=== PATIENT | male | born 1975 | race Caucasian/White ===

== ENCOUNTER 2017-02-09 11:39 | Inpatient (IN) | payer OTHER ==
[2017-02-09 12:51] VITALS: BMI 20.9
--- NOTE | 2017-02-09 14:57 | HP ---
COWS - Scale Resting Pulse: 0= MD 80 or Below Sweatin= Chills/Flushing Restless Observation: 3= Extraneous Movement Pupil Size: 2= Moderately Dilated Bone or Joint Aches: 4=Acute Joint/Muscle Pain Runny Nose/ Eye Tearin= Nasal Congestion GI Upset > 30mins: 1= Stomach Cramp Tremor Observation: 1= Tremor [place], Not Seen Yawning Observation: 1= 1-2x During Session Anxiety or Irritability: 1=Feels Anxious/Irritable Goose Flesh Skin: 0=Smooth Skin COWS Score: 15 CIWA Score - CIWA Score Nausea/Vomitin (N/V/D) Muscle Tremors: 3 Anxiety: 4-Mod. Anxious/Guarded Agitation: 3 Paroxysmal Sweats: 1-Minimal Palms Moist Orientation: 0-Oriented Tacttile Disturbances: 3-Moderate Itch/Numb/Burn Auditory Disturbances: 0-None Visual Disturbances: 0-None Headache: 1-Very Mild CIWA-Ar Total Score: 20 Admission ROS BHS - HPI Chief Complaint: DETOX TX FOR HEROIN AND ALCOHOL DEPENDENCE Allergies/Adverse Reactions: Allergies Allergy/AdvReac Type Severity Reaction Status Date / Time No Known Allergies Allergy Verified 02/09/17 13:47 History of Present Illness: 41 Y/O H/M WITH A HX OF HEROIN, ALCOHOL,COCAINE AND MARIJUANA DEPENDENCE SEEKING DETOX TX Exam Limitations: No Limitations - Ebola screening Have you traveled outside of the country in the last 21 days: No Have you had contact with anyone from an Ebola affected area: No Have you been sick,other than usual withdrawal symptoms: No Do you have a fever: No - Review of Systems Constitutional: Chills, Loss of Appetite, Night Sweats, Changes in sleep, Unintentional Wgt. Loss EENT: reports: Tearing, Nose Congestion, Dental Problems (MISSING UPPER FRONTAL TEETH) Respiratory: reports: Shortness of Breath (HX ASTHMA), Wheezing Cardiac: reports: Lightheadedness GI: reports: Constipated, Diarrhea, Nausea, Poor Appetite, Poor Fluid Intake, Vomiting, Abdominal cramping : reports: Frequency Musculoskeletal: reports: Back Pain, Joint Pain, Muscle Pain Integumentary: reports: Bruising (IVD INJ SITES ON BOTH FOREARMS) Neuro: reports: Headache, Tremors, Unsteady Gait, Dizziness Endocrine: reports: No Symptoms Reported Hematology: reports: No Symptoms Reported Psychiatric: reports: Orientated x3, Anxious, Depressed Other Systems: Reviewed and Negative Patient History - Patient Medical History Hx Anemia: No Hx Asthma: Yes (MDI) Hx Chronic Obstructive Pulmonary Disease (COPD): No Hx Cancer: No Hx Cardiac Disorders: No Hx Congestive Heart Failure: No Hx Hypertension: No Hx Hypercholesterolemia: No Hx Pacemaker: No HX Cerebrovascular Accident: No Hx Seizures: No Hx Dementia: No Hx Diabetes: No Hx Gastrointestinal Disorders: No Hx Liver Disease: No Hx Genitourinary Disorders: No Hx Sexually Transmitted Disorders: No Hx Renal Disease (ESRD): No Hx Thyroid Disease: No Hx Human Immunodeficiency Virus (HIV): No (denies) Hx Hepatitis C: Yes (undetecable) Hx Depression: Yes (NO CURRENT MED) Hx Suicide Attempt: No (DENIES) Hx Bipolar Disorder: Yes Hx Schizophrenia: No - Patient Surgical History Past Surgical History: Yes Hx Neurologic Surgery: No Hx Cataract Extraction: No Hx Cardiac Surgery: No Hx Lung Surgery: No Hx Breast Surgery: No Hx Breast Biopsy: No Hx Abdominal Surgery: Yes (appendectomy) Hx Appendectomy: No Hx Cholecystectomy: No Hx Genitourinary Surgery: No Hx Orthopedic Surgery: No Anesthesia Reaction: No - PPD History Previous Implant?: Yes Documented Results: Negative w/o proof Implanted On Prior R Admission?: Yes Date: 02/25/16 Results: no reading left PPD to be Administered?: Yes - Reproductive History Patient is a Female of Child Bearing Age (11 -55 yrs old): No (MALE) Patient : (N/A) - Smoking Cessation Smoking history: Current every day smoker Have you smoked in the past 12 months: Yes Aproximately how many cigarettes per day: 10 Hx Chewing Tobacco Use: No Initiated information on smoking cessation: Yes 'Breaking Loose' booklet given: 02/09/17 - Substance & Tx. History Hx Alcohol Use: Yes (BEER) Hx Substance Use: Yes (HEROIN/COCAINE/MARIJUANA) Substance Use Type: Alcohol, Cocaine, Heroin, Marijuana Hx Substance Use Treatment: Yes (LAST TX AT [facility] IN [place]) - Substances Abused Heroin Route: Injection Frequency: Daily Amount used: 20 bags Age of first use: 23 Date of Last Use: 02/09/17 Alcohol-beer Route: Oral Frequency: 1-2 times per week Amount used: 2-3 (12 oz.) Age of first use: 38 Date of Last Use: 02/04/17 Marijuana Route: Smoking Frequency: Daily Amount used: $35 Age of first use: 27 Date of Last Use: 02/09/17 Cocaine Amount used: 5 BAGS Age of first use: 36 Date of Last Use: 02/09/17 Family Disease History - Family Disease History Family Disease History: Other: Father (alcohol) Admission Physical Exam [facility] - Vital Signs Vital Signs: Vital Signs - 24 hr 02/09/17 12:48 Temperature 97 F L Pulse Rate 77 Respiratory 20 Rate Blood Pressure 125/78 - Physical General Appearance: Yes: Moderate Distress, Thin, Anxious HEENTM: Yes: EOMI, Normocephalic, [place], Pharynx Normal Respiratory: Yes: Chest Non-Tender, Lungs Clear, Normal Breath Sounds, No Respiratory Distress Neck: Yes: No masses,lesions,Nodules, Supple, Trachea in good position Breast: Yes: Breast Exam Deferred Cardiology: Yes: Regular Rhythm, Regular Rate, S1, S2 Abdominal: Yes: Normal Bowel Sounds, Non Tender, Soft Genitourinary: Yes: Other (N/C) Back: Yes: Within Normal Limits Musculoskeletal: Yes: full range of Motion, Gait Steady Extremities: Yes: Normal Range of Motion, Non-Tender Neurological: Yes: supervisor ore dressing II-XII NML intact, Fully Oriented, Alert Integumentary: Yes: Dry, Warm, Track [place] (NO REDNESS OR SWELLING) Lymphatic: Yes: Within Normal Limits - Diagnostic (1) Alcohol dependence with uncomplicated withdrawal Current Visit: Yes Status: Acute (2) Nicotine dependence Current Visit: Yes Status: Acute Qualifiers: Nicotine product type: cigarettes Substance use status: in withdrawal Qualified Code(s): F17.213 - Nicotine dependence, cigarettes, with withdrawal (3) Uncomplicated sedative, hypnotic or anxiolytic withdrawal Current Visit: No Status: Inactive (4) Weight loss Current Visit: Yes Status: Chronic (5) Asthma Current Visit: No Status: Chronic Qualifiers: Asthma severity: mild intermittent Asthma complication type: uncomplicated Qualified Code(s): J45.20 - Mild intermittent asthma, uncomplicated (6) Hepatitis C carrier Current Visit: Yes Status: Chronic (7) Cocaine dependence, uncomplicated Current Visit: Yes Status: Acute (8) Cannabis dependence, uncomplicated Current Visit: Yes Status: Acute Cleared for Admission S - Detox or Rehab [facility] Level of Care: Medically Managed Detox Regimen/Protocol: Methadone [facility] Breath Alcohol Content Breath Alcohol Content: 0 Urine Drug Screen - Results Drug Screen Negative: No Urine Drug Screen Results: THC-Marijuana, ANDRE-Cocaine, OPI-Opiates
[2017-02-09] MEDS ORDERED: MAG HYDROX/AL HYDROX/SIMETH 30 ML UNIT-DOSE CUP PO PRN (15:09)
[2017-02-09] MEDS ORDERED: MENTHOL/PHENOL 1 EACH UD MM PRN (15:09)
[2017-02-09] MEDS ORDERED: diphenhydrAMINE HCL 50 MG CAPSULE PO PRN (15:09)
[2017-02-09] MEDS ORDERED: IBUPROFEN 400 MG TABLET (FP) PO PRN (15:09)
[2017-02-09] MEDS ORDERED: ACETAMINOPHEN 325 MG TABLET (FP) PO PRN (15:09)
[2017-02-09] MEDS ORDERED: MAGNESIUM HYDROX 2400MG/30ML ORAL SUSPENSION 30 ML CUP PO PRN (15:09)
[2017-02-09] MEDS ORDERED: MAGNESIUM CITRATE 300 ML BOTTLE PO PRN (15:09)
[2017-02-09] MEDS ORDERED: P-EPHED 60MG/TRIPROLIDI 2.5MG TABLET PO PRN (15:09)
[2017-02-09] MEDS ORDERED: guaiFENesin/D-METHORPHAN HB 10 ML UNIT-DOSE CUPS PO PRN (15:09)
[2017-02-09] MEDS ORDERED: LOPERAMIDE HCL 2 MG CAPSULE PO PRN (15:09)
[2017-02-09] MEDS ORDERED: NICOTINE POLACRILEX 2 MG GUM BC PRN (15:09)
[2017-02-09] MEDS ORDERED: hydrOXYzine PAMOATE 25 MG CAPSULE (FP) PO PRN (15:09)
[2017-02-09] MEDS ORDERED: ALBUTEROL SO4 6.7 GM HFA INHALER IH PRN (15:13)
[2017-02-09 17:00] LABS: MCH 31.4 pg (25.7-33.7); MEAN CELL VOLUME 92.2 fl (80-96); PLATELET COUNT 211 K/MM3 (134-434); RDW 13.5 % (11.9-15.9)
[2017-02-09] MEDS ORDERED: METHADONE HCL 10 MG TABLET (FOR DETOX USE ONLY) PO ONE ×2 (17:15→23:00)
[2017-02-09] MEDS: diazePAM 5 MG TABLET PO PRN ×2 (17:31→22:29)
[2017-02-09] MEDS: NICOTINE 14 MG/24 HOURS TOPICAL PATCH TD SCH (18:16)
[2017-02-09 21:11] LABS: URINE APPEARANCE CLEAR; URINE BILIRUBIN NEGATIVE (NEGATIVE); URINE BLOOD NEGATIVE (NEGATIVE); URINE COLOR YELLOW; URINE GLUCOSE (UA) NEGATIVE (NEGATIVE); URINE KETONE NEGATIVE (NEGATIVE); URINE LEUK ESTERASE NEGATIVE (NEGATIVE); URINE NITRITE NEGATIVE (NEGATIVE); URINE PROTEIN NEGATIVE (NEGATIVE); URINE UROBILINOGEN NEGATIVE mg/dL (0.2-1.0)
[2017-02-09] MEDS: THIAMINE HCL 100 MG TABLET (FP) PO SCH (22:30)
[2017-02-10 02:09] LABS: ALBUMIN 4.1 g/dl (3.4-5.0); ANION GAP 6 (8-16); BILIRUBIN,TOTAL 0.5 mg/dL (0.2-1.0); CALCIUM 9.1 mg/dL (8.5-10.1); CO2 32 mmol/L (21-32); CREATININE 0.8 mg/dL (0.7-1.3); GLUCOSE,RANDOM 95 mg/dL (74-106); SGOT/AST 25 U/L (15-37); SGPT/ALT 54 U/L (12-78); TOT PROT 7.3 g/dl (6.4-8.2)
[2017-02-10 02:10] LABS: ALK PHOS 59 U/L (45-117)
[2017-02-10] MEDS: diazePAM 5 MG TABLET PO PRN (07:55)
[2017-02-10] MEDS ORDERED: METHADONE HCL 10 MG TABLET (FOR DETOX USE ONLY) PO ONE (10:00)
[2017-02-10] MEDS ORDERED: PRENATAL VITAMINS W/ FOLIC ACID TABLET (FP) PO SCH (10:00)
[2017-02-10] MEDS: HYDROCORTISONE 0.5% TOPICAL CREAM 30 GM TUBE TP SCH ×2 (10:12→22:29)
[2017-02-10] MEDS: NICOTINE 14 MG/24 HOURS TOPICAL PATCH TD SCH (10:13)
[2017-02-10] MEDS ORDERED: chlordiazePOXIDE HCL 25 MG CAPSULE PO PRN (10:19)
--- NOTE | 2017-02-10 11:02 | CONSULT ---
[facility] Psychiatric Consult - Data Date of interview: 02/10/17 Admission source: [facility] Identifying data: This is 41 years old male with no psychiatric hospitalization history intoxicated with Alcohol, Cocaine, Cannabis, Xanax and Nicotine Substance Abuse History: - Smoking Cessation. Smoking history: Current every day smoker. Have you smoked in the past 12 months: Yes. Aproximately how many cigarettes per day: 10. Hx Chewing Tobacco Use: No. Initiated information on smoking cessation: Yes. 'Breaking Loose' booklet given: 02/09/17. - Substance & Tx. History. Hx Alcohol Use: Yes (BEER). Hx Substance Use: Yes (HEROIN/ COCAINE/MARIJUANA). Substance Use Type: Alcohol, Cocaine, Heroin, Marijuana. Hx Substance Use Treatment: Yes (LAST TX AT [facility] [place] - Substances Abused. Heroin. Route: Injection. Frequency: Daily. Amount used: 20 bags. Age of first use: 23. Date of Last Use: 02/09/17. Alcohol-beer. Route: Oral. Frequency: 1-2 times per week. Amount used: 2-3 (12 oz.). Age of first use: 38. Date of Last Use: 02/04/17. Marijuana. Route: Smoking. Frequency: Daily. Amount used: $35. Age of first use: 27. Date of Last Use: 02/09/17. Cocaine. Amount used: 5 BAGS. Age of first use: 36. Date of Last Use: 02/09/17 Medical History: HepC+, Weight loss hidtory, Asthma, MMTP 20mg per day Psychiatric History: Patient reports no prior psychiatric managenet, preoccupied with insomnia , reports good response on Ambien 10mg po qhs. Donna johnson denies suicidal history Physical/Sexual Abuse/Trauma History: Denies Additional Comment: Ambien 10mg po qhs Mental Status Exam - Mental Status Exam Alert and Oriented to: Person Cognitive Function: Fair Patient Appearance: Unkempt Mood: Sad Affect: Flat Patient Behavior: Sedated Speech Pattern: Delayed Voice Loudness: Mildly Soft/Quiet Thought Process: Circumstantial Thought Disorder: Being Controlled Hallucinations: Denies Suicidal Ideation: Denies Homicidal Ideation: Denies Insight/Judgement: Fair Sleep: Difficulty falling asleep Appetite: Weight loss Muscle strength/Tone: Mild Hypotonicity Gait/Station: Shuffling Additional Comments: Ambien 10mg po qhs Psychiatric Findings - Problem List ([place] 1, 2,3) (1) Alcohol dependence with uncomplicated withdrawal Current Visit: Yes Status: Acute (2) Cannabis dependence, uncomplicated Current Visit: Yes Status: Acute (3) Cocaine dependence, uncomplicated Current Visit: Yes Status: Acute (4) Nicotine dependence Current Visit: Yes Status: Acute Qualifiers: Nicotine product type: cigarettes Substance use status: in withdrawal Qualified Code(s): F17.213 - Nicotine dependence, cigarettes, with withdrawal (5) Alcohol induced sleep disorders Current Visit: No Status: Acute (6) Alcohol-induced mood disorder Current Visit: No Status: Acute (7) Opioid dependence on agonist therapy Current Visit: No Status: Acute (8) Substance induced mood disorder Current Visit: No Status: Acute (9) Methadone maintenance therapy patient Current Visit: No Status: Chronic Comment: last dose taken today with 50mg pending verification (10) Drug-induced mood disorder Current Visit: Yes Status: Acute - Initial Treatment Plan Initial Treatment Plan: Ambien 10mg po qhs prn for insomnia
[2017-02-10] MEDS: chlordiazePOXIDE HCL 25 MG CAPSULE PO SCH ×3 (11:47→22:29)
--- NOTE | 2017-02-10 12:26 | PN ---
S CIWA - CIWA Score Nausea/Vomitin Muscle Tremors: 3 Anxiety: 3 Agitation: 2 Paroxysmal Sweats: 1-Minimal Palms Moist Orientation: 0-Oriented Tacttile Disturbances: 1-Very Mild Itch/Numbness Auditory Disturbances: 1-Very Mild Visual Disturbances: 1-Very Mild Sensitivity Headache: 2-Mild CIWA-Ar Total Score: 17 BHS COWS - Scale Resting Pulse: 0= MD 80 or Below Sweatin= Chills/Flushing Restless Observation: 3= Extraneous Movement Pupil Size: 1= Pupils >than Normal Bone or Joint Aches: 2= Severe Diffuse Aches Runny Nose/ Eye Tearin= Runny Nose/Eyes GI Upset > 30mins: 2= Nausea/Diarrhea Tremor Observation of Outstretched Hands: 2= Slight Tremor Visible Yawning Observation: 1= 1-2x During Session Anxiety or Irritability: 2=Irritable/Anxious Goose Flesh Skin: 0=Smooth Skin COWS Score: 16 S Progress Note (SOAP) Subjective: alert,irritable,anxious,interrupted sleep,pain in he body Objective: 02/10/17 12:23 Vital Signs Temperature 97.7 F 02/10/17 10:00 Pulse Rate 61 02/10/17 10:00 Respiratory Rate 18 02/10/17 10:00 Blood Pressure 105/70 02/10/17 10:00 O2 Sat by Pulse Oximetry (%) 02/10/17 12:24 ekg nsr Laboratory Last Values WBC 9.0 K/mm3 (4.0-10.0) 02/09/17 15:00 RBC 4.44 M/mm3 (4.00-5.60) 02/09/17 15:00 Hgb 13.9 GM/dL (11.7-16.9) 02/09/17 15:00 Hct 41.0 % (35.4-49) 02/09/17 15:00 MCV 92.2 fl (80-96) 02/09/17 15:00 MCH 31.4 pg (25.7-33.7) 02/09/17 15:00 MCHC 34.0 g/dl (32.0-35.9) 02/09/17 15:00 RDW 13.5 % (11.9-15.9) 02/09/17 15:00 Plt Count 211 K/MM3 (134-434) D 02/09/17 15:00 MPV 9.0 fl (7.5-11.1) 02/09/17 15:00 Sodium 140 mmol/L (136-145) 02/09/17 15:00 Potassium 4.4 mmol/L (3.5-5.1) 02/09/17 15:00 Chloride 102 mmol/L (98-107) 02/09/17 15:00 Carbon Dioxide 32 mmol/L (21-32) 02/09/17 15:00 Anion Gap 6 (8-16) L 02/09/17 15:00 BUN 15 mg/dL (7-18) 02/09/17 15:00 Creatinine 0.8 mg/dL (0.7-1.3) 02/09/17 15:00 Creat Clearance w eGFR > 60 (>60) 02/09/17 15:00 Random Glucose 95 mg/dL (74-106) 02/09/17 15:00 Calcium 9.1 mg/dL (8.5-10.1) 02/09/17 15:00 Total Bilirubin 0.5 mg/dL (0.2-1.0) 02/09/17 15:00 AST 25 U/L (15-37) D 02/09/17 15:00 ALT 54 U/L (12-78) 02/09/17 15:00 Alkaline Phosphatase 59 U/L (45-117) 02/09/17 15:00 Total Protein 7.3 g/dl (6.4-8.2) 02/09/17 15:00 Albumin 4.1 g/dl (3.4-5.0) 02/09/17 15:00 Urine Color Yellow 02/09/17 17:01 Urine Appearance Clear 02/09/17 17:01 Urine pH 5.0 (5.0-8.0) 02/09/17 17:01 Ur Specific [place] 1.025 (1.005-1.025) 02/09/17 17:01 Urine Protein Negative (NEGATIVE) 02/09/17 17:01 Urine Glucose (UA) Negative (NEGATIVE) 02/09/17 17:01 Urine Ketones Negative (NEGATIVE) 02/09/17 17:01 Urine Blood Negative (NEGATIVE) 02/09/17 17:01 Urine Nitrite Negative (NEGATIVE) 02/09/17 17:01 Urine Bilirubin Negative (NEGATIVE) 02/09/17 17:01 Urine Urobilinogen Negative mg/dL (0.2-1.0) 02/09/17 17:01 Ur Leukocyte Esterase Negative (NEGATIVE) 02/09/17 17:01 RPR Titer Nonreactive (NONREACTIVE) 02/09/17 15:00 Assessment: 02/10/17 12:25 withdrawal symptom Plan: patient regimen changed to methadone and librium
--- NOTE | 2017-02-10 15:38 | EKG ---
Test Reason : Blood Pressure : / mmHG Vent. Rate : 070 BPM Atrial Rate : 070 BPM P-R Int : 144 ms QRS Dur : 088 ms QT Int : 366 ms P-R-T Axes : 028 116 060 degrees QTc Int : 395 ms NORMAL SINUS RHYTHM LEFT POSTERIOR FASCICULAR BLOCK ABNORMAL ECG NO PREVIOUS ECGS AVAILABLE Confirmed by ZANDRA WELLINGTON MD ([id number]) on 02/10/2017 3:38:09 PM Referred By: Confirmed By:ZANDRA WELLINGTON MD
[2017-02-10] MEDS ORDERED: ZOLPIDEM TARTRATE 10 MG TABLET (PARK CARE ONLY) PO PRN (22:00)
[2017-02-10] MEDS: THIAMINE HCL 100 MG TABLET (FP) PO SCH (22:29)
[2017-02-11] MEDS: chlordiazePOXIDE HCL 25 MG CAPSULE PO SCH (06:03)
[2017-02-11 06:25] VITALS: BP 114/50; PULSE 64; TEMP 97.3
--- NOTE | 2017-02-11 08:10 | PN ---
S CIWA - CIWA Score Nausea/Vomitin Muscle Tremors: 3 Anxiety: 3 Agitation: 3 Paroxysmal Sweats: 1-Minimal Palms Moist Orientation: 0-Oriented Tacttile Disturbances: 1-Very Mild Itch/Numbness Auditory Disturbances: 1-Very Mild Visual Disturbances: 0-None Headache: 2-Mild CIWA-Ar Total Score: 17 BHS COWS - Scale Resting Pulse: 0= MD 80 or Below Sweatin= Chills/Flushing Restless Observation: 3= Extraneous Movement Pupil Size: 1= Pupils >than Normal Bone or Joint Aches: 2= Severe Diffuse Aches Runny Nose/ Eye Tearin= Runny Nose/Eyes GI Upset > 30mins: 2= Nausea/Diarrhea Tremor Observation of Outstretched Hands: 2= Slight Tremor Visible Yawning Observation: 1= 1-2x During Session Anxiety or Irritability: 2=Irritable/Anxious Goose Flesh Skin: 0=Smooth Skin COWS Score: 16 S Progress Note (SOAP) Subjective: alert,irritable,anxious,interrupted sleep,pain in the body and back Objective: 02/11/17 08:08 Vital Signs Temperature 97.3 F L 02/11/17 06:24 Pulse Rate 64 02/11/17 06:24 Respiratory Rate 16 02/11/17 06:24 Blood Pressure 114/50 02/11/17 06:24 O2 Sat by Pulse Oximetry (%) Laboratory Last Values WBC 9.0 K/mm3 (4.0-10.0) 02/09/17 15:00 RBC 4.44 M/mm3 (4.00-5.60) 02/09/17 15:00 Hgb 13.9 GM/dL (11.7-16.9) 02/09/17 15:00 Hct 41.0 % (35.4-49) 02/09/17 15:00 MCV 92.2 fl (80-96) 02/09/17 15:00 MCH 31.4 pg (25.7-33.7) 02/09/17 15:00 MCHC 34.0 g/dl (32.0-35.9) 02/09/17 15:00 RDW 13.5 % (11.9-15.9) 02/09/17 15:00 Plt Count 211 K/MM3 (134-434) D 02/09/17 15:00 MPV 9.0 fl (7.5-11.1) 02/09/17 15:00 Sodium 140 mmol/L (136-145) 02/09/17 15:00 Potassium 4.4 mmol/L (3.5-5.1) 02/09/17 15:00 Chloride 102 mmol/L (98-107) 02/09/17 15:00 Carbon Dioxide 32 mmol/L (21-32) 02/09/17 15:00 Anion Gap 6 (8-16) L 02/09/17 15:00 BUN 15 mg/dL (7-18) 02/09/17 15:00 Creatinine 0.8 mg/dL (0.7-1.3) 02/09/17 15:00 Creat Clearance w eGFR > 60 (>60) 02/09/17 15:00 Random Glucose 95 mg/dL (74-106) 02/09/17 15:00 Calcium 9.1 mg/dL (8.5-10.1) 02/09/17 15:00 Total Bilirubin 0.5 mg/dL (0.2-1.0) 02/09/17 15:00 AST 25 U/L (15-37) D 02/09/17 15:00 ALT 54 U/L (12-78) 02/09/17 15:00 Alkaline Phosphatase 59 U/L (45-117) 02/09/17 15:00 Total Protein 7.3 g/dl (6.4-8.2) 02/09/17 15:00 Albumin 4.1 g/dl (3.4-5.0) 02/09/17 15:00 Urine Color Yellow 02/09/17 17:01 Urine Appearance Clear 02/09/17 17:01 Urine pH 5.0 (5.0-8.0) 02/09/17 17:01 Ur Specific [place] 1.025 (1.005-1.025) 02/09/17 17:01 Urine Protein Negative (NEGATIVE) 02/09/17 17:01 Urine Glucose (UA) Negative (NEGATIVE) 02/09/17 17:01 Urine Ketones Negative (NEGATIVE) 02/09/17 17:01 Urine Blood Negative (NEGATIVE) 02/09/17 17:01 Urine Nitrite Negative (NEGATIVE) 02/09/17 17:01 Urine Bilirubin Negative (NEGATIVE) 02/09/17 17:01 Urine Urobilinogen Negative mg/dL (0.2-1.0) 02/09/17 17:01 Ur Leukocyte Esterase Negative (NEGATIVE) 02/09/17 17:01 RPR Titer Nonreactive (NONREACTIVE) 02/09/17 15:00 Assessment: 02/11/17 08:09 withdrawal symptom Plan: continue detox
--- NOTE | 2017-02-11 08:14 | DS ---
[facility] Detox Discharge Summary Admission Date: 02/09/17 Discharge Date: 02/11/17 - History Present History: Alcohol Dependence, Cannabis Dependence, Cocaine Dependence, Opioid Dependence, Sedative Dependence Additional Comments: patient did not want to complete treatment,singed release amralph,seen by counselor Pertinent Past History: asthma nicotine dependence weight loss - Physical Exam Results Vital Signs: Vital Signs Temperature 97.3 F L 02/11/17 06:24 Pulse Rate 64 02/11/17 06:24 Respiratory Rate 16 02/11/17 06:24 Blood Pressure 114/50 02/11/17 06:24 O2 Sat by Pulse Oximetry (%) Pertinent Admission Physical Exam Findings: withdrawal symptom - Medication Discharge Medications: Ambulatory Orders Albuterol Sulfate Inhaler - [Ventolin Hfa Inhaler -] 2 inh PO Q4H PRN 10/09/15 Zolpidem Tartrate [Ambien] 10 mg PO HS 02/09/17 - AMA Did Patient Leave Against Medical Advice: Yes
[2017-02-11] MEDS ORDERED: METHADONE HCL 5 MG TABLET (FOR DETOX USE ONLY) PO ONE (10:00)
[2017-02-11] MEDS ORDERED: chlordiazePOXIDE HCL 25 MG CAPSULE PO SCH (11:00)
[2017-02-12] MEDS ORDERED: METHADONE HCL 5 MG TABLET (FOR DETOX USE ONLY) PO ONE (10:00)
[2017-02-12] MEDS ORDERED: chlordiazePOXIDE 5 MG CAPSULE PO SCH (11:00)
[2017-02-13] MEDS ORDERED: METHADONE HCL 10 MG TABLET (FOR DETOX USE ONLY) PO ONE (10:00)
[2017-02-13] MEDS ORDERED: chlordiazePOXIDE HCL 10 MG CAPSULE PO SCH (11:00)
[2017-02-14] MEDS ORDERED: METHADONE HCL 5 MG TABLET (FOR DETOX USE ONLY) PO ONE (06:00)
== END 2017-02-11 08:40 | disposition left against medical advice (07) | DRG 770 ==
LOC: YASAS 11:39 → Y6N 16:11
PROVIDERS: ADMIT Internal Medicine; ATTEND Internal Medicine
PROC: HZ2ZZZZ Detoxification Services for Substance Abuse Treatment (ICD-10-PCS; principal; 2017-02-09)
DX: F10.230 Alcohol dependence with withdrawal, uncomplicated (principal); F11.20 Opioid dependence, uncomplicated; F10.24 Alcohol dependence with alcohol-induced mood disorder; F10.282 Alcohol dependence with alcohol-induced sleep disorder; F14.20 Cocaine dependence, uncomplicated; F12.20 Cannabis dependence, uncomplicated; F17.210 Nicotine dependence, cigarettes, uncomplicated; F19.24 Other psychoactive substance dependence with psychoactive substance-induced mood disorder; J45.20 Mild intermittent asthma, uncomplicated; B18.2 Chronic viral hepatitis C
CPT/HCPCS: 36415; 80053; 81003; 85027; 86593; 93005; 93010

== ENCOUNTER 2017-05-30 08:41 | Inpatient (IN) | payer OTHER ==
[2017-05-30 09:13] VITALS: BMI 22.7
--- NOTE | 2017-05-30 13:43 | HP ---
COWS - Scale Resting Pulse: 1= [place] 81-100 Sweatin=Flushed/Facial Moisture Restless Observation: 1= Difficult to Sit Still Pupil Size: 0= Normal to Room Light Bone or Joint Aches: 2= Severe Diffuse Aches Runny Nose/ Eye Tearin= Runny Nose/Eyes GI Upset > 30mins: 2= Nausea/Diarrhea Tremor Observation: 2= Slight Tremor Visible Yawning Observation: 2= >3x During Session Anxiety or Irritability: 2=Irritable/Anxious Goose Flesh Skin: 3=Piloerection COWS Score: 19 CIWA Score - CIWA Score Nausea/Vomitin-Mild Nausea/No Vomiting Muscle Tremors: 4-Moderate,w/Arms Extend Anxiety: 3 Agitation: 3 Paroxysmal Sweats: 3 Orientation: 0-Oriented Tacttile Disturbances: 0-None Auditory Disturbances: 0-None Visual Disturbances: 0-None Headache: 0-None Present CIWA-Ar Total Score: 14 Admission ROS [facility] - HPI Chief Complaint: I am here for detox. Allergies/Adverse Reactions: Allergies Allergy/AdvReac Type Severity Reaction Status Date / Time No Known Allergies Allergy Verified 05/30/17 10:00 History of Present Illness: pt is a 41yr old male with a history of opioid and alcohol dependence seeking detox for treatment. pt had belonged to a methadone maintenance program and last time he was there was 05/02/17. this was confirmed by JOSE Martel and FLOYD Gusman. [facility] network. pt does not want to continue in a [facility] Exam Limitations: Language Barrier (speak and understand only polish) - Ebola screening Have you traveled outside of the country in the last 21 days: No (N) Have you had contact with anyone from an Ebola affected area: No Have you been sick,other than usual withdrawal symptoms: No Do you have a fever: No - Review of Systems Constitutional: Diaphoresis, Loss of Appetite, Night Sweats, Unintentional Wgt. Loss EENT: reports: Tearing, Nose Congestion Respiratory: reports: No Symptoms reported Cardiac: reports: No Symptoms Reported GI: reports: Diarrhea, Nausea, Poor Appetite, Poor Fluid Intake, Vomiting : reports: No Symptoms Reported Musculoskeletal: reports: Back Pain, Joint Pain Integumentary: reports: Flushing, Sweating, Other (right had wound barly healing. pt states he keeps picking the scab.) Neuro: reports: Tingling, Tremors Endocrine: reports: Excessive Sweating, Flushing, Intolerance to Cold, Intolerance to Heat Psychiatric: reports: Judgement Intact, Mood/Affect Appropiate, Orientated x3, Agitated, Anxious Other Systems: Reviewed and Negative Patient History - Patient Medical History Hx Anemia: No Hx Asthma: Yes Hx Chronic Obstructive Pulmonary Disease (COPD): No Hx Cancer: No Hx Cardiac Disorders: No Hx Congestive Heart Failure: No Hx Hypertension: No Hx Hypercholesterolemia: No Hx Pacemaker: No HX Cerebrovascular Accident: No Hx Seizures: No Hx Dementia: No Hx Diabetes: No Hx Gastrointestinal Disorders: No Hx Liver Disease: No Hx Genitourinary Disorders: No Hx Sexually Transmitted Disorders: No Hx Renal Disease (ESRD): No Hx Thyroid Disease: No Hx Human Immunodeficiency Virus (HIV): No (denies) Hx Hepatitis C: Yes (undetecable) Hx Depression: Yes (NO CURRENT MED) Hx Suicide Attempt: No (denies) Hx Bipolar Disorder: Yes Hx Schizophrenia: No - Patient Surgical History Past Surgical History: Yes Hx Neurologic Surgery: No Hx Cataract Extraction: No Hx Cardiac Surgery: No Hx Lung Surgery: No Hx Breast Surgery: No Hx Breast Biopsy: No Hx Abdominal Surgery: Yes (appendectomy) Hx Appendectomy: No Hx Cholecystectomy: No Hx Genitourinary Surgery: No Hx Section: No Hx Orthopedic Surgery: No Anesthesia Reaction: No - PPD History Previous Implant?: Yes Documented Results: Negative w/o proof Implanted On Prior R Admission?: Yes PPD to be Administered?: Yes - Reproductive History Patient is a Female of Child Bearing Age (11 -55 yrs old): No - Smoking Cessation Smoking history: Current every day smoker Have you smoked in the past 12 months: Yes Aproximately how many cigarettes per day: 20 Hx Chewing Tobacco Use: No Initiated information on smoking cessation: Yes 'Breaking Loose' booklet given: 05/30/17 - Substance & Tx. History Hx Alcohol Use: Yes Hx Substance Use: Yes Substance Use Type: Alcohol, Cocaine, Heroin Hx Substance Use Treatment: Yes (last detox 02/2017 [facility]) - Substances Abused Heroin Route: Injection Amount used: 10 bags Age of first use: 20 Date of Last Use: 05/29/17 Cocaine Route: Injection Frequency: Daily Amount used: $200-300 Age of first use: 20 Date of Last Use: 05/29/17 Alcohol-beer Route: Oral Frequency: Daily Amount used: 8 (12 oz.) Age of first use: 17 Date of Last Use: 05/29/17 Marijuana Route: Smoking Frequency: 1-2 times per week Amount used: $10 Age of first use: 12 Date of Last Use: 05/29/17 Family Disease History - Family Disease History Family Disease History: Other: Father (alcohol) Admission Physical Exam [facility] - Vital Signs Vital Signs: Vital Signs - 24 hr 05/30/17 09:10 Temperature 98.8 F Pulse Rate 86 Respiratory 18 Rate Blood Pressure 138/76 - Physical General Appearance: Yes: Appropriately Dressed, Moderate Distress, Tremorous, Irritable, Sweating, Anxious HEENTM: Yes: Hearing grossly Normal, Normal Voice, Rhinorrhea Respiratory: Yes: Lungs Clear, Normal Breath Sounds, No Respiratory Distress Neck: Yes: No masses,lesions,Nodules Breast: Yes: Within Normal Limits Cardiology: Yes: Regular Rhythm, Regular Rate, S1, S2 Abdominal: Yes: Within Normal Limits Genitourinary: Yes: Within Normal Limits Back: Yes: Normal Inspection Musculoskeletal: Yes: Back pain Extremities: Yes: Normal Inspection, Tremors Neurological: Yes: Fully Oriented, Alert, Normal Response Integumentary: Yes: Diaphoresis, Track [place], Other (right hand wound with some scabbing.) Lymphatic: Yes: Within Normal Limits - Diagnostic (1) Alcohol dependence with uncomplicated withdrawal Current Visit: Yes Status: Chronic (2) Cannabis dependence, uncomplicated Current Visit: Yes Status: Chronic (3) Cocaine dependence, uncomplicated Current Visit: Yes Status: Chronic (4) Hepatitis-C Current Visit: No Status: Chronic Qualifiers: Viral hepatitis chronicity: chronic Hepatic coma status: without hepatic coma Qualified Code(s): B18.2 - Chronic viral hepatitis C (5) Nicotine dependence Current Visit: Yes Status: Chronic Qualifiers: Nicotine product type: cigarettes Substance use status: uncomplicated Qualified Code(s): F17.210 - Nicotine dependence, cigarettes, uncomplicated (6) Opioid dependence with withdrawal Current Visit: Yes Status: Chronic (7) Asthma Current Visit: No Status: Chronic Qualifiers: Asthma severity: mild Asthma complication type: uncomplicated (8) Wound healing, delayed Current Visit: Yes Status: Acute Cleared for Admission [facility] - Detox or Rehab [facility] Level of Care: Medically Managed Detox Regimen/Protocol: Methadone/Librium [facility] Breath Alcohol Content Breath Alcohol Content: 0 Urine Drug Screen - Results Drug Screen Negative: No Urine Drug Screen Results: THC-Marijuana, ANDRE-Cocaine, OPI-Opiates
[2017-05-30] MEDS ORDERED: chlordiazePOXIDE HCL 25 MG CAPSULE PO PRN (13:47)
[2017-05-30] MEDS ORDERED: guaiFENesin/D-METHORPHAN HB 10 ML UNIT-DOSE CUPS PO PRN (13:47)
[2017-05-30] MEDS ORDERED: NICOTINE POLACRILEX 4 MG GUM BUC PRN (13:47)
[2017-05-30] MEDS ORDERED: P-EPHED 60MG/TRIPROLIDI 2.5MG TABLET PO PRN (13:47)
[2017-05-30] MEDS ORDERED: ACETAMINOPHEN 325 MG TABLET (FP) PO PRN (13:47)
[2017-05-30] MEDS ORDERED: IBUPROFEN 400 MG TABLET (FP) PO PRN (13:47)
[2017-05-30] MEDS ORDERED: LOPERAMIDE HCL 2 MG CAPSULE PO PRN (13:47)
[2017-05-30] MEDS ORDERED: MENTHOL/PHENOL 1 EACH UD MM PRN (13:47)
[2017-05-30] MEDS ORDERED: MAGNESIUM CITRATE 300 ML BOTTLE PO PRN (13:47)
[2017-05-30] MEDS ORDERED: MAG HYDROX/AL HYDROX/SIMETH 30 ML UNIT-DOSE CUP PO PRN (13:47)
[2017-05-30] MEDS ORDERED: hydrOXYzine PAMOATE 50 MG CAPSULE (FP) PO PRN (13:47)
[2017-05-30] MEDS ORDERED: MAGNESIUM HYDROX 2400MG/30ML ORAL SUSPENSION 30 ML CUP PO PRN (13:47)
[2017-05-30] MEDS ORDERED: ALBUTEROL SO4 18 GM HFA INHALER IH PRN (13:48)
[2017-05-30] MEDS ORDERED: chlordiazePOXIDE HCL 25 MG CAPSULE PO ONE (14:02)
[2017-05-30] MEDS ORDERED: METHADONE HCL 10 MG TABLET (FOR DETOX USE ONLY) PO ONE ×2 (14:02→23:00)
[2017-05-30] MEDS: chlordiazePOXIDE HCL 25 MG CAPSULE PO SCH ×2 (17:23→22:37)
[2017-05-30 22:08] LABS: URINE APPEARANCE CLOUDY; URINE BILIRUBIN NEGATIVE (NEGATIVE); URINE BLOOD NEGATIVE (NEGATIVE); URINE COLOR YELLOW; URINE GLUCOSE (UA) NEGATIVE (NEGATIVE); URINE KETONE NEGATIVE (NEGATIVE); URINE NITRITE NEGATIVE (NEGATIVE); URINE PROTEIN NEGATIVE (NEGATIVE); URINE UROBILINOGEN NEGATIVE mg/dL (0.2-1.0)
[2017-05-30] MEDS: THIAMINE HCL 100 MG TABLET (FP) PO SCH (22:36)
[2017-05-30] MEDS: SULFAMETHOXAZOLE/TRIMETHOPRIM 800MG/160MG D.S. TABLET PO SCH (22:37)
[2017-05-30] MEDS: BACITRACIN 0.9 GM PACKET TP SCH (22:39)
[2017-05-31] MEDS: chlordiazePOXIDE HCL 25 MG CAPSULE PO SCH ×4 (06:42→23:28)
[2017-05-31 09:33] LABS: URINE LEUK ESTERASE Negative (NEGATIVE)
[2017-05-31] MEDS ORDERED: METHADONE HCL 10 MG TABLET (FOR DETOX USE ONLY) PO SCH (10:00)
[2017-05-31 10:14] LABS: MCH 29.8 pg (25.7-33.7); MCHC 33.4 g/dl (32.0-35.9); MEAN CELL VOLUME 89.4 fl (80-96); MEAN PLT VOLUME 8.9 fl (7.5-11.1); PLATELET COUNT 270 K/MM3 (134-434); RDW 13.4 % (11.9-15.9); WHITE BLOOD COUNT 9.5 K/mm3 (4.0-10.0)
--- NOTE | 2017-05-31 10:18 | EKG ---
Test Reason : Blood Pressure : / mmHG Vent. Rate : 079 BPM Atrial Rate : 079 BPM P-R Int : 138 ms QRS Dur : 088 ms QT Int : 374 ms P-R-T Axes : 030 099 042 degrees QTc Int : 428 ms NORMAL SINUS RHYTHM RIGHTWARD AXIS BORDERLINE ECG WHEN COMPARED WITH ECG OF 09-FEB-2017 16:09, NO SIGNIFICANT CHANGE WAS FOUND Confirmed by BEBETO LI MD ([id number]) on 05/31/2017 10:17:47 AM Referred By: Confirmed By:BEBETO LI MD
[2017-05-31] MEDS: SULFAMETHOXAZOLE/TRIMETHOPRIM 800MG/160MG D.S. TABLET PO SCH ×2 (10:34→23:27)
[2017-05-31] MEDS: BACITRACIN 0.9 GM PACKET TP SCH ×2 (10:34→23:27)
[2017-05-31] MEDS: PRENATAL VITAMINS W/ FOLIC ACID TABLET (FP) PO SCH (10:34)
[2017-05-31] MEDS: NICOTINE 21 MG/24 HOURS TOPICAL PATCH TD SCH (10:35)
[2017-05-31 10:52] LABS: ALBUMIN 3.3 g/dl (3.4-5.0); ALK PHOS 90 U/L (45-117); ANION GAP 7 (8-16); BILIRUBIN,TOTAL 0.3 mg/dL (0.2-1.0); CALCIUM 8.6 mg/dL (8.5-10.1); CO2 28 mmol/L (21-32); CREATININE 0.8 mg/dL (0.7-1.3); GLUCOSE,RANDOM 143 mg/dL (74-106); SGOT/AST 23 U/L (15-37); SGPT/ALT 39 U/L (12-78); TOT PROT 7.2 g/dl (6.4-8.2)
--- NOTE | 2017-05-31 10:57 | PN ---
[facility] CIWA - CIWA Score Nausea/Vomitin-No Nausea/No Vomiting Muscle Tremors: 4-Moderate,w/Arms Extend Anxiety: 4-Mod. Anxious/Guarded Agitation: 4-Moderately Restless Paroxysmal Sweats: 1-Minimal Palms Moist Orientation: 0-Oriented Tacttile Disturbances: 3-Moderate Itch/Numb/Burn Auditory Disturbances: 0-None Visual Disturbances: 0-None Headache: 0-None Present CIWA-Ar Total Score: 16 S COWS - Scale Resting Pulse: 1= [place] 81-100 Sweatin= Chills/Flushing Restless Observation: 3= Extraneous Movement Pupil Size: 2= Moderately Dilated Bone or Joint Aches: 4=Acute Joint/Muscle Pain Runny Nose/ Eye Tearin= Nasal Congestion GI Upset > 30mins: 0= None Tremor Observation of Outstretched Hands: 1= Tremor [place], Not Seen Yawning Observation: 2= >3x During Session Anxiety or Irritability: 2=Irritable/Anxious Goose Flesh Skin: 0=Smooth Skin COWS Score: 17 [facility] Progress Note (SOAP) Subjective: ANXIETY,SWEATS,SLIGHT TREMORS,FATIGUE. Objective: 05/31/17 10:56 Vital Signs Temperature 96.3 F L 05/31/17 09:10 Pulse Rate 87 05/31/17 09:10 Respiratory Rate 16 05/31/17 09:10 Blood Pressure 131/78 05/31/17 09:10 O2 Sat by Pulse Oximetry (%) Laboratory Last Values WBC 9.5 K/mm3 (4.0-10.0) 05/31/17 05:45 RBC 4.17 M/mm3 (4.00-5.60) 05/31/17 05:45 Hgb 12.4 GM/dL (11.7-16.9) D 05/31/17 05:45 Hct 37.2 % (35.4-49) 05/31/17 05:45 MCV 89.4 fl (80-96) 05/31/17 05:45 MCH 29.8 pg (25.7-33.7) 05/31/17 05:45 MCHC 33.4 g/dl (32.0-35.9) 05/31/17 05:45 RDW 13.4 % (11.9-15.9) 05/31/17 05:45 Plt Count 270 K/MM3 (134-434) D 05/31/17 05:45 MPV 8.9 fl (7.5-11.1) 05/31/17 05:45 Urine Color Yellow 05/30/17 15:00 Urine Appearance Cloudy 05/30/17 15:00 Urine pH 6.0 (5.0-8.0) 05/30/17 15:00 Ur Specific [place] 1.025 (1.001-1.035) 05/30/17 15:00 Urine Protein Negative (NEGATIVE) 05/30/17 15:00 Urine Glucose (UA) Negative (NEGATIVE) 05/30/17 15:00 Urine Ketones Negative (NEGATIVE) 05/30/17 15:00 Urine Blood Negative (NEGATIVE) 05/30/17 15:00 Urine Nitrite Negative (NEGATIVE) 05/30/17 15:00 Urine Bilirubin Negative (NEGATIVE) 05/30/17 15:00 Urine Urobilinogen Negative mg/dL (0.2-1.0) 05/30/17 15:00 Ur Leukocyte Esterase Negative (NEGATIVE) 05/30/17 15:00 Assessment: 05/31/17 10:57 WITHDRAWAL SX Plan: CONTINUE DETOX
--- NOTE | 2017-05-31 14:03 | CONSULT ---
[facility] Psychiatric Consult - Data Date of interview: 05/31/17 Admission source: [facility] Identifying data: Another admission to [facility] for this 41 y/o male seeking detox treatment,on ,for heroin,cocaine,alcohol and marijuana dependence.Patient is single,a father of five,homeless,unemployed and deprived of financial assistance. Substance Abuse History: Confirmed by patient.Smoking history: Current every day smoker. Have you smoked in the past 12 months: Yes. Aproximately how many cigarettes per day: 20. Hx Chewing Tobacco Use: No. Initiated information on smoking cessation: Yes. 'Breaking Loose' booklet given: 05/30/17. - Substance & Tx. History. Hx Alcohol Use: Yes. Hx Substance Use: Yes. Substance Use Type : Alcohol, Cocaine, Heroin. Hx Substance Use Treatment: Yes (last detox 02/2017 [facility]). - Substances Abused. Heroin. Route: Injection. Amount used: 10 bags. Age of first use: 20. Date of Last Use: 05/29/17. Cocaine. Route : Injection. Frequency: Daily. Amount used: $200-300. Age of first use: 20. Date of Last Use: 05/29/17. Alcohol-beer. Route: Oral. Frequency: Daily. Amount used: 8 (12 oz.). Age of first use: 17. Date of Last Use: 05/29/17. * * Marijuana. Route: Smoking. Frequency: 1-2 times per week. Amount used: $ 10. Age of first use: 12. Date of Last Use: 05/29/17 Medical History: Bronchial asthma,hepatitis C and a history of appendectomy. Psychiatric History: Patient denies. Physical/Sexual Abuse/Trauma History: No reported history of abuse. Additional Comment: Urine Drug Screen Results: THC-Marijuana, ANDRE-Cocaine, OPI- Opiates.Noted. Mental Status Exam - Mental Status Exam Alert and Oriented to: Time, Place, Person Cognitive Function: Grossly Intact Patient Appearance: Well Groomed Mood: Withdrawn, Hopeful, Euthymic Affect: Normal Range Patient Behavior: Fatigued, Appropriate, Cooperative Speech Pattern: Clear Voice Loudness: Normal Thought Process: Goal Oriented Thought Disorder: Not Present Hallucinations: Denies Suicidal Ideation: Denies Homicidal Ideation: Denies Insight/Judgement: Poor Sleep: Well Appetite: Good Muscle strength/Tone: Normal Gait/Station: Normal Psychiatric Findings - Problem List ([place] 1, 2,3) (1) Opioid dependence with withdrawal Current Visit: Yes Status: Acute (2) Alcohol dependence with uncomplicated withdrawal Current Visit: Yes Status: Acute (3) Cannabis dependence, uncomplicated Current Visit: Yes Status: Acute (4) Cocaine dependence, uncomplicated Current Visit: Yes Status: Acute (5) Nicotine dependence Current Visit: Yes Status: Acute Qualifiers: Nicotine product type: cigarettes Substance use status: in withdrawal Qualified Code(s): F17.213 - Nicotine dependence, cigarettes, with withdrawal (6) Substance induced mood disorder Current Visit: Yes Status: Acute - Initial Treatment Plan Initial Treatment Plan: Psychoeducation.Detoxification.Observation.
[2017-05-31] MEDS: THIAMINE HCL 100 MG TABLET (FP) PO SCH (23:27)
[2017-06-01] MEDS: chlordiazePOXIDE HCL 25 MG CAPSULE PO SCH ×3 (06:27→10:09)
[2017-06-01] MEDS: BACITRACIN 0.9 GM PACKET TP SCH ×2 (10:07→22:09)
[2017-06-01] MEDS: PRENATAL VITAMINS W/ FOLIC ACID TABLET (FP) PO SCH (10:07)
[2017-06-01] MEDS: SULFAMETHOXAZOLE/TRIMETHOPRIM 800MG/160MG D.S. TABLET PO SCH ×2 (10:07→22:09)
[2017-06-01] MEDS: METHADONE HCL 5 MG TABLET (FOR DETOX USE ONLY) PO SCH (10:07)
[2017-06-01] MEDS: NICOTINE 21 MG/24 HOURS TOPICAL PATCH TD SCH (10:08)
--- NOTE | 2017-06-01 11:34 | PN ---
[facility] CIWA - CIWA Score Nausea/Vomitin-No Nausea/No Vomiting Muscle Tremors: 4-Moderate,w/Arms Extend Anxiety: 4-Mod. Anxious/Guarded Agitation: 4-Moderately Restless Paroxysmal Sweats: 1-Minimal Palms Moist Orientation: 0-Oriented Tacttile Disturbances: 3-Moderate Itch/Numb/Burn Auditory Disturbances: 0-None Visual Disturbances: 0-None Headache: 0-None Present CIWA-Ar Total Score: 16 S COWS - Scale Resting Pulse: 0= IN 80 or Below Sweatin= Chills/Flushing Restless Observation: 3= Extraneous Movement Pupil Size: 2= Moderately Dilated Bone or Joint Aches: 4=Acute Joint/Muscle Pain Runny Nose/ Eye Tearin= Nasal Congestion GI Upset > 30mins: 0= None Tremor Observation of Outstretched Hands: 1= Tremor [place], Not Seen Yawning Observation: 1= 1-2x During Session Anxiety or Irritability: 2=Irritable/Anxious Goose Flesh Skin: 0=Smooth Skin COWS Score: 15 S Progress Note (SOAP) Subjective: ANXIETY, SWEATS/CHILLS, FATIGUE. Objective: 06/01/17 11:33 Vital Signs Temperature 95.7 F L 06/01/17 09:09 Pulse Rate 77 06/01/17 09:09 Respiratory Rate 18 06/01/17 09:09 Blood Pressure 116/71 06/01/17 09:09 O2 Sat by Pulse Oximetry (%) Laboratory Last Values WBC 9.5 K/mm3 (4.0-10.0) 05/31/17 05:45 RBC 4.17 M/mm3 (4.00-5.60) 05/31/17 05:45 Hgb 12.4 GM/dL (11.7-16.9) D 05/31/17 05:45 Hct 37.2 % (35.4-49) 05/31/17 05:45 MCV 89.4 fl (80-96) 05/31/17 05:45 MCH 29.8 pg (25.7-33.7) 05/31/17 05:45 MCHC 33.4 g/dl (32.0-35.9) 05/31/17 05:45 RDW 13.4 % (11.9-15.9) 05/31/17 05:45 Plt Count 270 K/MM3 (134-434) D 05/31/17 05:45 MPV 8.9 fl (7.5-11.1) 05/31/17 05:45 Sodium 139 mmol/L (136-145) 05/31/17 05:45 Potassium 3.8 mmol/L (3.5-5.1) 05/31/17 05:45 Chloride 104 mmol/L (98-107) 05/31/17 05:45 Carbon Dioxide 28 mmol/L (21-32) 05/31/17 05:45 Anion Gap 7 (8-16) L 05/31/17 05:45 BUN 19 mg/dL (7-18) H D 05/31/17 05:45 Creatinine 0.8 mg/dL (0.7-1.3) 05/31/17 05:45 Creat Clearance w eGFR > 60 (>60) 05/31/17 05:45 Random Glucose 143 mg/dL (74-106) H D 05/31/17 05:45 Calcium 8.6 mg/dL (8.5-10.1) 05/31/17 05:45 Total Bilirubin 0.3 mg/dL (0.2-1.0) D 05/31/17 05:45 AST 23 U/L (15-37) 05/31/17 05:45 ALT 39 U/L (12-78) D 05/31/17 05:45 Alkaline Phosphatase 90 U/L (45-117) D 05/31/17 05:45 Total Protein 7.2 g/dl (6.4-8.2) 05/31/17 05:45 Albumin 3.3 g/dl (3.4-5.0) L 05/31/17 05:45 Urine Color Yellow 05/30/17 15:00 Urine Appearance Cloudy 05/30/17 15:00 Urine pH 6.0 (5.0-8.0) 05/30/17 15:00 Ur Specific [place] 1.025 (1.001-1.035) 05/30/17 15:00 Urine Protein Negative (NEGATIVE) 05/30/17 15:00 Urine Glucose (UA) Negative (NEGATIVE) 05/30/17 15:00 Urine Ketones Negative (NEGATIVE) 05/30/17 15:00 Urine Blood Negative (NEGATIVE) 05/30/17 15:00 Urine Nitrite Negative (NEGATIVE) 05/30/17 15:00 Urine Bilirubin Negative (NEGATIVE) 05/30/17 15:00 Urine Urobilinogen Negative mg/dL (0.2-1.0) 05/30/17 15:00 Ur Leukocyte Esterase Negative (NEGATIVE) 05/30/17 15:00 RPR Titer Nonreactive (NONREACTIVE) 05/31/17 05:45 Assessment: 06/01/17 11:33 WITHDRAWAL SX Plan: CONTINUE DETOX
[2017-06-01] MEDS: chlordiazePOXIDE 5 MG CAPSULE PO SCH ×2 (17:46→22:09)
[2017-06-01] MEDS: THIAMINE HCL 100 MG TABLET (FP) PO SCH (22:09)
[2017-06-02] MEDS: chlordiazePOXIDE 5 MG CAPSULE PO SCH ×2 (05:03→10:42)
[2017-06-02] MEDS: METHADONE HCL 5 MG TABLET (FOR DETOX USE ONLY) PO SCH (10:39)
[2017-06-02] MEDS: BACITRACIN 0.9 GM PACKET TP SCH (10:39)
[2017-06-02] MEDS: PRENATAL VITAMINS W/ FOLIC ACID TABLET (FP) PO SCH (10:39)
[2017-06-02] MEDS: SULFAMETHOXAZOLE/TRIMETHOPRIM 800MG/160MG D.S. TABLET PO SCH (10:39)
[2017-06-02] MEDS: NICOTINE 21 MG/24 HOURS TOPICAL PATCH TD SCH (10:40)
--- NOTE | 2017-06-02 11:29 | PN ---
[facility] Progress Note (SOAP) Subjective: DECREASED ANXIETY,IRRITABILITY. C/O SWEATS, FATIGUE. Objective: 06/02/17 11:28 Vital Signs Temperature 98.1 F 06/02/17 09:11 Pulse Rate 81 06/02/17 09:11 Respiratory Rate 18 06/02/17 09:11 Blood Pressure 116/70 06/02/17 09:11 O2 Sat by Pulse Oximetry (%) Laboratory Last Values WBC 9.5 K/mm3 (4.0-10.0) 05/31/17 05:45 RBC 4.17 M/mm3 (4.00-5.60) 05/31/17 05:45 Hgb 12.4 GM/dL (11.7-16.9) D 05/31/17 05:45 Hct 37.2 % (35.4-49) 05/31/17 05:45 MCV 89.4 fl (80-96) 05/31/17 05:45 MCH 29.8 pg (25.7-33.7) 05/31/17 05:45 MCHC 33.4 g/dl (32.0-35.9) 05/31/17 05:45 RDW 13.4 % (11.9-15.9) 05/31/17 05:45 Plt Count 270 K/MM3 (134-434) D 05/31/17 05:45 MPV 8.9 fl (7.5-11.1) 05/31/17 05:45 Sodium 139 mmol/L (136-145) 05/31/17 05:45 Potassium 3.8 mmol/L (3.5-5.1) 05/31/17 05:45 Chloride 104 mmol/L (98-107) 05/31/17 05:45 Carbon Dioxide 28 mmol/L (21-32) 05/31/17 05:45 Anion Gap 7 (8-16) L 05/31/17 05:45 BUN 19 mg/dL (7-18) H D 05/31/17 05:45 Creatinine 0.8 mg/dL (0.7-1.3) 05/31/17 05:45 Creat Clearance w eGFR > 60 (>60) 05/31/17 05:45 POC Glucometer 128 UNITS (80-120) 06/02/17 05:43 Random Glucose 143 mg/dL (74-106) H D 05/31/17 05:45 Calcium 8.6 mg/dL (8.5-10.1) 05/31/17 05:45 Total Bilirubin 0.3 mg/dL (0.2-1.0) D 05/31/17 05:45 AST 23 U/L (15-37) 05/31/17 05:45 ALT 39 U/L (12-78) D 05/31/17 05:45 Alkaline Phosphatase 90 U/L (45-117) D 05/31/17 05:45 Total Protein 7.2 g/dl (6.4-8.2) 05/31/17 05:45 Albumin 3.3 g/dl (3.4-5.0) L 05/31/17 05:45 Urine Color Yellow 05/30/17 15:00 Urine Appearance Cloudy 05/30/17 15:00 Urine pH 6.0 (5.0-8.0) 05/30/17 15:00 Ur Specific [place] 1.025 (1.001-1.035) 05/30/17 15:00 Urine Protein Negative (NEGATIVE) 05/30/17 15:00 Urine Glucose (UA) Negative (NEGATIVE) 05/30/17 15:00 Urine Ketones Negative (NEGATIVE) 05/30/17 15:00 Urine Blood Negative (NEGATIVE) 05/30/17 15:00 Urine Nitrite Negative (NEGATIVE) 05/30/17 15:00 Urine Bilirubin Negative (NEGATIVE) 05/30/17 15:00 Urine Urobilinogen Negative mg/dL (0.2-1.0) 05/30/17 15:00 Ur Leukocyte Esterase Negative (NEGATIVE) 05/30/17 15:00 RPR Titer Nonreactive (NONREACTIVE) 05/31/17 05:45 Assessment: 06/02/17 11:28 WITHDRAWAL SX Plan: CONTINUE DETOX
[2017-06-02 13:12] VITALS: BP 106/67; PULSE 82; TEMP 97
--- NOTE | 2017-06-02 15:36 | DS ---
[facility] Detox Discharge Summary Admission Date: 05/30/17 Discharge Date: 06/02/17 - History Present History: Alcohol Dependence, Cannabis Dependence, Cocaine Dependence, Opioid Dependence Additional Comments: PT DECLINED TO FINISH DETOX DESPITE ALL EFFORTS TO ENCOURAGE PT TO STAY AND COMPLETE. PT WAS SPOKEN TO BY COUNSELOR JONATHAN. BENEDICTO Boss X 3. NAD. PT DID NOT WANT TO BE SEEN BY THE PROVIDER AND JUST WANTED TO LEAVE "NOW" PER STAFF. PT TO FOLLOW UP WITH HIS PCP/PMD FOR MEDICAL MANAGEMENT NEEDED. Pertinent Past History: ASTHMA HEP C - Physical Exam Results Vital Signs: Vital Signs Temperature 97.0 F L 06/02/17 13:11 Pulse Rate 82 06/02/17 13:11 Respiratory Rate 18 06/02/17 13:11 Blood Pressure 106/67 06/02/17 13:11 O2 Sat by Pulse Oximetry (%) Pertinent Admission Physical Exam Findings: WITHDRAWAL SX - Treatment Hospital Course: Discharged Condition Good - Medication Discharge Medications: Ambulatory Orders Albuterol Sulfate Inhaler - [Ventolin Hfa Inhaler -] 2 inh PO Q4H PRN 10/09/15 Zolpidem Tartrate [Ambien] 10 mg PO HS 02/09/17 - Diagnosis (1) Wound healing, delayed Status: Acute (2) Alcohol dependence with uncomplicated withdrawal Status: Acute (3) Cannabis dependence, uncomplicated Status: Acute (4) Cocaine dependence, uncomplicated Status: Acute (5) Nicotine dependence Status: Acute Qualifiers: Nicotine product type: cigarettes Substance use status: in withdrawal Qualified Code(s): F17.213 - Nicotine dependence, cigarettes, with withdrawal (6) Opioid dependence with withdrawal Status: Acute (7) Asthma Status: Chronic Qualifiers: Asthma severity: mild Asthma persistence: unspecified Asthma complication type: uncomplicated Qualified Code(s): J45.909 - Unspecified asthma, uncomplicated (8) Hepatitis-C Status: Chronic Qualifiers: Viral hepatitis chronicity: chronic Hepatic coma status: without hepatic coma Qualified Code(s): B18.2 - Chronic viral hepatitis C - AMA Did Patient Leave Against Medical Advice: Yes
[2017-06-02] MEDS ORDERED: chlordiazePOXIDE HCL 10 MG CAPSULE PO SCH (17:00)
[2017-06-03] MEDS ORDERED: METHADONE HCL 10 MG TABLET (FOR DETOX USE ONLY) PO SCH (10:00)
[2017-06-04] MEDS ORDERED: METHADONE HCL 5 MG TABLET (FOR DETOX USE ONLY) PO SCH (06:00)
== END 2017-06-02 13:20 | disposition left against medical advice (07) | DRG 770 ==
LOC: YASAS 08:41 → Y3N 12:06
PROVIDERS: ADMIT Internal Medicine; ATTEND Internal Medicine
PROC: HZ2ZZZZ Detoxification Services for Substance Abuse Treatment (ICD-10-PCS; principal; 2017-05-30)
DX: F11.23 Opioid dependence with withdrawal (principal); F10.230 Alcohol dependence with withdrawal, uncomplicated; F14.20 Cocaine dependence, uncomplicated; F12.20 Cannabis dependence, uncomplicated; F17.213 Nicotine dependence, cigarettes, with withdrawal; J45.909 Unspecified asthma, uncomplicated; B18.2 Chronic viral hepatitis C
CPT/HCPCS: 36415; 80053; 81003; 85027; 86593; 93005; 93010

== ENCOUNTER 2017-09-05 09:39 | Inpatient (IN) | payer OTHER ==
[2017-09-05 10:39] VITALS: BMI 21.9
[2017-09-05] MEDS ORDERED: MAGNESIUM CITRATE 300 ML BOTTLE PO PRN (12:49)
[2017-09-05] MEDS ORDERED: P-EPHED 60MG/TRIPROLIDI 2.5MG TABLET PO PRN (12:49)
[2017-09-05] MEDS ORDERED: chlordiazePOXIDE HCL 25 MG CAPSULE PO PRN (12:49)
[2017-09-05] MEDS ORDERED: IBUPROFEN 400 MG TABLET (FP) PO PRN (12:49)
[2017-09-05] MEDS ORDERED: guaiFENesin/D-METHORPHAN HB 10 ML UNIT-DOSE CUPS PO PRN (12:49)
[2017-09-05] MEDS ORDERED: NICOTINE POLACRILEX 2 MG GUM BC PRN (12:49)
[2017-09-05] MEDS ORDERED: hydrOXYzine PAMOATE 50 MG CAPSULE (FP) PO PRN (12:49)
[2017-09-05] MEDS ORDERED: LOPERAMIDE HCL 2 MG CAPSULE PO PRN (12:49)
[2017-09-05] MEDS ORDERED: MAGNESIUM HYDROX 2400MG/30ML ORAL SUSPENSION 30 ML CUP PO PRN (12:49)
[2017-09-05] MEDS ORDERED: ACETAMINOPHEN 325 MG TABLET (FP) PO PRN (12:49)
[2017-09-05] MEDS ORDERED: MENTHOL/PHENOL 1 EACH UD MM PRN (12:49)
[2017-09-05] MEDS ORDERED: MAG HYDROX/AL HYDROX/SIMETH 30 ML UNIT-DOSE CUP PO PRN (12:49)
[2017-09-05] MEDS ORDERED: ALBUTEROL SO4 18 GM HFA INHALER IH PRN (12:53)
--- NOTE | 2017-09-05 12:59 | HP ---
COWS - Scale Resting Pulse: 0= [place] 80 or Below Sweatin= Chills/Flushing Restless Observation: 1= Difficult to Sit Still Pupil Size: 1= Pupils >than Normal Bone or Joint Aches: 1= Mild Discomfort Runny Nose/ Eye Tearin= Nasal Congestion GI Upset > 30mins: 2= Nausea/Diarrhea Tremor Observation: 2= Slight Tremor Visible Yawning Observation: 2= >3x During Session Anxiety or Irritability: 2=Irritable/Anxious Goose Flesh Skin: 3=Piloerection COWS Score: 16 CIWA Score - CIWA Score Nausea/Vomitin Muscle Tremors: 3 Anxiety: 3 Agitation: 3 Paroxysmal Sweats: 3 Orientation: 0-Oriented Tacttile Disturbances: 1-Very Mild Itch/Numbness Auditory Disturbances: 0-None Visual Disturbances: 0-None Headache: 1-Very Mild CIWA-Ar Total Score: 17 Admission ROS S - [facility] Chief Complaint: alcohol and heroin withdrawal sx Allergies/Adverse Reactions: Allergies Allergy/AdvReac Type Severity Reaction Status Date / Time No Known Allergies Allergy Verified 09/05/17 11:08 History of Present Illness: 42 yo m with h/o OUD on MMTP 60mg daily LDM 08/25/2016, has been idu heroin and cocaine, reports chronic alcohoism with alcohol withdrwal syndrome when he does nto drink, denies benzo use. smokes ths. PMHX hep c+, asthma, anxiety, depressiona nd insomnia in opioid withdrawal at this time, Exam Limitations: No Limitations - Ebola screening Have you traveled outside of the country in the last 21 days: No Have you had contact with anyone from an Ebola affected area: No Have you been sick,other than usual withdrawal symptoms: No Do you have a fever: No - Review of Systems Constitutional: Chills, Diaphoresis, Night Sweats, Changes in sleep, Weakness, Unintentional Wgt. Loss EENT: reports: Tearing, Nose Congestion Respiratory: reports: No Symptoms reported, Wheezing (astham) Cardiac: reports: No Symptoms Reported, Palpitations (when he uses) GI: reports: Diarrhea, Nausea, Poor Appetite, Poor Fluid Intake, Vomiting, Indigestion, Abdominal cramping : reports: No Symptoms Reported Musculoskeletal: reports: Back Pain, Joint Pain, Muscle Pain, Joint Stiffness Integumentary: reports: Flushing, Lesions (scarred tracks left antecubital fossa no infection noted, hardened and clloused), Sweating Neuro: reports: Tremors Endocrine: reports: Increased Thirst Hematology: reports: No Symptoms Reported Psychiatric: reports: Judgement Intact, Mood/Affect Appropiate, Orientated x3, Anxious, Depressed Patient History - Patient Medical History Hx Anemia: No Hx Asthma: Yes Hx Chronic Obstructive Pulmonary Disease (COPD): No Hx Cancer: No Hx Cardiac Disorders: No Hx Congestive Heart Failure: No Hx Hypertension: No Hx Hypercholesterolemia: No Hx Pacemaker: No HX Cerebrovascular Accident: No Hx Seizures: No Hx Dementia: No Hx Diabetes: No Hx Gastrointestinal Disorders: No Hx Liver Disease: No Hx Genitourinary Disorders: No Hx Sexually Transmitted Disorders: No Hx Renal Disease (ESRD): No Hx Thyroid Disease: No Hx Human Immunodeficiency Virus (HIV): No (denies) Hx Hepatitis C: Yes (undetecable) Hx Depression: Yes Hx Suicide Attempt: No (no suicidal ideation at thsi time) Hx Bipolar Disorder: Yes Hx Schizophrenia: No - Patient Surgical History Past Surgical History: Yes Hx Neurologic Surgery: No Hx Cataract Extraction: No Hx Cardiac Surgery: No Hx Lung Surgery: No Hx Breast Surgery: No Hx Breast Biopsy: No Hx Abdominal Surgery: Yes (appendectomy) Hx Appendectomy: No Hx Cholecystectomy: No Hx Genitourinary Surgery: No Hx Section: No Hx Orthopedic Surgery: No Hx Hysterectomy: No Anesthesia Reaction: No - PPD History Previous Implant?: Yes Documented Results: Negative w/o proof Implanted On Prior [facility] Admission?: Yes Date: 02/25/16 Results: no reading left - Reproductive History Patient is a Female of Child Bearing Age (11 -55 yrs old): No Patient : No - Smoking Cessation Smoking history: Current every day smoker Have you smoked in the past 12 months: Yes Aproximately how many cigarettes per day: 20 Hx Chewing Tobacco Use: No Initiated information on smoking cessation: Yes 'Breaking Loose' booklet given: 09/05/17 - Substance & Tx. History Hx Alcohol Use: Yes Hx Substance Use: Yes Substance Use Type: Alcohol, Cocaine, Heroin, Marijuana, Opiates, Prescribed Hx Substance Use Treatment: Yes (MMTP 60mg dailyu , ld 08/25/2017) - Substances Abused Alcohol Route: Oral Frequency: Daily Amount used: 6pk beer/ 1pint liquor Age of first use: 40 Date of Last Use: 09/04/17 Cocaine Route: Injection Frequency: Daily Amount used: $70 Age of first use: 42 Date of Last Use: 09/04/17 Heroin Route: Injection Frequency: Daily Amount used: 5 bags Age of first use: 17 Date of Last Use: 09/04/17 Family Disease History - Family Disease History Family Disease History: Other: Father (alcohol) Admission Physical Exam S - Vital Signs Vital Signs: Vital Signs - 24 hr 09/05/17 10:33 Temperature 97.9 F Pulse Rate 71 Respiratory 20 Rate Blood Pressure 124/83 - Physical General Appearance: Yes: Nourished, Appropriately Dressed, Disheveled, Mild Distress, Thin, Tremorous, Irritable, Sweating, Anxious HEENTM: Yes: EOMI, Hearing grossly Normal, Normocephalic, Normal Voice, [place], Pharynx Normal, Nasal Congestion, Rhinorrhea Respiratory: Yes: Within Normal Limits, Chest Non-Tender, Lungs Clear, Normal Breath Sounds, No Respiratory Distress, No Accessory Muscle Use Neck: Yes: Within Normal Limits, No masses,lesions,Nodules, Trachea in good position Breast: Yes: Breast Exam Deferred Cardiology: Yes: Within Normal Limits, Regular Rhythm, Regular Rate, S1, S2 Abdominal: Yes: Normal Bowel Sounds, Non Tender, Flat, Soft, Increased Bowel Sounds Genitourinary: Yes: Within Normal Limits Back: Yes: Muscle Spasm Musculoskeletal: Yes: full range of Motion, Gait Steady, Pelvis Stable, Back pain, Muscle Pain Extremities: Yes: Normal Capillary Refill, Normal Range of Motion, Non-Tender, Tremors Neurological: Yes: gate person II-XII NML intact, Fully Oriented, Alert, Motor Strength 5/5, Normal Response, Depressed Affect Integumentary: Yes: Normal Color, Warm, Diaphoresis, Moist, Track Martinez Lymphatic: Yes: Within Normal Limits - Addiitonal Findings: withdrawal sx - Diagnostic (1) Alcohol dependence with uncomplicated withdrawal Current Visit: Yes Status: Acute (2) Alcohol induced sleep disorders Current Visit: Yes Status: Acute (3) Alcohol-induced mood disorder Current Visit: Yes Status: Acute (4) Cannabis dependence, uncomplicated Current Visit: Yes Status: Acute (5) Cocaine dependence, uncomplicated Current Visit: Yes Status: Chronic (6) Drug-induced mood disorder Current Visit: Yes Status: Acute (7) Nicotine dependence Current Visit: Yes Status: Chronic Qualifiers: (8) Opioid dependence on agonist therapy Current Visit: Yes Status: Chronic (9) Opioid dependence with withdrawal Current Visit: Yes Status: Acute (10) Substance induced mood disorder Current Visit: Yes Status: Acute (11) Wound healing, delayed Current Visit: Yes Status: Chronic (12) Asthma Current Visit: Yes Status: Chronic Qualifiers: (13) Hepatitis-C Current Visit: Yes Status: Chronic Qualifiers: Viral hepatitis chronicity: chronic (14) Methadone maintenance therapy patient Current Visit: Yes Status: Acute Comment: last dose taken today with 50mg pending verification (15) Weight loss Current Visit: Yes Status: Acute Cleared for Admission [facility] - Detox or Rehab S Level of Care: Medically Managed Detox Regimen/Protocol: Librium [facility] Breath Alcohol Content Breath Alcohol Content: 0 Urine Drug Screen - Results Drug Screen Negative: No Urine Drug Screen Results: THC-Marijuana, ANDRE-Cocaine, OPI-Opiates
[2017-09-05] MEDS ORDERED: METHADONE HCL 10 MG TABLET PO ONE ×2 (13:03→14:15)
[2017-09-05] MEDS ORDERED: chlordiazePOXIDE HCL 25 MG CAPSULE PO ONE (14:15)
[2017-09-05] MEDS: NICOTINE 21 MG/24 HOURS TOPICAL PATCH TD SCH (15:00)
[2017-09-05] MEDS: chlordiazePOXIDE HCL 25 MG CAPSULE PO SCH ×2 (18:11→22:35)
[2017-09-05 22:32] LABS: URINE APPEARANCE TURBID; URINE BILIRUBIN NEGATIVE (NEGATIVE); URINE BLOOD NEGATIVE (NEGATIVE); URINE COLOR YELLOW; URINE GLUCOSE (UA) NEGATIVE (NEGATIVE); URINE KETONE NEGATIVE (NEGATIVE); URINE LEUK ESTERASE NEGATIVE (NEGATIVE); URINE NITRITE NEGATIVE (NEGATIVE); URINE PROTEIN NEGATIVE (NEGATIVE); URINE UROBILINOGEN NEGATIVE mg/dL (0.2-1.0)
[2017-09-05] MEDS: THIAMINE HCL 100 MG TABLET (FP) PO SCH (22:34)
[2017-09-06] MEDS ORDERED: METHADONE HCL 40 MG DISPERSABLE TABLET PO ONE (06:00)
[2017-09-06] MEDS: chlordiazePOXIDE HCL 25 MG CAPSULE PO SCH ×4 (06:40→22:39)
[2017-09-06] MEDS ORDERED: PRENATAL VITAMINS W/ FOLIC ACID TABLET (FP) PO SCH (10:00)
--- NOTE | 2017-09-06 10:15 | CONSULT ---
[facility] Psychiatric Consult - Data Date of interview: 09/06/17 Admission source: [facility] Identifying data: Pt. is a 42 year old male, single, father of five, unemployed , and living in a care home. This is one of multiple admissions for patient. Pt. admitted to for alcohol, cocaine, and opiate dependence. Substance Abuse History: Following information confirmed with Mr. Vieyra: - Smoking Cessation. Smoking history: Current every day smoker. Have you smoked in the past 12 months: Yes. Aproximately how many cigarettes per day: 20. Hx Chewing Tobacco Use: No. Initiated information on smoking cessation: Yes. ' Breaking Loose' booklet given: 09/05/17. - Substance & Tx. History. Hx Alcohol Use: Yes. Hx Substance Use: Yes. Substance Use Type: Alcohol, Cocaine , Heroin, Marijuana, Opiates, Prescribed. Hx Substance Use Treatment: Yes ( MMTP 60mg dailyu , ldm 08/25/2017). - Substances Abused. Alcohol. Route: Oral. Frequency: Daily. Amount used: 6pk beer/ 1pint liquor. Age of first use : 40. Date of Last Use: 09/04/17. Cocaine. Route: Injection. Frequency: Daily. Amount used: $70. Age of first use: 42. Date of Last Use: 09/04/17. * * Heroin. Route: Injection. Frequency: Daily. Amount used: 5 bags. Age of first use: 17. Date of Last Use: 09/04/17 Medical History: Hep C , Asthma, appendectomy Psychiatric History: Pt. reports his first psychiatric hospitalization last month (aug 2017) after experiencing a panic attack. Pt. states he was admitted to [facility] psychiatric unit for three days. Pt. unaware which medication he was prescribed. Pt. denies h/o suicide attempt. Pt. denies suicidal and homicidal ideation. Physical/Sexual Abuse/Trauma History: Denies. Mental Status Exam - Mental Status Exam Alert and Oriented to: Time, Place, Person Cognitive Function: Good Patient Appearance: Unkempt Mood: Withdrawn Affect: Mood Congruent Patient Behavior: Cooperative Speech Pattern: Appropriate Voice Loudness: Normal Thought Process: Goal Oriented Thought Disorder: Not Present Hallucinations: Denies Suicidal Ideation: Denies Homicidal Ideation: Denies Insight/Judgement: Poor Sleep: Poorly Appetite: Fair Muscle strength/Tone: Normal Gait/Station: Other (Did not observe patien't gait.) Psychiatric Findings - Problem List ([place] 1, 2,3) (1) Substance-induced sleep disorder Current Visit: Yes Status: Acute (2) Alcohol dependence with uncomplicated withdrawal Current Visit: Yes Status: Acute (3) Opioid dependence with withdrawal Current Visit: Yes Status: Acute (4) Substance induced mood disorder Current Visit: Yes Status: Acute (5) Cocaine dependence, uncomplicated Current Visit: Yes Status: Chronic (6) Nicotine dependence Current Visit: Yes Status: Chronic Qualifiers: (7) Alcohol induced sleep disorders Current Visit: Yes Status: Acute (8) Cannabis dependence, uncomplicated Current Visit: Yes Status: Acute - Initial Treatment Plan Initial Treatment Plan: Psychoeducation provided. Detoxification in progress. Ambien 10mg qhs ordered. Benefits and side effects discussed (sleep walking) . Verbal consent given. Will continue to monitor.
[2017-09-06 10:16] LABS: HEMATOCRIT 44.7 % (35.4-49); HEMOGLOBIN 14.8 GM/dL (11.7-16.9); MCH 29.1 pg (25.7-33.7); MCHC 33.1 g/dl (32.0-35.9); MEAN PLT VOLUME 9.6 fl (7.5-11.1); PLATELET COUNT 305 K/MM3 (134-434); RBC 5.08 M/mm3 (4.00-5.60); RDW 14.1 % (11.9-15.9); WHITE BLOOD COUNT 12.2 K/mm3 (4.0-10.0)
[2017-09-06 10:31] LABS: CHLORIDE 96 mmol/L (98-107); POTASSIUM 4.3 mmol/L (3.5-5.1); SODIUM 133 mmol/L (136-145)
--- NOTE | 2017-09-06 10:51 | PN ---
S CIWA - CIWA Score Nausea/Vomitin Muscle Tremors: 3 Anxiety: 3 Agitation: 3 Paroxysmal Sweats: 1-Minimal Palms Moist Orientation: 0-Oriented Tacttile Disturbances: 1-Very Mild Itch/Numbness Auditory Disturbances: 1-Very Mild Visual Disturbances: 0-None Headache: 2-Mild CIWA-Ar Total Score: 17 [facility] Progress Note (SOAP) Subjective: ALERT,IRRITABLE,ANXIOUS,INTERRUPTED SLEEP,TREMOR,INTERRUPTED SLEEP,PAIN IN THE BODY Objective: 09/06/17 10:49 Vital Signs Temperature 98.2 F 09/06/17 06:00 Pulse Rate 72 09/06/17 06:00 Respiratory Rate 18 09/06/17 06:00 Blood Pressure 142/84 09/06/17 06:00 O2 Sat by Pulse Oximetry (%) Laboratory Last Values WBC 12.2 K/mm3 (4.0-10.0) H 09/06/17 05:45 RBC 5.08 M/mm3 (4.00-5.60) D 09/06/17 05:45 Hgb 14.8 GM/dL (11.7-16.9) D 09/06/17 05:45 Hct 44.7 % (35.4-49) D 09/06/17 05:45 MCV 88.0 fl (80-96) 09/06/17 05:45 MCH 29.1 pg (25.7-33.7) 09/06/17 05:45 MCHC 33.1 g/dl (32.0-35.9) 09/06/17 05:45 RDW 14.1 % (11.9-15.9) 09/06/17 05:45 Plt Count 305 K/MM3 (134-434) 09/06/17 05:45 MPV 9.6 fl (7.5-11.1) 09/06/17 05:45 Sodium 133 mmol/L (136-145) L 09/06/17 05:45 Potassium 4.3 mmol/L (3.5-5.1) 09/06/17 05:45 Chloride 96 mmol/L (98-107) L 09/06/17 05:45 Urine Color Yellow 09/05/17 16:00 Urine Appearance Turbid 09/05/17 16:00 Urine pH 7.0 (5.0-8.0) 09/05/17 16:00 Ur Specific [place] 1.025 (1.001-1.035) 09/05/17 16:00 Urine Protein Negative (NEGATIVE) 09/05/17 16:00 Urine Glucose (UA) Negative (NEGATIVE) 09/05/17 16:00 Urine Ketones Negative (NEGATIVE) 09/05/17 16:00 Urine Blood Negative (NEGATIVE) 09/05/17 16:00 Urine Nitrite Negative (NEGATIVE) 09/05/17 16:00 Urine Bilirubin Negative (NEGATIVE) 09/05/17 16:00 Urine Urobilinogen Negative mg/dL (0.2-1.0) 09/05/17 16:00 Ur Leukocyte Esterase Negative (NEGATIVE) 09/05/17 16:00 LABS PENDING Assessment: 09/06/17 10:50 WITHDRAWAL SYMPTOM Plan: CONTINUE DETOX,ENCOURAGE ORAL FLUID,REPEAT CBC IN AM
[2017-09-06] MEDS: NICOTINE 21 MG/24 HOURS TOPICAL PATCH TD SCH (11:00)
[2017-09-06 11:05] LABS: ALBUMIN 4.1 g/dl (3.4-5.0); ALK PHOS 96 U/L (45-117); ANION GAP 12 (8-16); BILIRUBIN,TOTAL 0.5 mg/dL (0.2-1.0); BLOOD UREA NITROGEN 15 mg/dL (7-18); CALCIUM 9.4 mg/dL (8.5-10.1); CO2 25 mmol/L (21-32); CREATININE 0.9 mg/dL (0.7-1.3); GLUCOSE,RANDOM 124 mg/dL (74-106); SGOT/AST 31 U/L (15-37); SGPT/ALT 55 U/L (12-78); TOT PROT 9.1 g/dl (6.4-8.2)
--- NOTE | 2017-09-06 12:06 | EKG ---
Test Reason : Blood Pressure : / mmHG Vent. Rate : 063 BPM Atrial Rate : 063 BPM P-R Int : 138 ms QRS Dur : 088 ms QT Int : 396 ms P-R-T Axes : 075 109 064 degrees QTc Int : 405 ms NORMAL SINUS RHYTHM RIGHTWARD AXIS BORDERLINE ECG WHEN COMPARED WITH ECG OF 30-MAY-2017 16:56, NO SIGNIFICANT CHANGE WAS FOUND Confirmed by MD Aura, Aris ([id number]) on 09/06/2017 12:05:48 PM Referred By: Confirmed By:Aris Chavarria MD
[2017-09-06] MEDS ORDERED: ZOLPIDEM TARTRATE 5 MG TABLET PO PRN (22:00)
[2017-09-06] MEDS: THIAMINE HCL 100 MG TABLET (FP) PO SCH (22:39)
[2017-09-07] MEDS ORDERED: METHADONE HCL 10 MG TABLET ONE (05:12)
[2017-09-07] MEDS ORDERED: METHADONE HCL 40 MG DISPERSABLE TABLET ONE (05:12)
[2017-09-07] MEDS: chlordiazePOXIDE HCL 25 MG CAPSULE PO SCH (05:56)
[2017-09-07] MEDS ORDERED: METHADONE 40 MG, METHADONE 10 MG PO ONE (06:00)
--- NOTE | 2017-09-07 08:07 | PN ---
[facility] CIWA - CIWA Score Nausea/Vomitin Muscle Tremors: 3 Anxiety: 3 Agitation: 2 Paroxysmal Sweats: 1-Minimal Palms Moist Orientation: 0-Oriented Tacttile Disturbances: 1-Very Mild Itch/Numbness Auditory Disturbances: 1-Very Mild Visual Disturbances: 0-None Headache: 2-Mild CIWA-Ar Total Score: 16 [facility] Progress Note (SOAP) Subjective: ALERT,IRRITABLE,ANXIOUS,INTERRUPTED SLEEP,TREMOR Objective: 09/07/17 08:04 Vital Signs Temperature 98.2 F 09/07/17 06:22 Pulse Rate 71 09/07/17 06:22 Respiratory Rate 16 09/07/17 06:22 Blood Pressure 121/76 09/07/17 06:22 O2 Sat by Pulse Oximetry (%) WITHDRAWAL SYMPTOM REPEAT CBC PENDING Assessment: 09/07/17 08:06 WITHDRAWAL SYMPTOM Plan: CONTINUE DETOX
--- NOTE | 2017-09-07 08:20 | PN ---
S Progress Note Note: PATIENT DID NOT WANT TO COMPLETE TREATMENT,SIGNED RELEASE AMA,DID NOT GIVE ANY REASON STATED HE HAS TO GO HOME, AL ATTEMPTS TO ENCOURAGE PATIENT TO STAY WITH NO AVAIL
--- NOTE | 2017-09-07 08:28 | DS ---
[facility] Detox Discharge Summary Admission Date: 09/05/17 Discharge Date: 09/07/17 - History Present History: Alcohol Dependence, Cocaine Dependence Additional Comments: PATIENT DID NOT WANT TO COMPLETE TREATMENT,STATED HE HAS TO GO HOME,ALL ATTEMPTS TO ENCOURAGE PATIENT TO STAY WITH NO AVAIL, SIGNED RELEASE AMA Pertinent Past History: ASTHMA HEPATITIS C WEIGHT DECREASED NICOTINE DEPENDENCE ALCOHOL INDUCED SLEEP DISORDER ALCOHOL INDUCED MOOD DISORDER METHADONE MAINTENANCE THERAPY PATIENT - Physical Exam Results Vital Signs: Vital Signs Temperature 98.2 F 09/07/17 06:22 Pulse Rate 71 09/07/17 06:22 Respiratory Rate 16 09/07/17 06:22 Blood Pressure 121/76 09/07/17 06:22 O2 Sat by Pulse Oximetry (%) Pertinent Admission Physical Exam Findings: WITHDRAWAL SIGNS AND SYMPTOM - Medication Discharge Medications: Ambulatory Orders Albuterol Sulfate Inhaler - [Ventolin HFA Inhaler -] 2 inh PO Q4H PRN 10/09/15 - Diagnosis (1) Alcohol dependence with uncomplicated withdrawal Current Visit: Yes Status: Acute (2) Alcohol induced sleep disorders Current Visit: Yes Status: Acute (3) Alcohol-induced mood disorder Current Visit: Yes Status: Acute (4) Cannabis dependence, uncomplicated Current Visit: Yes Status: Acute (5) Weight loss Current Visit: Yes Status: Acute (6) Cocaine dependence, uncomplicated Current Visit: Yes Status: Chronic (7) Hepatitis-C Current Visit: Yes Status: Chronic Qualifiers: Viral hepatitis chronicity: chronic (8) Nicotine dependence Current Visit: Yes Status: Chronic Qualifiers: (9) Asthma Current Visit: Yes Status: Chronic Qualifiers: (10) Opioid dependence on agonist therapy Current Visit: Yes Status: Chronic - AMA Did Patient Leave Against Medical Advice: Yes
[2017-09-07 10:02] LABS: MCH 29.3 pg (25.7-33.7); MCHC 33.2 g/dl (32.0-35.9); MEAN CELL VOLUME 88.2 fl (80-96); MEAN PLT VOLUME 8.3 fl (7.5-11.1); PLATELET COUNT 278 K/MM3 (134-434); RBC 4.42 M/mm3 (4.00-5.60); RDW 14.2 % (11.9-15.9); WHITE BLOOD COUNT 10.6 K/mm3 (4.0-10.0)
[2017-09-07 10:44] VITALS: BP 125/61; PULSE 77; TEMP 98.4
[2017-09-07] MEDS ORDERED: METHADONE HCL 10 MG TABLET PO ONE (13:04)
[2017-09-07] MEDS ORDERED: chlordiazePOXIDE 5 MG CAPSULE PO SCH (17:00)
[2017-09-08] MEDS ORDERED: METHADONE 40 MG, METHADONE 20 MG PO ONE (06:00)
[2017-09-08] MEDS ORDERED: METHADONE HCL 10 MG TABLET PO ONE (13:05)
[2017-09-08] MEDS ORDERED: chlordiazePOXIDE HCL 10 MG CAPSULE PO SCH (17:00)
== END 2017-09-07 09:15 | disposition left against medical advice (07) | DRG 770 ==
LOC: YASAS 09:39 → Y6N 13:37
PROVIDERS: ADMIT Internal Medicine; ATTEND Internal Medicine
PROC: HZ2ZZZZ Detoxification Services for Substance Abuse Treatment (ICD-10-PCS; principal; 2017-09-05)
DX: F10.230 Alcohol dependence with withdrawal, uncomplicated (principal); F10.24 Alcohol dependence with alcohol-induced mood disorder; F10.282 Alcohol dependence with alcohol-induced sleep disorder; F11.20 Opioid dependence, uncomplicated; F14.20 Cocaine dependence, uncomplicated; F12.20 Cannabis dependence, uncomplicated; F17.210 Nicotine dependence, cigarettes, uncomplicated; F19.24 Other psychoactive substance dependence with psychoactive substance-induced mood disorder; B18.2 Chronic viral hepatitis C; J45.909 Unspecified asthma, uncomplicated; Z87.898 Personal history of other specified conditions
CPT/HCPCS: 36415; 80053; 81003; 85027; 86593; 93005; 93010

== ENCOUNTER 2017-09-21 09:09 | Inpatient (IN) | payer OTHER ==
[2017-09-21 11:15] VITALS: BMI 23.1
--- NOTE | 2017-09-21 13:11 | HP ---
Admission ROS [facility] Chief Complaint: i want to go to rehab Allergies/Adverse Reactions: Allergies Allergy/AdvReac Type Severity Reaction Status Date / Time No Known Allergies Allergy Verified 09/21/17 13:20 History of Present Illness: 42 years old male with long history of alcohol nicotine dependence in methadone program Exam Limitations: No Limitations - Ebola screening Have you traveled outside of the country in the last 21 days: No Have you had contact with anyone from an Ebola affected area: No Have you been sick,other than usual withdrawal symptoms: No Do you have a fever: No - Review of Systems Constitutional: Loss of Appetite, Unintentional Wgt. Loss, Unexplained wgt Loss EENT: reports: No Symptoms Reported Respiratory: reports: No Symptoms reported Cardiac: reports: No Symptoms Reported GI: reports: Poor Appetite : reports: No Symptoms Reported Musculoskeletal: reports: Back Pain, Joint Pain, Muscle Pain, Neck Pain Integumentary: reports: No Symptoms Reported Neuro: reports: No Symptoms reported Endocrine: reports: No Symptoms Reported Hematology: reports: No Symptoms Reported Psychiatric: reports: Judgement Intact, Orientated x3, Anxious, Depressed Other Systems: Reviewed and Negative Patient History - Patient Medical History Hx Anemia: No Hx Asthma: Yes Hx Chronic Obstructive Pulmonary Disease (COPD): No Hx Cancer: No Hx Cardiac Disorders: No Hx Congestive Heart Failure: No Hx Hypertension: No Hx Hypercholesterolemia: No Hx Pacemaker: No HX Cerebrovascular Accident: No Hx Seizures: No Hx Dementia: No Hx Diabetes: No Hx Gastrointestinal Disorders: No Hx Liver Disease: No Hx Genitourinary Disorders: No Hx Sexually Transmitted Disorders: No Hx Renal Disease (ESRD): No Hx Thyroid Disease: No Hx Human Immunodeficiency Virus (HIV): No (denies) Hx Hepatitis C: Yes (undetecable) Hx Depression: No Hx Suicide Attempt: No (no suicidal ideation at thsi time) Hx Bipolar Disorder: Yes Hx Schizophrenia: No - Patient Surgical History Past Surgical History: Yes Hx Neurologic Surgery: No Hx Cataract Extraction: No Hx Cardiac Surgery: No Hx Lung Surgery: No Hx Breast Surgery: No Hx Breast Biopsy: No Hx Abdominal Surgery: Yes (appendectomy) Hx Appendectomy: No Hx Cholecystectomy: No Hx Genitourinary Surgery: No Hx Orthopedic Surgery: No Anesthesia Reaction: No - PPD History Previous Implant?: Yes Documented Results: Negative w/proof Implanted On Prior [facility] Admission?: Yes Date: 02/25/16 Results: no reading left PPD to be Administered?: Yes - Smoking Cessation Smoking history: Current every day smoker Have you smoked in the past 12 months: Yes Aproximately how many cigarettes per day: 20 Cigars Per Day: 0 Hx Chewing Tobacco Use: No Initiated information on smoking cessation: Yes 'Breaking Loose' booklet given: 09/21/17 - Substance & Tx. History Hx Alcohol Use: Yes Hx Substance Use: Yes Substance Use Type: Alcohol, Marijuana, Opiates, Tranquilizers Hx Substance Use Treatment: Yes (09/2017) Family Disease History - Family Disease History Family Disease History: [place]: Father (alcoholdeceased), Other: Father Admission Physical Exam [facility] - Vital Signs Vital Signs: Vital Signs - 24 hr 09/21/17 11:09 Temperature 97.2 F L Pulse Rate 83 Respiratory 20 Rate Blood Pressure 110/76 - Physical General Appearance: Yes: No Apparent Distress, Appropriately Dressed, Thin HEENTM: Yes: Hearing grossly Normal, Normal ENT Inspection, Normocephalic, Normal Voice Respiratory: Yes: Chest Non-Tender, No Respiratory Distress, No Accessory Muscle Use, Wheezing Neck: Yes: Supple, Trachea in good position Breast: Yes: Breasts Symetrical Cardiology: Yes: Regular Rhythm, Regular Rate, S1, S2 Abdominal: Yes: Normal Bowel Sounds, Non Tender, Soft Genitourinary: Yes: Within Normal Limits Back: Yes: Normal Inspection Musculoskeletal: Yes: full range of Motion, Gait Steady Extremities: Yes: Normal Inspection, Normal Range of Motion, Non-Tender Neurological: Yes: Fully Oriented, Alert, Motor Strength 5/5, Normal Mood/Affect , Normal Response Integumentary: Yes: Warm, Track Martinez (right fore arm iv) Lymphatic: Yes: Within Normal Limits - Diagnostic (1) Alcohol dependence with uncomplicated withdrawal Current Visit: Yes Status: Acute (2) Methadone maintenance therapy patient Current Visit: Yes Status: Chronic Comment: last dose taken today with 50mg pending verification (3) Weight loss Current Visit: Yes Status: Acute (4) Asthma Current Visit: Yes Status: Chronic Qualifiers: Asthma severity: mild Asthma persistence: intermittent Asthma complication type: with status asthmaticus Qualified Code(s): J45.22 - Mild intermittent asthma with status asthmaticus (5) Hepatitis-C Current Visit: No Status: Resolved Qualifiers: Viral hepatitis chronicity: chronic Hepatic coma status: without hepatic coma Qualified Code(s): B18.2 - Chronic viral hepatitis C Comment: treated x 3 months completed (6) Nicotine dependence Current Visit: Yes Status: Acute Qualifiers: Nicotine product type: cigarettes Substance use status: in withdrawal Qualified Code(s): F17.213 - Nicotine dependence, cigarettes, with withdrawal Cleared for Admission [facility] - Detox or Rehab [facility] Level of Care: Observation Bed Detox Regimen/Protocol: Not Applicable Claeared for Rehab Admission: Yes [facility] Breath Alcohol Content Breath Alcohol Content: 0 Urine Drug Screen - Control Is Test Valid: Yes - Results Drug Screen Negative: No Urine Drug Screen Results: THC-Marijuana, ANDRE-Cocaine, OPI-Opiates, BZO- Benzodiazepines, MTD-Methadone Inpatient Rehab Admission - Initial Determination Are CD services needed?: Yes Free of communicable disease: Yes Not in need of hospitalization: Yes - Rehab Admission Criteria Previous failed treatment: Yes Poor recovery environment: Yes Comorbidities: Yes Lacks judgement: No Patient is meeting Inpatient Rehab admission criteria:: Yes
[2017-09-21] MEDS ORDERED: P-EPHED 60MG/TRIPROLIDI 2.5MG TABLET PO PRN (13:19)
[2017-09-21] MEDS ORDERED: MENTHOL/PHENOL 1 EACH UD MM PRN (13:19)
[2017-09-21] MEDS ORDERED: MAGNESIUM HYDROX 2400MG/30ML ORAL SUSPENSION 30 ML CUP PO PRN (13:19)
[2017-09-21] MEDS ORDERED: MAG HYDROX/AL HYDROX/SIMETH 30 ML UNIT-DOSE CUP PO PRN (13:19)
[2017-09-21] MEDS ORDERED: guaiFENesin/D-METHORPHAN HB 10 ML UNIT-DOSE CUPS PO PRN (13:19)
[2017-09-21] MEDS ORDERED: LOPERAMIDE HCL 2 MG CAPSULE PO PRN (13:19)
[2017-09-21] MEDS ORDERED: ACETAMINOPHEN 325 MG TABLET (FP) PO PRN (13:19)
[2017-09-21] MEDS ORDERED: NICOTINE POLACRILEX 4 MG GUM BUC PRN (13:19)
[2017-09-21] MEDS ORDERED: MAGNESIUM CITRATE 300 ML BOTTLE PO PRN (13:19)
[2017-09-21] MEDS ORDERED: IBUPROFEN 400 MG TABLET (FP) PO PRN (13:19)
[2017-09-21] MEDS ORDERED: TUBERCULIN PPD 5 TU/0.1ML VIAL ID ONE (20:15)
[2017-09-21 21:07] LABS: URINE APPEARANCE CLEAR; URINE BILIRUBIN NEGATIVE (NEGATIVE); URINE BLOOD NEGATIVE (NEGATIVE); URINE COLOR LTYELLOW; URINE GLUCOSE (UA) NEGATIVE (NEGATIVE); URINE KETONE NEGATIVE (NEGATIVE); URINE LEUK ESTERASE NEGATIVE (NEGATIVE); URINE NITRITE NEGATIVE (NEGATIVE); URINE PROTEIN NEGATIVE (NEGATIVE); URINE UROBILINOGEN NEGATIVE mg/dL (0.2-1.0)
[2017-09-21] MEDS: THIAMINE HCL 100 MG TABLET (FP) PO SCH (22:02)
[2017-09-21] MEDS: MELATONIN 5 MG TABLETS PO SCH (22:02)
[2017-09-22] MEDS ORDERED: METHADONE HCL 10 MG TABLET PO SCH (07:45)
--- NOTE | 2017-09-22 08:23 | EKG ---
Test Reason : Blood Pressure : / mmHG Vent. Rate : 079 BPM Atrial Rate : 079 BPM P-R Int : 140 ms QRS Dur : 090 ms QT Int : 368 ms P-R-T Axes : 031 101 054 degrees QTc Int : 421 ms NORMAL SINUS RHYTHM RIGHTWARD AXIS BORDERLINE ECG WHEN COMPARED WITH ECG OF 05-SEP-2017 15:06, NO SIGNIFICANT CHANGE WAS FOUND Confirmed by BEBETO LI MD ([id number]) on 09/22/2017 8:22:58 AM Referred By: Confirmed By:BEBETO LI MD
[2017-09-22] MEDS: METHADONE 40 MG, METHADONE 10 MG PO SCH (08:42)
[2017-09-22] MEDS ORDERED: METHADONE HCL 10 MG TABLET ONE (09:01)
[2017-09-22] MEDS ORDERED: METHADONE HCL 40 MG DISPERSABLE TABLET ONE (09:02)
--- NOTE | 2017-09-22 09:55 | HP ---
Psychiatrist Admission - Data Date of interview: 09/22/17 Admission source: [facility] Identifying data: [facility] 42 [facility] male who is a single father of 5, he is unemployed without any sourse of income and currently homeless. Medical History: Asthma and HepC, smokes cigarettes 1PPD, on MMTP 50 mg Psychiatric History: Patient reports one psychiatric hospitalization for 3 days at [facility] due to panic attacks and anxiety, reports was on Klonopin and Ambien. He was on different medications( Seroquel, Buspar, Zoloft, Trazodone ) which "I did not like it, only Klonopin helped me". Patient was recommended Gabapentin or restart Buspar but he declined. Physical/Sexual Abuse/Trauma History: Denies history of abuse. Vital Signs: Vital Signs - 24 hr 09/21/17 09/22/17 09/22/17 11:09 00:34 03:30 Temperature 97.2 F L Pulse Rate 83 Respiratory 20 18 18 Rate Blood Pressure 110/76 09/22/17 06:45 Temperature 97.8 F Pulse Rate 75 Respiratory 16 Rate Blood Pressure 153/68 Allergies/Adverse Reactions: Allergies Allergy/AdvReac Type Severity Reaction Status Date / Time No Known Allergies Allergy Verified 09/21/17 13:20 Concur with the findings of this exam: Yes - Substance Abuse/Tx History Hx Alcohol Use: Yes (1 pint of liquor) Hx Substance Use: Yes Substance Use Type: Alcohol, Cocaine ($70 daily injectine), Heroin (5 days daily injecting) Hx Substance Use Treatment: Yes Mental Status Exam - Mental Status Exam Alert and Oriented to: Time, Place, Person Cognitive Function: Grossly Intact Patient Appearance: Well Groomed Mood: Sad, Anxious Affect: Appropriate, Mood Congruent Patient Behavior: Appropriate, Cooperative Speech Pattern: Appropriate Voice Loudness: Normal Thought Process: Intact, Goal Oriented Thought Disorder: Not Present Hallucinations: Denies Suicidal Ideation: Denies Homicidal Ideation: Denies Insight/Judgement: Fair Sleep: Poorly, Difficulty falling asleep Appetite: Fair Muscle strength/Tone: Normal Gait/Station: Normal Psychiatric Findings - Problem List ([place] 1, 2,3) (1) Cocaine dependence Current Visit: Yes Status: Acute (2) Opioid dependence Current Visit: Yes Status: Acute (3) Nicotine dependence Current Visit: Yes Status: Acute Qualifiers: Nicotine product type: cigarettes Substance use status: in withdrawal Qualified Code(s): F17.213 - Nicotine dependence, cigarettes, with withdrawal (4) Alcohol induced sleep disorders Current Visit: No Status: Acute (5) Alcohol-induced mood disorder Current Visit: No Status: Acute - Initial Treatment Plan Initial Treatment Plan: Indications/properties of Belsomra discussed with the patient, patient agreed to start med, monitor progress as needed.
[2017-09-22 10:11] LABS: HEMATOCRIT 41.1 % (35.4-49); HEMOGLOBIN 13.4 GM/dL (11.7-16.9); MCH 28.6 pg (25.7-33.7); MCHC 32.6 g/dl (32.0-35.9); MEAN CELL VOLUME 87.8 fl (80-96); MEAN PLT VOLUME 8.1 fl (7.5-11.1); PLATELET COUNT 356 K/MM3 (134-434); RBC 4.68 M/mm3 (4.00-5.60); RDW 14.2 % (11.9-15.9); WHITE BLOOD COUNT 9.6 K/mm3 (4.0-10.0)
[2017-09-22 10:16] LABS: CHLORIDE 99 mmol/L (98-107); POTASSIUM 5.2 mmol/L (3.5-5.1); SODIUM 138 mmol/L (136-145)
[2017-09-22 10:28] LABS: ALBUMIN 3.2 g/dl (3.4-5.0); ALK PHOS 88 U/L (45-117); ANION GAP 9 (8-16); BILIRUBIN,TOTAL 0.5 mg/dL (0.2-1.0); BLOOD UREA NITROGEN 20 mg/dL (7-18); CALCIUM 8.9 mg/dL (8.5-10.1); CO2 30 mmol/L (21-32); CREATININE 0.9 mg/dL (0.7-1.3); GLUCOSE,RANDOM 126 mg/dL (74-106); SGOT/AST 39 U/L (15-37); SGPT/ALT 56 U/L (12-78); TOT PROT 7.8 g/dl (6.4-8.2)
[2017-09-22] MEDS: NICOTINE 21 MG/24 HOURS TOPICAL PATCH TD SCH (10:42)
[2017-09-22] MEDS: PRENATAL VITAMINS W/ FOLIC ACID TABLET (FP) PO SCH (10:42)
[2017-09-22] MEDS: MELATONIN 5 MG TABLETS PO SCH (21:02)
[2017-09-22] MEDS: THIAMINE HCL 100 MG TABLET (FP) PO SCH (21:02)
[2017-09-22] MEDS: SUVOREXANT 10 MG TABLET PO SCH (21:02)
[2017-09-23] MEDS ORDERED: METHADONE HCL 40 MG DISPERSABLE TABLET ONE (03:23)
[2017-09-23] MEDS ORDERED: METHADONE HCL 10 MG TABLET ONE (03:23)
[2017-09-23] MEDS: METHADONE 40 MG, METHADONE 10 MG PO SCH (06:39)
[2017-09-23] MEDS: NICOTINE 21 MG/24 HOURS TOPICAL PATCH TD SCH (10:07)
[2017-09-23] MEDS: PRENATAL VITAMINS W/ FOLIC ACID TABLET (FP) PO SCH (10:07)
[2017-09-23] MEDS: SUVOREXANT 10 MG TABLET PO SCH (21:04)
[2017-09-23] MEDS: MELATONIN 5 MG TABLETS PO SCH (21:04)
[2017-09-23] MEDS: THIAMINE HCL 100 MG TABLET (FP) PO SCH (21:04)
[2017-09-24] MEDS ORDERED: METHADONE HCL 40 MG DISPERSABLE TABLET ONE (04:57)
[2017-09-24] MEDS ORDERED: METHADONE HCL 10 MG TABLET ONE (04:57)
[2017-09-24] MEDS: METHADONE 40 MG, METHADONE 10 MG PO SCH (06:29)
[2017-09-24] MEDS: NICOTINE 21 MG/24 HOURS TOPICAL PATCH TD SCH (09:44)
[2017-09-24] MEDS: PRENATAL VITAMINS W/ FOLIC ACID TABLET (FP) PO SCH (09:45)
[2017-09-24] MEDS: SUVOREXANT 10 MG TABLET PO SCH (21:06)
[2017-09-24] MEDS: THIAMINE HCL 100 MG TABLET (FP) PO SCH (21:06)
[2017-09-24] MEDS: MELATONIN 5 MG TABLETS PO SCH (21:06)
[2017-09-25] MEDS ORDERED: METHADONE HCL 10 MG TABLET ONE (05:02)
[2017-09-25] MEDS ORDERED: METHADONE HCL 40 MG DISPERSABLE TABLET ONE (05:02)
[2017-09-25] MEDS: METHADONE 40 MG, METHADONE 10 MG PO SCH (06:26)
[2017-09-25 07:01] VITALS: BP 108/60; PULSE 57; TEMP 98.2
[2017-09-25] MEDS: NICOTINE 21 MG/24 HOURS TOPICAL PATCH TD SCH (10:40)
[2017-09-25] MEDS: PRENATAL VITAMINS W/ FOLIC ACID TABLET (FP) PO SCH (10:40)
--- NOTE | 2017-09-25 17:22 | PN ---
[facility] Progress Note Note: Psychiatric nurse practitioner transitions manager rn note: Called received by FLOYD Islas stating patient is leaving AMA due to needing to take care of "family issues." As per FLOYD Islas patient denies suicidal and homicidal ideation.
== END 2017-09-25 05:38 | disposition left against medical advice (07) | DRG 770 ==
LOC: YASAS 09:09 → Y5N 13:58
PROVIDERS: ADMIT Psychiatry & Neurology Psychiatry; ATTEND Psychiatry & Neurology Psychiatry
PROC: HZ2ZZZZ Detoxification Services for Substance Abuse Treatment (ICD-10-PCS; principal; 2017-09-21)
DX: F11.20 Opioid dependence, uncomplicated (principal); F14.20 Cocaine dependence, uncomplicated; F17.213 Nicotine dependence, cigarettes, with withdrawal; F10.282 Alcohol dependence with alcohol-induced sleep disorder; F10.24 Alcohol dependence with alcohol-induced mood disorder; B18.2 Chronic viral hepatitis C; J45.22 Mild intermittent asthma with status asthmaticus; R63.4 Abnormal weight loss; Z68.23 Body mass index [BMI] 23.0-23.9, adult
CPT/HCPCS: 36415; 80053; 81003; 85027; 86593; 87389; 93005; 93010

== ENCOUNTER 2017-10-23 10:41 | Inpatient (IN) | payer OTHER ==
[2017-10-23 11:01] VITALS: BMI 23.3
--- NOTE | 2017-10-23 14:03 | HP ---
CIWA Score - CIWA Score Nausea/Vomitin Muscle Tremors: 3 Anxiety: 3 Agitation: 2 Paroxysmal Sweats: 3 Orientation: 0-Oriented Tacttile Disturbances: 0-None Auditory Disturbances: 0-None Visual Disturbances: 0-None Headache: 0-None Present CIWA-Ar Total Score: 17 Admission ROS BHS - HPI Chief Complaint: " I want detox" Allergies/Adverse Reactions: Allergies Allergy/AdvReac Type Severity Reaction Status Date / Time No Known Allergies Allergy Verified 10/23/17 13:17 History of Present Illness: 42 year old male with a [age] year old history of alcohol intoxication presents here today for detox. Last here last month for detox and rehab. Last drink was yesterday, with no significant sober period. Pt is on a methadone program (50mg) but stil uses heroin daily. Educated on the need to stop as this can get him kicked out of his methadone program. Explained to pt that he will only be detoxed from alcohol at this center because he is on the methadone program; he verbalized understanding Hx of asthma,(albuterol) and panic attack (Klonopin). Denies current SI Exam Limitations: Other (very sleepy) - Ebola screening Have you traveled outside of the country in the last 21 days: No Have you had contact with anyone from an Ebola affected area: No Have you been sick,other than usual withdrawal symptoms: No Do you have a fever: No - Review of Systems Constitutional: Unintentional Wgt. Loss EENT: reports: Nose Congestion Respiratory: reports: No Symptoms reported Cardiac: reports: No Symptoms Reported GI: reports: No Symptoms Reported : reports: No Symptoms Reported Musculoskeletal: reports: Back Pain Integumentary: reports: No Symptoms Reported Neuro: reports: No Symptoms reported Endocrine: reports: No Symptoms Reported Hematology: reports: Anemia Psychiatric: reports: Orientated x3, Anxious Other Systems: Reviewed and Negative Patient History - Patient Medical History Hx Anemia: No Hx Asthma: Yes (On albuterol) Hx Chronic Obstructive Pulmonary Disease (COPD): No Hx Cancer: No Hx Cardiac Disorders: No Hx Congestive Heart Failure: No Hx Hypertension: No Hx Hypercholesterolemia: No Hx Pacemaker: No HX Cerebrovascular Accident: No Hx Seizures: No Hx Dementia: No Hx Diabetes: No Hx Gastrointestinal Disorders: No Hx Liver Disease: No Hx Genitourinary Disorders: No Hx Sexually Transmitted Disorders: No Hx Renal Disease (ESRD): No Hx Thyroid Disease: No Hx Human Immunodeficiency Virus (HIV): No (denies) Hx Hepatitis C: Yes (undetecable) Hx Depression: No Hx Suicide Attempt: No (Denies current SI) Hx Bipolar Disorder: Yes Hx Schizophrenia: No - Patient Surgical History Past Surgical History: Yes Hx Neurologic Surgery: No Hx Cataract Extraction: No Hx Cardiac Surgery: No Hx Lung Surgery: No Hx Breast Surgery: No Hx Breast Biopsy: No Hx Abdominal Surgery: Yes (appendectomy) Hx Appendectomy: No Hx Cholecystectomy: No Hx Genitourinary Surgery: No Hx Section: No Hx Orthopedic Surgery: No Hx Hysterectomy: No Anesthesia Reaction: No - PPD History Previous Implant?: Yes Documented Results: Negative w/proof Date: 09/23/17 Results: 0 PPD to be Administered?: No - Reproductive History Patient is a Female of Child Bearing Age (11 -55 yrs old): No - Smoking Cessation Smoking history: Current every day smoker Have you smoked in the past 12 months: Yes Aproximately how many cigarettes per day: 20 Cigars Per Day: 0 Hx Chewing Tobacco Use: No Initiated information on smoking cessation: Yes 'Breaking Loose' booklet given: 10/23/17 - Substance & Tx. History Hx Alcohol Use: Yes Hx Substance Use: Yes Substance Use Type: Cocaine, Heroin, Marijuana Hx Substance Use Treatment: Yes - Substances Abused Alcohol Route: Oral Frequency: Daily Amount used: LIQUOR - 2 PINTS, BEER- 3 SIX PACK Age of first use: 20 Date of Last Use: 10/22/17 Heroin Route: Injection Frequency: Daily Amount used: 10 BAGS Age of first use: 17 Date of Last Use: 10/22/17 Marijuana/Hashish Route: Smoking Frequency: 3-6 times per week Amount used: 5 bags Age of first use: 39 Date of Last Use: 10/21/17 Family Disease History - Family Disease History Family Disease History: [place]: Father (alcohol, ), Other: Father Admission Physical Exam BHS - Vital Signs Vital Signs: Vital Signs - 24 hr 10/23/17 10:58 Temperature 97.1 F L Pulse Rate 73 Respiratory 18 Rate Blood Pressure 121/70 - Physical General Appearance: Yes: Mild Distress HEENTM: Yes: Nasal Congestion Respiratory: Yes: Lungs Clear, No Respiratory Distress Neck: Yes: Within Normal Limits, Trachea in good position Breast: Yes: Breast Exam Deferred Cardiology: Yes: Regular Rhythm Abdominal: Yes: Normal Bowel Sounds, Non Tender, Soft Genitourinary: Yes: Within Normal Limits Back: Yes: Normal Inspection Musculoskeletal: Yes: full range of Motion, Gait Steady Extremities: Yes: Normal Capillary Refill, Normal Range of Motion Neurological: Yes: Within Normal Limits, Motor Strength 5/5 Integumentary: Yes: Track Lewis (Both arms) Lymphatic: Yes: Within Normal Limits - Diagnostic (1) Alcohol dependence with uncomplicated withdrawal Current Visit: No Status: Acute (2) Nicotine dependence Current Visit: No Status: Acute Qualifiers: Nicotine product type: cigarettes Substance use status: in withdrawal Qualified Code(s): F17.213 - Nicotine dependence, cigarettes, with withdrawal (3) Cannabis dependence, uncomplicated Current Visit: No Status: Acute (4) Cocaine dependence, uncomplicated Current Visit: No Status: Chronic (5) Opioid dependence on agonist therapy Current Visit: No Status: Chronic (6) History of hepatitis C Current Visit: Yes Status: Resolved (7) Track lewis due to intravenous drug abuse Current Visit: Yes Status: Acute (8) Drug-induced mood disorder Current Visit: No Status: Suspected (9) Weight loss Current Visit: No Status: Chronic (10) Asthma Current Visit: No Status: Chronic Qualifiers: Asthma severity: mild Asthma persistence: intermittent Asthma complication type: with status asthmaticus Qualified Code(s): J45.22 - Mild intermittent asthma with status asthmaticus (11) Uncomplicated opioid abuse Current Visit: Yes Status: Chronic Cleared for Admission S - Detox or Rehab [facility] Level of Care: Medically Managed Detox Regimen/Protocol: Librium [facility] Breath Alcohol Content Breath Alcohol Content: 0 Urine Drug Screen - Results Drug Screen Negative: No Urine Drug Screen Results: THC-Marijuana, ANDRE-Cocaine, OPI-Opiates, MTD- Methadone
[2017-10-23] MEDS ORDERED: MENTHOL/PHENOL 1 EACH UD MM PRN (14:39)
[2017-10-23] MEDS ORDERED: MAGNESIUM CITRATE 300 ML BOTTLE PO PRN (14:39)
[2017-10-23] MEDS ORDERED: LOPERAMIDE HCL 2 MG CAPSULE PO PRN (14:39)
[2017-10-23] MEDS ORDERED: NICOTINE POLACRILEX 2 MG GUM BC PRN (14:39)
[2017-10-23] MEDS ORDERED: guaiFENesin/D-METHORPHAN HB 10 ML UNIT-DOSE CUPS PO PRN (14:39)
[2017-10-23] MEDS ORDERED: chlordiazePOXIDE HCL 25 MG CAPSULE PO ONE (14:39)
[2017-10-23] MEDS ORDERED: chlordiazePOXIDE HCL 25 MG CAPSULE PO PRN (14:39)
[2017-10-23] MEDS ORDERED: hydrOXYzine PAMOATE 50 MG CAPSULE (FP) PO PRN (14:39)
[2017-10-23] MEDS ORDERED: ACETAMINOPHEN 325 MG TABLET (FP) PO PRN (14:39)
[2017-10-23] MEDS ORDERED: MAGNESIUM HYDROX 2400MG/30ML ORAL SUSPENSION 30 ML CUP PO PRN (14:39)
[2017-10-23] MEDS ORDERED: MAG HYDROX/AL HYDROX/SIMETH 30 ML UNIT-DOSE CUP PO PRN (14:39)
[2017-10-23] MEDS ORDERED: P-EPHED 60MG/TRIPROLIDI 2.5MG TABLET PO PRN (14:39)
[2017-10-23] MEDS ORDERED: IBUPROFEN 400 MG TABLET (FP) PO PRN (14:39)
[2017-10-23] MEDS ORDERED: ALBUTEROL SO4 18 GM HFA INHALER IH PRN (14:48)
[2017-10-23] MEDS: NICOTINE 21 MG/24 HOURS TOPICAL PATCH TD SCH (15:10)
[2017-10-23] MEDS: chlordiazePOXIDE HCL 25 MG CAPSULE PO SCH ×2 (18:02→22:31)
[2017-10-23 19:25] LABS: URINE APPEARANCE TURBID; URINE BILIRUBIN NEGATIVE (<2.0 mg/dL); URINE BLOOD NEGATIVE (NEGATIVE); URINE COLOR YELLOW; URINE GLUCOSE (UA) NEGATIVE (NEGATIVE); URINE KETONE NEGATIVE (NEGATIVE); URINE LEUK ESTERASE NEGATIVE (NEGATIVE); URINE NITRITE NEGATIVE (NEGATIVE)
[2017-10-23 19:40] LABS: URINE PROTEIN 1+ (NEGATIVE)
[2017-10-23 19:47] LABS: CALCIUM OXALATE CRYSTALS RARE /hpf (NONE SEEN); URINE BACTERIA RARE /hpf (NONE SEEN); URINE MUCUS MANY; YEAST MANY
[2017-10-23] MEDS ORDERED: MELATONIN 5 MG TABLETS PO PRN (22:00)
[2017-10-23] MEDS: BACITRACIN 15 GM TUBE TOPICAL OINTMENT TP SCH (22:31)
[2017-10-23] MEDS: THIAMINE HCL 100 MG TABLET (FP) PO SCH (22:31)
[2017-10-24] MEDS: chlordiazePOXIDE HCL 25 MG CAPSULE PO SCH ×4 (05:40→22:36)
[2017-10-24] MEDS ORDERED: BACITRACIN 0.9 GM PACKET ONE (08:59)
--- NOTE | 2017-10-24 09:22 | PN ---
S CIWA - CIWA Score Nausea/Vomitin Muscle Tremors: 3 Anxiety: 3 Agitation: 3 Paroxysmal Sweats: 1-Minimal Palms Moist Orientation: 0-Oriented Tacttile Disturbances: 1-Very Mild Itch/Numbness Auditory Disturbances: 1-Very Mild Visual Disturbances: 0-None Headache: 1-Very Mild CIWA-Ar Total Score: 16 BHS Progress Note (SOAP) Subjective: ALERT,IRRITABLE,ANXIOUS,INTERRUPTED SLEEP,TREMOR,PAIN IN THE BODY AND BACK Objective: 10/24/17 09:19 Vital Signs Temperature 98.1 F 10/24/17 05:00 Pulse Rate 59 L 10/24/17 05:00 Respiratory Rate 18 10/24/17 05:00 Blood Pressure 118/59 10/24/17 05:00 O2 Sat by Pulse Oximetry (%) 10/24/17 09:20 EKG USUAL P WAVE NO CHEST PAIN,NO SOB,NO DIZZINESS Laboratory Last Values Urine Color Yellow 10/23/17 15:54 Urine Appearance Turbid 10/23/17 15:54 Urine pH 5.0 (5.0-8.0) D 10/23/17 15:54 Ur Specific [place] 1.031 (1.001-1.035) 10/23/17 15:54 Urine Protein 1+ (NEGATIVE) H 10/23/17 15:54 Urine Glucose (UA) Negative (NEGATIVE) 10/23/17 15:54 Urine Ketones Negative (NEGATIVE) 10/23/17 15:54 Urine Blood Negative (NEGATIVE) 10/23/17 15:54 Urine Nitrite Negative (NEGATIVE) 10/23/17 15:54 Urine Bilirubin Negative (<2.0 mg/dL) 10/23/17 15:54 Urine Urobilinogen 2.0 mg/dL (0.2-1.0) 10/23/17 15:54 Ur Leukocyte Esterase Negative (NEGATIVE) 10/23/17 15:54 Urine WBC (Auto) 29 /hpf (3-5) 10/23/17 15:54 Urine RBC (Auto) 9 /hpf (0-3) 10/23/17 15:54 Calcium Oxalate Crystal Rare /hpf (NONE SEEN) 10/23/17 15:54 Urine Bacteria Rare /hpf (NONE SEEN) 10/23/17 15:54 Urine Mucus Many 10/23/17 15:54 Urine Yeast Many 10/23/17 15:54 LAB PENDING Assessment: 10/24/17 09:21 WITHDRAWAL SYMPTOM Plan: CONTINUE DETOX,REPEAT UA,ENCOURAGE ORAL FLUID
[2017-10-24] MEDS ORDERED: METHADONE HCL 10 MG TABLET PO ONE (09:45)
[2017-10-24] MEDS: PRENATAL VITAMINS W/ FOLIC ACID TABLET (FP) PO SCH (10:37)
[2017-10-24] MEDS: BACITRACIN 15 GM TUBE TOPICAL OINTMENT TP SCH ×2 (10:38→22:36)
[2017-10-24] MEDS: NICOTINE 21 MG/24 HOURS TOPICAL PATCH TD SCH (10:39)
--- NOTE | 2017-10-24 10:45 | CONSULT ---
[facility] Psychiatric Consult - Data Date of interview: 10/24/17 Admission source: [facility] Identifying data: Gricel is 42 year old male , , father of Five, unemp[ loyed, homeless, on PA, chronic Alcoholic, seeking for detoxifications after abusing: Alcohol, Heroin, Cannabuis and Nicotine. Currently on MMTP 50MG PER DAY. Substance Abuse History: - Smoking Cessation. Smoking history: Current every day smoker. Have you smoked in the past 12 months: Yes. Aproximately how many cigarettes per day: 20. Cigars Per Day: 0. Hx Chewing Tobacco Use: No. Initiated information on smoking cessation: Yes. 'Breaking Loose' booklet given : 10/23/17. - Substance & Tx. History. Hx Alcohol Use: Yes. Hx Substance Use : Yes. Substance Use Type: Cocaine, Heroin, Marijuana. Hx Substance Use Treatment: Yes. - Substances Abused. Alcohol. Route: Oral. Frequency: Daily. Amount used: LIQUOR - 2 PINTS, BEER- 3 SIX PACK. Age of first use: 20. Date of Last Use: 10/22/17. Heroin. Route: Injection. Frequency: Daily. Amount used: 10 BAGS. Age of first use: 17. Date of Last Use: 10/22/17. Marijuana/Hashish. Route: Smoking. Frequency: 3-6 times per week. Amount used : 5 bags. Age of first use: 39. Date of Last Use: 10/21/17 Medical History: HepC+, Weight loss, Asthma Psychiatric History: Patient reports no past psychiatric history Physical/Sexual Abuse/Trauma History: Denies Additional Comment: Observation. Detox Unit Care Protocol Mental Status Exam - Mental Status Exam Alert and Oriented to: Person Cognitive Function: Fair Patient Appearance: Unkempt Mood: Sad Affect: Flat Patient Behavior: Sedated Speech Pattern: Delayed Voice Loudness: Mildly Soft/Quiet Thought Process: Circumstantial Thought Disorder: Being Controlled Hallucinations: Denies Suicidal Ideation: Denies Homicidal Ideation: Denies Insight/Judgement: Fair Sleep: Difficulty falling asleep Appetite: Weight loss Muscle strength/Tone: Mild Hypotonicity Gait/Station: Shuffling Additional Comments: Observation. Detox Unit Care Protocol Psychiatric Findings - Problem List ([place] 1, 2,3) (1) Alcohol dependence with uncomplicated withdrawal Current Visit: No Status: Acute (2) Alcohol induced sleep disorders Current Visit: No Status: Acute (3) Alcohol-induced mood disorder Current Visit: No Status: Acute (4) Cannabis dependence, uncomplicated Current Visit: No Status: Acute (5) Cocaine dependence Current Visit: No Status: Acute (6) Nicotine dependence Current Visit: No Status: Acute Qualifiers: Nicotine product type: cigarettes Substance use status: in withdrawal Qualified Code(s): F17.213 - Nicotine dependence, cigarettes, with withdrawal (7) Opioid dependence Current Visit: No Status: Acute (8) Opioid dependence with withdrawal Current Visit: No Status: Acute (9) Substance induced mood disorder Current Visit: No Status: Acute (10) Substance-induced sleep disorder Current Visit: No Status: Acute (11) Cocaine dependence, uncomplicated Current Visit: No Status: Chronic (12) Drug-induced mood disorder Current Visit: No Status: Suspected - Initial Treatment Plan Initial Treatment Plan: Observation. Detox Unit Care Protocol
[2017-10-24 10:46] LABS: HEMATOCRIT 38.7 % (35.4-49); HEMOGLOBIN 12.6 GM/dL (11.7-16.9); MCH 28.5 pg (25.7-33.7); MCHC 32.6 g/dl (32.0-35.9); MEAN CELL VOLUME 87.3 fl (80-96); MEAN PLT VOLUME 8.4 fl (7.5-11.1); PLATELET COUNT 255 K/MM3 (134-434); RBC 4.44 M/mm3 (4.00-5.60); RDW 14.5 % (11.9-15.9); WHITE BLOOD COUNT 8.8 K/mm3 (4.0-10.0)
[2017-10-24 10:51] LABS: CHLORIDE 108 mmol/L (98-107); SODIUM 140 mmol/L (136-145)
[2017-10-24 11:04] LABS: ALBUMIN 3.1 g/dl (3.4-5.0); ALK PHOS 78 U/L (45-117); ANION GAP 6 (8-16); BILIRUBIN,TOTAL 0.3 mg/dL (0.2-1.0); BLOOD UREA NITROGEN 20 mg/dL (7-18); CALCIUM 8.2 mg/dL (8.5-10.1); CO2 26 mmol/L (21-32); CREATININE 0.8 mg/dL (0.7-1.3); GLUCOSE,RANDOM 88 mg/dL (74-106); SGOT/AST 27 U/L (15-37); SGPT/ALT 31 U/L (12-78); TOT PROT 6.8 g/dl (6.4-8.2)
--- NOTE | 2017-10-24 15:09 | EKG ---
Test Reason : Blood Pressure : / mmHG Vent. Rate : 072 BPM Atrial Rate : 072 BPM P-R Int : 124 ms QRS Dur : 086 ms QT Int : 386 ms P-R-T Axes : -46 105 062 degrees QTc Int : 422 ms UNUSUAL P AXIS, POSSIBLE ECTOPIC ATRIAL RHYTHM RIGHTWARD AXIS ABNORMAL ECG WHEN COMPARED WITH ECG OF 21-SEP-2017 21:57, ECTOPIC ATRIAL RHYTHM HAS REPLACED SINUS RHYTHM Confirmed by QUAN LANG, ELAN ([id number]) on 10/24/2017 3:08:56 PM Referred By: Dale Gomez Confirmed By:ELAN GLASS MD
[2017-10-24] MEDS: THIAMINE HCL 100 MG TABLET (FP) PO SCH (22:36)
[2017-10-25] MEDS: chlordiazePOXIDE HCL 25 MG CAPSULE PO SCH ×2 (05:20→10:06)
[2017-10-25] MEDS ORDERED: METHADONE HCL 40 MG DISPERSABLE TABLET PO ONE (06:00)
[2017-10-25] MEDS ORDERED: METHADONE HCL 10 MG TABLET PO SCH (06:00)
--- NOTE | 2017-10-25 08:58 | PN ---
S CIWA - CIWA Score Nausea/Vomitin Muscle Tremors: 3 Anxiety: 3 Agitation: 2 Paroxysmal Sweats: 1-Minimal Palms Moist Orientation: 0-Oriented Tacttile Disturbances: 1-Very Mild Itch/Numbness Auditory Disturbances: 1-Very Mild Visual Disturbances: 0-None Headache: 2-Mild CIWA-Ar Total Score: 16 BHS Progress Note (SOAP) Subjective: ALERT,IRRITABLE,ANXIOUS,INTERRUPTED SLEEP,ACHING PAIN Objective: 10/25/17 08:56 Vital Signs Temperature 98.1 F 10/25/17 06:24 Pulse Rate 56 L 10/25/17 06:24 Respiratory Rate 16 10/25/17 06:24 Blood Pressure 142/94 10/24/17 22:13 O2 Sat by Pulse Oximetry (%) Assessment: 10/25/17 08:56 Laboratory Last Values WBC 8.8 K/mm3 (4.0-10.0) 10/24/17 07:00 RBC 4.44 M/mm3 (4.00-5.60) 10/24/17 07:00 Hgb 12.6 GM/dL (11.7-16.9) 10/24/17 07:00 Hct 38.7 % (35.4-49) 10/24/17 07:00 MCV 87.3 fl (80-96) 10/24/17 07:00 MCH 28.5 pg (25.7-33.7) 10/24/17 07:00 MCHC 32.6 g/dl (32.0-35.9) 10/24/17 07:00 RDW 14.5 % (11.9-15.9) 10/24/17 07:00 Plt Count 255 K/MM3 (134-434) D 10/24/17 07:00 MPV 8.4 fl (7.5-11.1) 10/24/17 07:00 Sodium 140 mmol/L (136-145) 10/24/17 07:00 Potassium 4.0 mmol/L (3.5-5.1) D 10/24/17 07:00 Chloride 108 mmol/L (98-107) H 10/24/17 07:00 Carbon Dioxide 26 mmol/L (21-32) 10/24/17 07:00 Anion Gap 6 (8-16) L 10/24/17 07:00 BUN 20 mg/dL (7-18) H 10/24/17 07:00 Creatinine 0.8 mg/dL (0.7-1.3) 10/24/17 07:00 Creat Clearance w eGFR > 60 (>60) 10/24/17 07:00 Random Glucose 88 mg/dL (74-106) D 10/24/17 07:00 Calcium 8.2 mg/dL (8.5-10.1) L 10/24/17 07:00 Total Bilirubin 0.3 mg/dL (0.2-1.0) D 10/24/17 07:00 AST 27 U/L (15-37) D 10/24/17 07:00 ALT 31 U/L (12-78) D 10/24/17 07:00 Alkaline Phosphatase 78 U/L (45-117) 10/24/17 07:00 Total Protein 6.8 g/dl (6.4-8.2) 10/24/17 07:00 Albumin 3.1 g/dl (3.4-5.0) L 10/24/17 07:00 Urine Color Yellow 10/23/17 15:54 Urine Appearance Turbid 10/23/17 15:54 Urine pH 5.0 (5.0-8.0) D 10/23/17 15:54 Ur Specific [place] 1.031 (1.001-1.035) 10/23/17 15:54 Urine Protein 1+ (NEGATIVE) H 10/23/17 15:54 Urine Glucose (UA) Negative (NEGATIVE) 10/23/17 15:54 Urine Ketones Negative (NEGATIVE) 10/23/17 15:54 Urine Blood Negative (NEGATIVE) 10/23/17 15:54 Urine Nitrite Negative (NEGATIVE) 10/23/17 15:54 Urine Bilirubin Negative (<2.0 mg/dL) 10/23/17 15:54 Urine Urobilinogen 2.0 mg/dL (0.2-1.0) 10/23/17 15:54 Ur Leukocyte Esterase Negative (NEGATIVE) 10/23/17 15:54 Urine WBC (Auto) 29 /hpf (3-5) 10/23/17 15:54 Urine RBC (Auto) 9 /hpf (0-3) 10/23/17 15:54 Calcium Oxalate Crystal Rare /hpf (NONE SEEN) 10/23/17 15:54 Urine Bacteria Rare /hpf (NONE SEEN) 10/23/17 15:54 Urine Mucus Many 10/23/17 15:54 Urine Yeast Many 10/23/17 15:54 RPR Titer Nonreactive (NONREACTIVE) 10/24/17 07:00 HIV 1&2 Antibody Screen Negative 10/24/17 07:00 HIV P24 Antigen Negative 10/24/17 07:00 Plan: WITHDRAWAL SYMPTOM.ENCOURAGE ORAL FLUID,REPEAT UA
[2017-10-25] MEDS: PRENATAL VITAMINS W/ FOLIC ACID TABLET (FP) PO SCH (09:09)
[2017-10-25] MEDS: BACITRACIN 15 GM TUBE TOPICAL OINTMENT TP SCH ×2 (09:11→22:06)
[2017-10-25] MEDS: NICOTINE 21 MG/24 HOURS TOPICAL PATCH TD SCH (09:12)
[2017-10-25] MEDS: chlordiazePOXIDE 5 MG CAPSULE PO SCH ×2 (17:35→22:06)
[2017-10-25] MEDS: THIAMINE HCL 100 MG TABLET (FP) PO SCH (22:07)
[2017-10-26] MEDS ORDERED: METHADONE HCL 40 MG DISPERSABLE TABLET ONE (04:50)
[2017-10-26] MEDS ORDERED: METHADONE HCL 10 MG TABLET ONE (04:50)
[2017-10-26] MEDS ORDERED: METHADONE 40 MG, METHADONE 10 MG PO SCH (06:00)
[2017-10-26] MEDS ORDERED: METHADONE HCL 10 MG TABLET PO SCH (06:00)
[2017-10-26] MEDS: chlordiazePOXIDE 5 MG CAPSULE PO SCH ×2 (06:53→10:29)
[2017-10-26 10:16] VITALS: BP 98/62; PULSE 91; TEMP 98.2
[2017-10-26] MEDS: PRENATAL VITAMINS W/ FOLIC ACID TABLET (FP) PO SCH (10:29)
[2017-10-26] MEDS: NICOTINE 21 MG/24 HOURS TOPICAL PATCH TD SCH (10:29)
[2017-10-26] MEDS: BACITRACIN 15 GM TUBE TOPICAL OINTMENT TP SCH (10:31)
--- NOTE | 2017-10-26 10:47 | PN ---
BHS Progress Note (SOAP) Subjective: ALERT,NO COMPLAINT Objective: 10/26/17 10:42 Vital Signs Temperature 98.2 F 10/26/17 10:15 Pulse Rate 91 H 10/26/17 10:15 Respiratory Rate 20 10/26/17 10:15 Blood Pressure 98/62 10/26/17 10:15 O2 Sat by Pulse Oximetry (%) Assessment: 10/26/17 10:42 PATIENT IS STABLE FOR DISCHARGE TODAY,HAS NO URINARY SYMPTOM,STATED HE HAS A FLIGHT TO [place] TODAY IN THE AFTERNOON Plan: DISCHARGE TODAY,FOLLOW UP WITH AFTER CARE PROGRAM ARRANGEMENT
--- NOTE | 2017-10-26 10:52 | DS ---
[facility] Detox Discharge Summary Admission Date: 10/23/17 Discharge Date: 10/26/17 - History Present History: Alcohol Dependence, Cannabis Dependence, Cocaine Dependence, MMTP Additional Comments: FOLLOW UP WITH AFTER CARE PROGRAM ARRANGEMENT Pertinent Past History: ASTHMA HEPATITIS C WEIGHT LOSS - Physical Exam Results Vital Signs: Vital Signs Temperature 98.2 F 10/26/17 10:15 Pulse Rate 91 H 10/26/17 10:15 Respiratory Rate 20 10/26/17 10:15 Blood Pressure 98/62 10/26/17 10:15 O2 Sat by Pulse Oximetry (%) Pertinent Admission Physical Exam Findings: WITHDRAWAL SIGNS AND SYMPTOM Vital Signs Temperature 98.2 F 10/26/17 10:15 Pulse Rate 91 H 10/26/17 10:15 Respiratory Rate 20 10/26/17 10:15 Blood Pressure 98/62 10/26/17 10:15 O2 Sat by Pulse Oximetry (%) Laboratory Last Values WBC 8.8 K/mm3 (4.0-10.0) 10/24/17 07:00 RBC 4.44 M/mm3 (4.00-5.60) 10/24/17 07:00 Hgb 12.6 GM/dL (11.7-16.9) 10/24/17 07:00 Hct 38.7 % (35.4-49) 10/24/17 07:00 MCV 87.3 fl (80-96) 10/24/17 07:00 MCH 28.5 pg (25.7-33.7) 10/24/17 07:00 MCHC 32.6 g/dl (32.0-35.9) 10/24/17 07:00 RDW 14.5 % (11.9-15.9) 10/24/17 07:00 Plt Count 255 K/MM3 (134-434) D 10/24/17 07:00 MPV 8.4 fl (7.5-11.1) 10/24/17 07:00 Sodium 140 mmol/L (136-145) 10/24/17 07:00 Potassium 4.0 mmol/L (3.5-5.1) D 10/24/17 07:00 Chloride 108 mmol/L (98-107) H 10/24/17 07:00 Carbon Dioxide 26 mmol/L (21-32) 10/24/17 07:00 Anion Gap 6 (8-16) L 10/24/17 07:00 BUN 20 mg/dL (7-18) H 10/24/17 07:00 Creatinine 0.8 mg/dL (0.7-1.3) 10/24/17 07:00 Creat Clearance w eGFR > 60 (>60) 10/24/17 07:00 Random Glucose 88 mg/dL (74-106) D 10/24/17 07:00 Calcium 8.2 mg/dL (8.5-10.1) L 10/24/17 07:00 Total Bilirubin 0.3 mg/dL (0.2-1.0) D 10/24/17 07:00 AST 27 U/L (15-37) D 10/24/17 07:00 ALT 31 U/L (12-78) D 10/24/17 07:00 Alkaline Phosphatase 78 U/L (45-117) 10/24/17 07:00 Total Protein 6.8 g/dl (6.4-8.2) 10/24/17 07:00 Albumin 3.1 g/dl (3.4-5.0) L 10/24/17 07:00 Urine Color Yellow 10/23/17 15:54 Urine Appearance Turbid 10/23/17 15:54 Urine pH 5.0 (5.0-8.0) D 10/23/17 15:54 Ur Specific [place] 1.031 (1.001-1.035) 10/23/17 15:54 Urine Protein 1+ (NEGATIVE) H 10/23/17 15:54 Urine Glucose (UA) Negative (NEGATIVE) 10/23/17 15:54 Urine Ketones Negative (NEGATIVE) 10/23/17 15:54 Urine Blood Negative (NEGATIVE) 10/23/17 15:54 Urine Nitrite Negative (NEGATIVE) 10/23/17 15:54 Urine Bilirubin Negative (<2.0 mg/dL) 10/23/17 15:54 Urine Urobilinogen 2.0 mg/dL (0.2-1.0) 10/23/17 15:54 Ur Leukocyte Esterase Negative (NEGATIVE) 10/23/17 15:54 Urine WBC (Auto) 29 /hpf (3-5) 10/23/17 15:54 Urine RBC (Auto) 9 /hpf (0-3) 10/23/17 15:54 Calcium Oxalate Crystal Rare /hpf (NONE SEEN) 10/23/17 15:54 Urine Bacteria Rare /hpf (NONE SEEN) 10/23/17 15:54 Urine Mucus Many 10/23/17 15:54 Urine Yeast Many 10/23/17 15:54 RPR Titer Nonreactive (NONREACTIVE) 10/24/17 07:00 HIV 1&2 Antibody Screen Negative 10/24/17 07:00 HIV P24 Antigen Negative 10/24/17 07:00 NO URINARY PROBLEM - Treatment Hospital Course: Detox Protocol Followed, Detoxed Safely, Responded well, Discharged Condition Good Patient has Accepted a Rehab Referral to: DECLINED - Medication Discharge Medications: Ambulatory Orders Albuterol Sulfate Inhaler - [Ventolin HFA Inhaler -] 2 inh PO Q4H PRN #1 inhaler 09/07/17 - Diagnosis (1) Alcohol dependence with uncomplicated withdrawal Current Visit: No Status: Acute (2) Track lewis due to intravenous drug abuse Current Visit: Yes Status: Acute (3) Cannabis dependence, uncomplicated Current Visit: No Status: Acute (4) Cocaine dependence Current Visit: No Status: Acute (5) Nicotine dependence Current Visit: No Status: Acute Qualifiers: Nicotine product type: cigarettes Substance use status: in withdrawal Qualified Code(s): F17.213 - Nicotine dependence, cigarettes, with withdrawal (6) Methadone maintenance therapy patient Current Visit: No Status: Chronic (7) Weight loss Current Visit: No Status: Chronic (8) Hepatitis-C Current Visit: No Status: Resolved Qualifiers: Viral hepatitis chronicity: chronic Hepatic coma status: without hepatic coma Qualified Code(s): B18.2 - Chronic viral hepatitis C - AMA Did Patient Leave Against Medical Advice: No
[2017-10-26 15:22] LABS: URINE APPEARANCE SLCLOUDY; URINE BILIRUBIN NEGATIVE (<2.0 mg/dL); URINE BLOOD NEGATIVE (NEGATIVE); URINE COLOR YELLOW; URINE GLUCOSE (UA) NEGATIVE (NEGATIVE); URINE KETONE NEGATIVE (NEGATIVE); URINE LEUK ESTERASE NEGATIVE (NEGATIVE); URINE NITRITE NEGATIVE (NEGATIVE); URINE PROTEIN NEGATIVE (NEGATIVE); URINE UROBILINOGEN 4.0 E.U/dl mg/dL (0.2-1.0)
[2017-10-26] MEDS ORDERED: chlordiazePOXIDE HCL 10 MG CAPSULE PO SCH (17:00)
== END 2017-10-26 11:11 | disposition home or self-care (01) | DRG 773 ==
LOC: YASAS 10:41 → Y6N 13:33
PROVIDERS: ADMIT Internal Medicine; ATTEND Internal Medicine
PROC: HZ2ZZZZ Detoxification Services for Substance Abuse Treatment (ICD-10-PCS; principal; 2017-10-23)
DX: F11.23 Opioid dependence with withdrawal (principal); F10.230 Alcohol dependence with withdrawal, uncomplicated; F14.20 Cocaine dependence, uncomplicated; F12.20 Cannabis dependence, uncomplicated; F10.24 Alcohol dependence with alcohol-induced mood disorder; F10.282 Alcohol dependence with alcohol-induced sleep disorder; F19.24 Other psychoactive substance dependence with psychoactive substance-induced mood disorder; F19.282 Other psychoactive substance dependence with psychoactive substance-induced sleep disorder; J45.909 Unspecified asthma, uncomplicated; B18.2 Chronic viral hepatitis C; R63.4 Abnormal weight loss; Z68.23 Body mass index [BMI] 23.0-23.9, adult
CPT/HCPCS: 36415; 80053; 81003; 81015; 85027; 86593; 87389; 93005; 93010

== ENCOUNTER 2017-11-24 20:03 | Inpatient (IN) | payer OTHER ==
[2017-11-24] MEDS ORDERED: MELATONIN 5 MG TABLETS PO PRN (22:00)
[2017-11-24 22:02] VITALS: BMI 20.7
--- NOTE | 2017-11-24 22:47 | HP ---
COWS - Scale Resting Pulse: 0= [place] 80 or Below Sweatin=Flushed/Facial Moisture Restless Observation: 0= Sits Still Pupil Size: 1= Pupils >than Normal Bone or Joint Aches: 4=Acute Joint/Muscle Pain Runny Nose/ Eye Tearin= None GI Upset > 30mins: 1= Stomach Cramp Tremor Observation: 2= Slight Tremor Visible Yawning Observation: 0= None Anxiety or Irritability: 4=Extreme Anxiety Goose Flesh Skin: 0=Smooth Skin COWS Score: 14 Admission [facility] - [facility] Chief Complaint: Heroin withdrawal symptoms Allergies/Adverse Reactions: Allergies Allergy/AdvReac Type Severity Reaction Status Date / Time No Known Allergies Allergy Verified 10/23/17 13:17 History of Present Illness: 42 years old male with a long history of heroin, cocaine and marijuana dependence is seeking admission to detox. Patient has been in previous detox and reports 3 years of sobriety. He has medical history of Hep. C, asthma, and panic attack. He reports suicide Exam Limitations: No Limitations - Ebola screening Have you traveled outside of the country in the last 21 days: No (N) Have you had contact with anyone from an Ebola affected area: No Have you been sick,other than usual withdrawal symptoms: No Do you have a fever: No - Review of Systems Constitutional: Chills, Loss of Appetite, Changes in sleep EENT: reports: No Symptoms Reported Respiratory: reports: No Symptoms reported Cardiac: reports: No Symptoms Reported GI: reports: Poor Appetite, Poor Fluid Intake, Abdominal cramping : reports: No Symptoms Reported Musculoskeletal: reports: Back Pain, Joint Pain Integumentary: reports: Dryness, Flushing Neuro: reports: Headache, Tingling, Tremors Endocrine: reports: No Symptoms Reported Hematology: reports: No Symptoms Reported Psychiatric: reports: Orientated x3, Anxious, Depressed Other Systems: Reviewed and Negative Patient History - Patient Medical History Hx Anemia: No Hx Asthma: Yes (On albuterol) Hx Chronic Obstructive Pulmonary Disease (COPD): No Hx Cancer: No Hx Cardiac Disorders: No Hx Congestive Heart Failure: No Hx Hypertension: No Hx Hypercholesterolemia: No Hx Pacemaker: No HX Cerebrovascular Accident: No Hx Seizures: No Hx Dementia: No Hx Diabetes: No Hx Gastrointestinal Disorders: No Hx Liver Disease: No Hx Genitourinary Disorders: No Hx Sexually Transmitted Disorders: No Hx Renal Disease (ESRD): No Hx Thyroid Disease: No Hx Human Immunodeficiency Virus (HIV): No (Negative 2017) Hx Hepatitis C: Yes (undetecable- Not on medication) Hx Depression: No Hx Suicide Attempt: No (Denies suicidal ideation at this time) Hx Bipolar Disorder: Yes Hx Schizophrenia: No - Patient Surgical History Past Surgical History: Yes Hx Neurologic Surgery: No Hx Cataract Extraction: No Hx Cardiac Surgery: No Hx Lung Surgery: No Hx Abdominal Surgery: Yes (appendectomy) Hx Appendectomy: No Hx Cholecystectomy: No Hx Genitourinary Surgery: No Hx Section: No Hx Orthopedic Surgery: No Hx Hysterectomy: No Anesthesia Reaction: No - PPD History Previous Implant?: Yes Date: 09/23/17 Results: 0 PPD to be Administered?: No - Reproductive History Patient is a Female of Child Bearing Age (11 -55 yrs old): No (Male) - Smoking Cessation Smoking history: Current every day smoker Have you smoked in the past 12 months: Yes Aproximately how many cigarettes per day: 20 Cigars Per Day: 0 Hx Chewing Tobacco Use: No Initiated information on smoking cessation: Yes 'Breaking Loose' booklet given: 11/24/17 - Substance & Tx. History Hx Alcohol Use: No Hx Substance Use: Yes Substance Use Type: Cocaine, Heroin, Marijuana Hx Substance Use Treatment: Yes ([facility]) - Substances Abused Heroin Route: Injection Frequency: Daily Amount used: 10 bags Age of first use: 20 Date of Last Use: 11/23/17 Cocaine Route: Injection Frequency: Daily Amount used: 5 bags Age of first use: 17 Date of Last Use: 11/23/17 Marijuana/Hashish Route: Smoking Frequency: Daily Amount used: 1 bag Age of first use: 17 Date of Last Use: 11/23/17 Family Disease History - Family Disease History Family Disease History: [place]: Father (alcohol, ), Other: Father Admission Physical Exam [facility] - Vital Signs Vital Signs: Vital Signs - 24 hr 11/24/17 22:00 Temperature 97.2 F L Pulse Rate 73 Respiratory 17 Rate Blood Pressure 118/79 - Physical General Appearance: Yes: Moderate Distress HEENTM: Yes: EOMI, Normal ENT Inspection, Normocephalic, Normal Voice, [place] Respiratory: Yes: Lungs Clear, Normal Breath Sounds, No Respiratory Distress Neck: Yes: Supple Breast: Yes: Breast Exam Deferred Abdominal: Yes: Normal Bowel Sounds, Soft Genitourinary: Yes: Within Normal Limits Back: Yes: Normal Inspection Musculoskeletal: Yes: Back pain, Muscle Pain Extremities: Yes: Tremors Neurological: Yes: Alert, Normal Mood/Affect Integumentary: Yes: Dry Lymphatic: Yes: Within Normal Limits - Diagnostic (1) Cannabis dependence, uncomplicated Current Visit: Yes Status: Chronic (2) Cocaine dependence Current Visit: Yes Status: Chronic Qualifiers: Substance use status: uncomplicated Qualified Code(s): F14.20 - Cocaine dependence, uncomplicated (3) Nicotine dependence Current Visit: Yes Status: Chronic Qualifiers: Nicotine product type: cigarettes Substance use status: in withdrawal Qualified Code(s): F17.213 - Nicotine dependence, cigarettes, with withdrawal (4) Opioid dependence with withdrawal Current Visit: Yes Status: Chronic (5) Asthma Current Visit: Yes Status: Chronic Qualifiers: Asthma severity: mild Asthma persistence: intermittent Asthma complication type: with status asthmaticus Qualified Code(s): J45.22 - Mild intermittent asthma with status asthmaticus (6) Hepatitis-C Current Visit: Yes Status: Chronic Qualifiers: Viral hepatitis chronicity: chronic Hepatic coma status: without hepatic coma Qualified Code(s): B18.2 - Chronic viral hepatitis C Comment: treated x 3 months completed Cleared for Admission [facility] - Detox or Rehab [facility] Level of Care: Medically Managed Detox Regimen/Protocol: Methadone [facility] Breath Alcohol Content Breath Alcohol Content: 0 Urine Drug Screen - Results Drug Screen Negative: No Urine Drug Screen Results: THC-Marijuana, ANDRE-Cocaine, OPI-Opiates
[2017-11-24] MEDS ORDERED: chlordiazePOXIDE HCL 25 MG CAPSULE PO SCH (23:00)
[2017-11-24] MEDS ORDERED: METHADONE HCL 10 MG TABLET (FOR DETOX USE ONLY) PO ONE ×2 (23:00→23:53)
[2017-11-24] MEDS ORDERED: MAGNESIUM HYDROX 2400MG/30ML ORAL SUSPENSION 30 ML CUP PO PRN (23:10)
[2017-11-24] MEDS ORDERED: MAGNESIUM CITRATE 300 ML BOTTLE PO PRN (23:10)
[2017-11-24] MEDS ORDERED: IBUPROFEN 400 MG TABLET (FP) PO PRN (23:10)
[2017-11-24] MEDS ORDERED: chlordiazePOXIDE HCL 25 MG CAPSULE PO PRN (23:10)
[2017-11-24] MEDS ORDERED: guaiFENesin/D-METHORPHAN HB 10 ML UNIT-DOSE CUPS PO PRN (23:10)
[2017-11-24] MEDS ORDERED: MAG HYDROX/AL HYDROX/SIMETH 30 ML UNIT-DOSE CUP PO PRN (23:10)
[2017-11-24] MEDS ORDERED: ACETAMINOPHEN 325 MG TABLET (FP) PO PRN (23:10)
[2017-11-24] MEDS ORDERED: NICOTINE POLACRILEX 2 MG GUM BC PRN (23:10)
[2017-11-24] MEDS ORDERED: MENTHOL/PHENOL 1 EACH UD MM PRN (23:10)
[2017-11-24] MEDS ORDERED: P-EPHED 60MG/TRIPROLIDI 2.5MG TABLET PO PRN (23:10)
[2017-11-24] MEDS ORDERED: LOPERAMIDE HCL 2 MG CAPSULE PO PRN (23:10)
[2017-11-24] MEDS ORDERED: ALBUTEROL SO4 18 GM HFA INHALER IH PRN (23:13)
--- NOTE | 2017-11-24 23:18 | HP ---
COWS - Scale Resting Pulse: 0= [place] 80 or Below Sweatin=Flushed/Facial Moisture Restless Observation: 0= Sits Still Pupil Size: 1= Pupils >than Normal Bone or Joint Aches: 4=Acute Joint/Muscle Pain Runny Nose/ Eye Tearin= None GI Upset > 30mins: 1= Stomach Cramp Tremor Observation: 2= Slight Tremor Visible Yawning Observation: 0= None Anxiety or Irritability: 4=Extreme Anxiety Goose Flesh Skin: 0=Smooth Skin COWS Score: 14 Admission ROS S - HPI Allergies/Adverse Reactions: Allergies Allergy/AdvReac Type Severity Reaction Status Date / Time No Known Allergies Allergy Verified 10/23/17 13:17 - Ebola screening Have you traveled outside of the country in the last 21 days: No (N) Have you had contact with anyone from an Ebola affected area: No Have you been sick,other than usual withdrawal symptoms: No Do you have a fever: No Patient History - Patient Medical History Hx Anemia: No Hx Asthma: Yes (On albuterol) Hx Chronic Obstructive Pulmonary Disease (COPD): No Hx Cancer: No Hx Cardiac Disorders: No Hx Congestive Heart Failure: No Hx Hypertension: No Hx Hypercholesterolemia: No Hx Pacemaker: No HX Cerebrovascular Accident: No Hx Seizures: No Hx Dementia: No Hx Diabetes: No Hx Gastrointestinal Disorders: No Hx Liver Disease: No Hx Genitourinary Disorders: No Hx Sexually Transmitted Disorders: No Hx Renal Disease (ESRD): No Hx Thyroid Disease: No Hx Human Immunodeficiency Virus (HIV): No (Negative 2016) Hx Hepatitis C: Yes (undetecable- Not on medication) Hx Depression: No Hx Suicide Attempt: No (Denies suicidal ideation at this time) Hx Bipolar Disorder: Yes Hx Schizophrenia: No - Patient Surgical History Past Surgical History: Yes Hx Neurologic Surgery: No Hx Cataract Extraction: No Hx Cardiac Surgery: No Hx Lung Surgery: No Hx Breast Surgery: No Hx Breast Biopsy: No Hx Abdominal Surgery: Yes (appendectomy) Hx Appendectomy: No Hx Cholecystectomy: No Hx Genitourinary Surgery: No Hx Section: No Hx Orthopedic Surgery: No Hx Hysterectomy: No Anesthesia Reaction: No - PPD History Previous Implant?: Yes Date: 09/23/17 Results: 0 - Smoking Cessation Smoking history: Current every day smoker Have you smoked in the past 12 months: Yes Aproximately how many cigarettes per day: 20 Cigars Per Day: 0 Hx Chewing Tobacco Use: No Initiated information on smoking cessation: Yes - Substances Abused Heroin Route: Injection Frequency: Daily Amount used: 10 bags Age of first use: 20 Date of Last Use: 11/23/17 Cocaine Route: Injection Frequency: Daily Amount used: 5 bags Age of first use: 17 Date of Last Use: 11/23/17 Marijuana/Hashish Route: Smoking Frequency: Daily Amount used: 1 bag Age of first use: 17 Date of Last Use: 11/23/17 Family Disease History - Family Disease History Family Disease History: [place]: Father (alcohol, ), Other: Father Admission Physical Exam [facility] - Vital Signs Vital Signs: Vital Signs - 24 hr 11/24/17 22:00 Temperature 97.2 F L Pulse Rate 73 Respiratory 17 Rate Blood Pressure 118/79 - Diagnostic (1) Cannabis dependence, uncomplicated Current Visit: Yes Status: Chronic (2) Cocaine dependence Current Visit: Yes Status: Chronic Qualifiers: Substance use status: uncomplicated Qualified Code(s): F14.20 - Cocaine dependence, uncomplicated (3) Nicotine dependence Current Visit: Yes Status: Chronic Qualifiers: Nicotine product type: cigarettes Substance use status: in withdrawal Qualified Code(s): F17.213 - Nicotine dependence, cigarettes, with withdrawal (4) Opioid dependence with withdrawal Current Visit: Yes Status: Chronic (5) Asthma Current Visit: Yes Status: Chronic Qualifiers: Asthma severity: mild Asthma persistence: intermittent Asthma complication type: with status asthmaticus Qualified Code(s): J45.22 - Mild intermittent asthma with status asthmaticus (6) Hepatitis-C Current Visit: Yes Status: Chronic Qualifiers: Viral hepatitis chronicity: chronic Hepatic coma status: without hepatic coma Qualified Code(s): B18.2 - Chronic viral hepatitis C Comment: treated x 3 months completed [facility] Breath Alcohol Content Breath Alcohol Content: 0 Urine Drug Screen - Results Drug Screen Negative: No Urine Drug Screen Results: THC-Marijuana, ANDRE-Cocaine, OPI-Opiates
[2017-11-24] MEDS ORDERED: diazePAM 5 MG TABLET PO PRN (23:53)
[2017-11-25] MEDS ORDERED: METHADONE HCL 10 MG TABLET (FOR DETOX USE ONLY) PO ONE ×3 (10:00→23:00)
[2017-11-25 10:06] LABS: HEMATOCRIT 38.7 % (35.4-49); HEMOGLOBIN 12.8 GM/dL (11.7-16.9); MCH 28.5 pg (25.7-33.7); MCHC 33.1 g/dl (32.0-35.9); MEAN CELL VOLUME 86.3 fl (80-96); MEAN PLT VOLUME 8.7 fl (7.5-11.1); PLATELET COUNT 261 K/MM3 (134-434); RBC 4.49 M/mm3 (4.00-5.60); RDW 14.9 % (11.9-15.9); WHITE BLOOD COUNT 7.6 K/mm3 (4.0-10.0)
[2017-11-25 10:18] LABS: CHLORIDE 106 mmol/L (98-107); POTASSIUM 4.1 mmol/L (3.5-5.1); SODIUM 141 mmol/L (136-145)
[2017-11-25] MEDS: NICOTINE 14 MG/24 HOURS TOPICAL PATCH TD SCH (10:21)
[2017-11-25] MEDS: PRENATAL VITAMINS W/ FOLIC ACID TABLET (FP) PO SCH (10:22)
[2017-11-25 10:24] LABS: ALBUMIN 2.9 g/dl (3.4-5.0); ALK PHOS 83 U/L (45-117); ANION GAP 7 (8-16); BILIRUBIN,TOTAL 0.4 mg/dL (0.2-1.0); BLOOD UREA NITROGEN 16 mg/dL (7-18); CALCIUM 8.4 mg/dL (8.5-10.1); CO2 28 mmol/L (21-32); CREATININE 0.9 mg/dL (0.7-1.3); GLUCOSE,RANDOM 96 mg/dL (74-106); SGOT/AST 21 U/L (15-37); SGPT/ALT 33 U/L (12-78); TOT PROT 6.5 g/dl (6.4-8.2)
[2017-11-25] MEDS: diazePAM 5 MG TABLET PO PRN ×2 (10:59→22:28)
--- NOTE | 2017-11-25 11:27 | EKG ---
Test Reason : Blood Pressure : / mmHG Vent. Rate : 056 BPM Atrial Rate : 056 BPM P-R Int : 134 ms QRS Dur : 090 ms QT Int : 402 ms P-R-T Axes : 025 100 071 degrees QTc Int : 387 ms SINUS BRADYCARDIA WITH SINUS ARRHYTHMIA RIGHTWARD AXIS WHEN COMPARED WITH ECG OF 23-OCT-2017 15:14, SINUS RHYTHM HAS REPLACED ECTOPIC ATRIAL RHYTHM Confirmed by VENKAT TEE MD ([id number]) on 11/25/2017 11:26:43 AM Referred By: Confirmed By:VENKAT TEE MD
--- NOTE | 2017-11-25 12:09 | PN ---
[facility] COWS - Scale Resting Pulse: 0= [place] 80 or Below Sweatin= Chills/Flushing Restless Observation: 1= Difficult to Sit Still Pupil Size: 1= Pupils >than Normal Bone or Joint Aches: 2= Severe Diffuse Aches Runny Nose/ Eye Tearin= Nasal Congestion GI Upset > 30mins: 2= Nausea/Diarrhea Tremor Observation of Outstretched Hands: 1= Tremor [place], Not Seen Yawning Observation: 2= >3x During Session Anxiety or Irritability: 2=Irritable/Anxious Goose Flesh Skin: 0=Smooth Skin COWS Score: 13 [facility] Progress Note (SOAP) Subjective: joint pain body ache sweat tremor anxiety irritable trouble sleep at night Objective: 11/25/17 12:13 Vital Signs Temperature 98.1 F 11/25/17 09:42 Pulse Rate 64 11/25/17 09:42 Respiratory Rate 18 11/25/17 09:42 Blood Pressure 114/76 11/25/17 09:42 O2 Sat by Pulse Oximetry (%) Laboratory Last Values WBC 7.6 K/mm3 (4.0-10.0) 11/25/17 07:50 RBC 4.49 M/mm3 (4.00-5.60) 11/25/17 07:50 Hgb 12.8 GM/dL (11.7-16.9) 11/25/17 07:50 Hct 38.7 % (35.4-49) 11/25/17 07:50 MCV 86.3 fl (80-96) 11/25/17 07:50 MCH 28.5 pg (25.7-33.7) 11/25/17 07:50 MCHC 33.1 g/dl (32.0-35.9) 11/25/17 07:50 RDW 14.9 % (11.9-15.9) 11/25/17 07:50 Plt Count 261 K/MM3 (134-434) 11/25/17 07:50 MPV 8.7 fl (7.5-11.1) 11/25/17 07:50 Sodium 141 mmol/L (136-145) 11/25/17 07:50 Potassium 4.1 mmol/L (3.5-5.1) 11/25/17 07:50 Chloride 106 mmol/L (98-107) 11/25/17 07:50 Carbon Dioxide 28 mmol/L (21-32) 11/25/17 07:50 Anion Gap 7 (8-16) L 11/25/17 07:50 BUN 16 mg/dL (7-18) 11/25/17 07:50 Creatinine 0.9 mg/dL (0.7-1.3) 11/25/17 07:50 Creat Clearance w eGFR > 60 (>60) 11/25/17 07:50 Random Glucose 96 mg/dL (74-106) 11/25/17 07:50 Calcium 8.4 mg/dL (8.5-10.1) L 11/25/17 07:50 Total Bilirubin 0.4 mg/dL (0.2-1.0) D 11/25/17 07:50 AST 21 U/L (15-37) D 11/25/17 07:50 ALT 33 U/L (12-78) 11/25/17 07:50 Alkaline Phosphatase 83 U/L (45-117) 11/25/17 07:50 Total Protein 6.5 g/dl (6.4-8.2) 11/25/17 07:50 Albumin 2.9 g/dl (3.4-5.0) L 11/25/17 07:50 HIV 1&2 Antibody Screen Negative 11/25/17 07:50 HIV P24 Antigen Negative 11/25/17 07:50 lab noted Assessment: 11/25/17 12:13 withdrawal sx Plan: continue detox
--- NOTE | 2017-11-25 14:00 | CONSULT ---
[facility] Psychiatric Consult - Data Date of interview: 11/25/17 Admission source: [facility] Identifying data: Patient is a 42 year old male father of 5, he is single and currently homeless. Substance Abuse History: Patient reports using heroin 10 bags daily, cocaine 5 bags daily, marijuana daily use , on MMTP 50 mg Medical History: Asthma and HepC, smokes cigarettes 1PPD. Psychiatric History: [facility] to [facility] and anxiety, , treated with klonopin and ambien, patient reports that he is "ok " and does not need any medications. Physical/Sexual Abuse/Trauma History: denies history of abuse. Mental Status Exam - Mental Status Exam Alert and Oriented to: Time, Place, Person Cognitive Function: Grossly Intact Patient Appearance: Unkempt Affect: Mood Congruent, Blunted, Constricted Patient Behavior: Sedated, Cooperative Speech Pattern: Clear Voice Loudness: Normal Thought Process: Goal Oriented Thought Disorder: Not Present Hallucinations: Denies Suicidal Ideation: Denies Homicidal Ideation: Denies Insight/Judgement: Fair Sleep: Fair Appetite: Good Muscle strength/Tone: Normal Psychiatric Findings - Problem List ([place] 1, 2,3) (1) Cocaine dependence Current Visit: Yes Status: Chronic Qualifiers: Substance use status: uncomplicated Qualified Code(s): F14.20 - Cocaine dependence, uncomplicated (2) Nicotine dependence Current Visit: Yes Status: Chronic Qualifiers: Nicotine product type: cigarettes Substance use status: in withdrawal Qualified Code(s): F17.213 - Nicotine dependence, cigarettes, with withdrawal (3) Opioid dependence with withdrawal Current Visit: Yes Status: Chronic (4) Substance induced mood disorder Current Visit: No Status: Acute - Initial Treatment Plan Initial Treatment Plan: continue detox. protocol, monitor progress.
[2017-11-25] MEDS: THIAMINE HCL 100 MG TABLET (FP) PO SCH (22:28)
[2017-11-25] MEDS ORDERED: chlordiazePOXIDE HCL 25 MG CAPSULE PO SCH (23:00)
--- NOTE | 2017-11-26 08:49 | EKG ---
Test Reason : Blood Pressure : / mmHG Vent. Rate : 062 BPM Atrial Rate : 062 BPM P-R Int : 140 ms QRS Dur : 088 ms QT Int : 392 ms P-R-T Axes : 027 113 075 degrees QTc Int : 397 ms NORMAL SINUS RHYTHM RIGHT AXIS DEVIATION ABNORMAL ECG WHEN COMPARED WITH ECG OF 25-NOV-2017 01:32, NO SIGNIFICANT CHANGE WAS FOUND Confirmed by BEBETO LI MD ([id number]) on 11/26/2017 8:49:24 AM Referred By: Confirmed By:BEBETO LI MD
[2017-11-26] MEDS ORDERED: METHADONE HCL 5 MG TABLET (FOR DETOX USE ONLY) PO ONE (10:00)
[2017-11-26] MEDS ORDERED: METHADONE HCL 10 MG TABLET (FOR DETOX USE ONLY) PO ONE (10:00)
[2017-11-26] MEDS: diazePAM 5 MG TABLET PO PRN ×2 (10:11→22:10)
[2017-11-26] MEDS: PRENATAL VITAMINS W/ FOLIC ACID TABLET (FP) PO SCH (10:11)
[2017-11-26] MEDS: NICOTINE 14 MG/24 HOURS TOPICAL PATCH TD SCH (10:13)
[2017-11-26 12:13] LABS: URINE APPEARANCE TURBID; URINE BILIRUBIN NEGATIVE (<2.0 mg/dL); URINE COLOR DKYELLOW; URINE GLUCOSE (UA) NEGATIVE (NEGATIVE); URINE KETONE NEGATIVE (NEGATIVE); URINE LEUK ESTERASE NEGATIVE (NEGATIVE); URINE NITRITE NEGATIVE (NEGATIVE); URINE PROTEIN NEGATIVE (NEGATIVE); URINE UROBILINOGEN NEGATIVE mg/dL (0.2-1.0)
--- NOTE | 2017-11-26 12:48 | PN ---
[facility] COWS - Scale Resting Pulse: 0= [place] 80 or Below Sweatin= Chills/Flushing Restless Observation: 3= Extraneous Movement Pupil Size: 1= Pupils >than Normal Bone or Joint Aches: 2= Severe Diffuse Aches Runny Nose/ Eye Tearin= Runny Nose/Eyes GI Upset > 30mins: 2= Nausea/Diarrhea Tremor Observation of Outstretched Hands: 2= Slight Tremor Visible Yawning Observation: 1= 1-2x During Session Anxiety or Irritability: 2=Irritable/Anxious Goose Flesh Skin: 0=Smooth Skin COWS Score: 16 S Progress Note (SOAP) Subjective: ALERT,IRRITABLE,TREMOR,PAIN IN THE BODY AND BACK Objective: 11/26/17 12:46 Vital Signs Temperature 97.9 F 11/26/17 09:26 Pulse Rate 63 11/26/17 09:26 Respiratory Rate 16 11/26/17 09:26 Blood Pressure 126/77 11/26/17 09:26 O2 Sat by Pulse Oximetry (%) 11/26/17 12:47 Laboratory Last Values WBC 7.6 K/mm3 (4.0-10.0) 11/25/17 07:50 RBC 4.49 M/mm3 (4.00-5.60) 11/25/17 07:50 Hgb 12.8 GM/dL (11.7-16.9) 11/25/17 07:50 Hct 38.7 % (35.4-49) 11/25/17 07:50 MCV 86.3 fl (80-96) 11/25/17 07:50 MCH 28.5 pg (25.7-33.7) 11/25/17 07:50 MCHC 33.1 g/dl (32.0-35.9) 11/25/17 07:50 RDW 14.9 % (11.9-15.9) 11/25/17 07:50 Plt Count 261 K/MM3 (134-434) 11/25/17 07:50 MPV 8.7 fl (7.5-11.1) 11/25/17 07:50 Sodium 141 mmol/L (136-145) 11/25/17 07:50 Potassium 4.1 mmol/L (3.5-5.1) 11/25/17 07:50 Chloride 106 mmol/L (98-107) 11/25/17 07:50 Carbon Dioxide 28 mmol/L (21-32) 11/25/17 07:50 Anion Gap 7 (8-16) L 11/25/17 07:50 BUN 16 mg/dL (7-18) 11/25/17 07:50 Creatinine 0.9 mg/dL (0.7-1.3) 11/25/17 07:50 Creat Clearance w eGFR > 60 (>60) 11/25/17 07:50 Random Glucose 96 mg/dL (74-106) 11/25/17 07:50 Calcium 8.4 mg/dL (8.5-10.1) L 11/25/17 07:50 Total Bilirubin 0.4 mg/dL (0.2-1.0) D 11/25/17 07:50 AST 21 U/L (15-37) D 11/25/17 07:50 ALT 33 U/L (12-78) 11/25/17 07:50 Alkaline Phosphatase 83 U/L (45-117) 11/25/17 07:50 Total Protein 6.5 g/dl (6.4-8.2) 11/25/17 07:50 Albumin 2.9 g/dl (3.4-5.0) L 11/25/17 07:50 Urine Color Dkyellow 11/26/17 09:10 Urine Appearance Turbid 11/26/17 09:10 Urine pH 7.0 (5.0-8.0) 11/26/17 09:10 Ur Specific [place] 1.024 (1.001-1.035) 11/26/17 09:10 Urine Protein Negative (NEGATIVE) 11/26/17 09:10 Urine Glucose (UA) Negative (NEGATIVE) 11/26/17 09:10 Urine Ketones Negative (NEGATIVE) 11/26/17 09:10 Urine Blood Negative (NEGATIVE) 11/26/17 09:10 Urine Nitrite Negative (NEGATIVE) 11/26/17 09:10 Urine Bilirubin Negative (<2.0 mg/dL) 11/26/17 09:10 Urine Urobilinogen Negative mg/dL (0.2-1.0) 11/26/17 09:10 Ur Leukocyte Esterase Negative (NEGATIVE) 11/26/17 09:10 RPR Titer Nonreactive (NONREACTIVE) 11/25/17 07:50 HIV 1&2 Antibody Screen Negative 11/25/17 07:50 HIV P24 Antigen Negative 11/25/17 07:50 Assessment: 11/26/17 12:47 WITHDRAWAL SYMPTOM Plan: CONTINUE DETOX
[2017-11-26] MEDS: THIAMINE HCL 100 MG TABLET (FP) PO SCH (22:10)
[2017-11-26] MEDS ORDERED: chlordiazePOXIDE 5 MG CAPSULE PO SCH (23:00)
[2017-11-27] MEDS ORDERED: METHADONE HCL 5 MG TABLET (FOR DETOX USE ONLY) PO ONE ×2 (10:00)
[2017-11-27] MEDS: diazePAM 5 MG TABLET PO PRN (10:16)
[2017-11-27] MEDS: PRENATAL VITAMINS W/ FOLIC ACID TABLET (FP) PO SCH (10:17)
[2017-11-27] MEDS: NICOTINE 14 MG/24 HOURS TOPICAL PATCH TD SCH (10:18)
--- NOTE | 2017-11-27 15:19 | PN ---
[facility] Progress Note (SOAP) Subjective: alert,irritable,anxious,interrupted sleep,tremor Objective: 11/27/17 15:18 Vital Signs Temperature 98.1 F 11/27/17 14:11 Pulse Rate 72 11/27/17 14:11 Respiratory Rate 18 11/27/17 14:11 Blood Pressure 108/55 11/27/17 14:11 O2 Sat by Pulse Oximetry (%) Assessment: 11/27/17 15:19 withdrawal symptom Plan: continue detox
--- NOTE | 2017-11-27 18:05 | PN ---
[place] Progress Note Note: called by nurse,stated patient could not complete treatment due to emergency medical problem in the family his son is in the hospital, seen by counselor,deysi hernández,did not want to wait
--- NOTE | 2017-11-27 18:07 | DS ---
[facility] Detox Discharge Summary Admission Date: 11/24/17 Discharge Date: 11/27/17 - History Present History: Alcohol Dependence, Cannabis Dependence, Cocaine Dependence Pertinent Past History: asthma hepatitis c - Physical Exam Results Vital Signs: Vital Signs Temperature 98.1 F 11/27/17 14:11 Pulse Rate 72 11/27/17 14:11 Respiratory Rate 18 11/27/17 14:11 Blood Pressure 108/55 11/27/17 14:11 O2 Sat by Pulse Oximetry (%) Pertinent Admission Physical Exam Findings: withdrawal signs and symptom Vital Signs Temperature 98.1 F 11/27/17 14:11 Pulse Rate 72 11/27/17 14:11 Respiratory Rate 18 11/27/17 14:11 Blood Pressure 108/55 11/27/17 14:11 O2 Sat by Pulse Oximetry (%) Laboratory Last Values WBC 7.6 K/mm3 (4.0-10.0) 11/25/17 07:50 RBC 4.49 M/mm3 (4.00-5.60) 11/25/17 07:50 Hgb 12.8 GM/dL (11.7-16.9) 11/25/17 07:50 Hct 38.7 % (35.4-49) 11/25/17 07:50 MCV 86.3 fl (80-96) 11/25/17 07:50 MCH 28.5 pg (25.7-33.7) 11/25/17 07:50 MCHC 33.1 g/dl (32.0-35.9) 11/25/17 07:50 RDW 14.9 % (11.9-15.9) 11/25/17 07:50 Plt Count 261 K/MM3 (134-434) 11/25/17 07:50 MPV 8.7 fl (7.5-11.1) 11/25/17 07:50 Sodium 141 mmol/L (136-145) 11/25/17 07:50 Potassium 4.1 mmol/L (3.5-5.1) 11/25/17 07:50 Chloride 106 mmol/L (98-107) 11/25/17 07:50 Carbon Dioxide 28 mmol/L (21-32) 11/25/17 07:50 Anion Gap 7 (8-16) L 11/25/17 07:50 BUN 16 mg/dL (7-18) 11/25/17 07:50 Creatinine 0.9 mg/dL (0.7-1.3) 11/25/17 07:50 Creat Clearance w eGFR > 60 (>60) 11/25/17 07:50 Random Glucose 96 mg/dL (74-106) 11/25/17 07:50 Calcium 8.4 mg/dL (8.5-10.1) L 11/25/17 07:50 Total Bilirubin 0.4 mg/dL (0.2-1.0) D 11/25/17 07:50 AST 21 U/L (15-37) D 11/25/17 07:50 ALT 33 U/L (12-78) 11/25/17 07:50 Alkaline Phosphatase 83 U/L (45-117) 11/25/17 07:50 Total Protein 6.5 g/dl (6.4-8.2) 11/25/17 07:50 Albumin 2.9 g/dl (3.4-5.0) L 11/25/17 07:50 Urine Color Dkyellow 11/26/17 09:10 Urine Appearance Turbid 11/26/17 09:10 Urine pH 7.0 (5.0-8.0) 11/26/17 09:10 Ur Specific [place] 1.024 (1.001-1.035) 11/26/17 09:10 Urine Protein Negative (NEGATIVE) 11/26/17 09:10 Urine Glucose (UA) Negative (NEGATIVE) 11/26/17 09:10 Urine Ketones Negative (NEGATIVE) 11/26/17 09:10 Urine Blood Negative (NEGATIVE) 11/26/17 09:10 Urine Nitrite Negative (NEGATIVE) 11/26/17 09:10 Urine Bilirubin Negative (<2.0 mg/dL) 11/26/17 09:10 Urine Urobilinogen Negative mg/dL (0.2-1.0) 11/26/17 09:10 Ur Leukocyte Esterase Negative (NEGATIVE) 11/26/17 09:10 RPR Titer Nonreactive (NONREACTIVE) 11/25/17 07:50 HIV 1&2 Antibody Screen Negative 11/25/17 07:50 HIV P24 Antigen Negative 11/25/17 07:50 - Medication Discharge Medications: Ambulatory Orders Albuterol Sulfate Inhaler - [Ventolin HFA Inhaler -] 2 inh PO Q4H PRN #1 inhaler 09/07/17 - Diagnosis (1) Opioid dependence with withdrawal Current Visit: Yes Status: Chronic (2) Hepatitis-C Current Visit: Yes Status: Chronic Qualifiers: Viral hepatitis chronicity: chronic Hepatic coma status: without hepatic coma Qualified Code(s): B18.2 - Chronic viral hepatitis C (3) Nicotine dependence Current Visit: Yes Status: Chronic Qualifiers: Nicotine product type: cigarettes Substance use status: in withdrawal Qualified Code(s): F17.213 - Nicotine dependence, cigarettes, with withdrawal (4) Weight loss Current Visit: No Status: Chronic (5) Alcohol dependence with uncomplicated withdrawal Current Visit: No Status: Acute (6) Asthma Current Visit: Yes Status: Chronic Qualifiers: Asthma severity: mild Asthma persistence: intermittent Asthma complication type: with status asthmaticus Qualified Code(s): J45.22 - Mild intermittent asthma with status asthmaticus - AMA Did Patient Leave Against Medical Advice: Yes
[2017-11-27 18:32] VITALS: BP 115/66; PULSE 63; TEMP 98.4
[2017-11-27] MEDS ORDERED: chlordiazePOXIDE HCL 10 MG CAPSULE PO SCH (23:00)
[2017-11-28] MEDS ORDERED: METHADONE HCL 5 MG TABLET (FOR DETOX USE ONLY) PO ONE (10:00)
[2017-11-28] MEDS ORDERED: METHADONE HCL 10 MG TABLET (FOR DETOX USE ONLY) PO ONE (10:00)
[2017-11-29] MEDS ORDERED: METHADONE HCL 5 MG TABLET (FOR DETOX USE ONLY) PO ONE (06:00)
[2017-11-29] MEDS ORDERED: METHADONE HCL 10 MG TABLET (FOR DETOX USE ONLY) PO ONE (10:00)
[2017-11-30] MEDS ORDERED: METHADONE HCL 5 MG TABLET (FOR DETOX USE ONLY) PO ONE (06:00)
== END 2017-11-27 18:00 | disposition left against medical advice (07) | DRG 770 ==
LOC: YASAS 20:03 → Y6N 23:42
PROVIDERS: ADMIT Surgery; ATTEND Surgery
PROC: HZ2ZZZZ Detoxification Services for Substance Abuse Treatment (ICD-10-PCS; principal; 2017-11-24)
DX: F11.23 Opioid dependence with withdrawal (principal); F10.230 Alcohol dependence with withdrawal, uncomplicated; F14.20 Cocaine dependence, uncomplicated; F12.20 Cannabis dependence, uncomplicated; F17.213 Nicotine dependence, cigarettes, with withdrawal; F19.24 Other psychoactive substance dependence with psychoactive substance-induced mood disorder; J45.22 Mild intermittent asthma with status asthmaticus; B18.2 Chronic viral hepatitis C; R63.4 Abnormal weight loss; Z68.20 Body mass index [BMI] 20.0-20.9, adult
CPT/HCPCS: 36415; 80053; 81003; 85027; 86593; 87389; 93005; 93010

== ENCOUNTER 2018-05-22 18:32 | Inpatient (IN) | payer OTHER ==
[2018-05-22 22:20] VITALS: BMI 21.9
--- NOTE | 2018-05-23 00:35 | HP ---
COWS - Scale Resting Pulse: 1= [place] 81-100 Sweatin= Chills/Flushing Restless Observation: 0= Sits Still Pupil Size: 0= Normal to Room Light Bone or Joint Aches: 4=Acute Joint/Muscle Pain Runny Nose/ Eye Tearin= Runny Nose/Eyes GI Upset > 30mins: 1= Stomach Cramp Tremor Observation: 2= Slight Tremor Visible Yawning Observation: 0= None Anxiety or Irritability: 4=Extreme Anxiety Goose Flesh Skin: 0=Smooth Skin COWS Score: 15 CIWA Score Nausea/Vomitin-Mild Nausea/No Vomiting Muscle Tremors: 4-Moderate,w/Arms Extend Anxiety: 3 Agitation: 3 Paroxysmal Sweats: 1-Minimal Palms Moist Orientation: 0-Oriented Tacttile Disturbances: 0-None Auditory Disturbances: 0-None Visual Disturbances: 0-None Headache: 3-Moderate CIWA-Ar Total Score: 15 - Admission Criteria OASAS Guidelines: Admission for Medically Managed Detox: Requires at least one of the followin. CIWA greater than 12 2. Seizures within the past 24 hours 3. Delirium tremens within the past 24 hours 4. Hallucinations within the past 24 hours 5. Acute intervention needed for co occurring medical disorder 6. Acute intervention needed for co occurring psychiatric disorder 7. Severe withdrawal that cannot be handled at a lower level of care (continued vomiting, continued diarrhea, abnormal vital signs) requiring intravenous medication and/or fluids 8. Admission [facility] Chief Complaint: Alcohol and Heroin withdrawal symptoms Allergies/Adverse Reactions: Allergies Allergy/AdvReac Type Severity Reaction Status Date / Time No Known Allergies Allergy Verified 10/23/17 13:17 History of Present Illness: 42 years old male with a long history of alcohol and heroin dependence is seeking admission to detox. Patient has been in previous detox and reports 4 years of sobriety. He has medical history of Hep C and asthma. Denies suicide attempt and suiidal ideation at this time Exam Limitations: No Limitations - Ebola screening Have you traveled outside of the country in the last 21 days: No (N) Have you had contact with anyone from an Ebola affected area: No Have you been sick,other than usual withdrawal symptoms: No Do you have a fever: No - Review of Systems Constitutional: Chills, Malaise, Changes in sleep EENT: reports: No Symptoms Reported Respiratory: reports: No Symptoms reported Cardiac: reports: No Symptoms Reported GI: reports: Poor Appetite, Poor Fluid Intake, Abdominal cramping : reports: No Symptoms Reported Musculoskeletal: reports: Back Pain, Muscle Pain Integumentary: reports: Dryness Neuro: reports: Tremors Endocrine: reports: No Symptoms Reported Hematology: reports: No Symptoms Reported Psychiatric: reports: Mood/Affect Appropiate, Orientated x3 Other Systems: Reviewed and Negative Patient History - Patient Medical History Hx Anemia: No Hx Asthma: Yes (Proventil) Hx Chronic Obstructive Pulmonary Disease (COPD): No Hx Cancer: No Hx Cardiac Disorders: No Hx Congestive Heart Failure: No Hx Hypertension: No Hx Hypercholesterolemia: No Hx Pacemaker: No HX Cerebrovascular Accident: No Hx Seizures: No Hx Dementia: No Hx Diabetes: No Hx Gastrointestinal Disorders: No Hx Liver Disease: No Hx Genitourinary Disorders: No Hx Sexually Transmitted Disorders: No Hx Renal Disease (ESRD): No Hx Thyroid Disease: No Hx Human Immunodeficiency Virus (HIV): No (Negative 2017) Hx Hepatitis C: Yes (undetecable- Not on medication) Hx Depression: No Hx Suicide Attempt: No (Denies suicidal ideation at this time) Hx Bipolar Disorder: Yes Hx Schizophrenia: No - Patient Surgical History Past Surgical History: Yes Hx Neurologic Surgery: No Hx Cataract Extraction: No Hx Cardiac Surgery: No Hx Lung Surgery: No Hx Breast Surgery: No Hx Breast Biopsy: No Hx Abdominal Surgery: Yes (appendectomy) Hx Appendectomy: No Hx Cholecystectomy: No Hx Genitourinary Surgery: No Hx Section: No Hx Orthopedic Surgery: No Hx Hysterectomy: No Anesthesia Reaction: No - PPD History Date: 09/23/17 Results: 0 PPD to be Administered?: No - Reproductive History Patient is a Female of Child Bearing Age (11 -55 yrs old): No (Male) - Smoking Cessation Smoking history: Current every day smoker Have you smoked in the past 12 months: Yes Aproximately how many cigarettes per day: 20 Cigars Per Day: 0 Hx Chewing Tobacco Use: No Initiated information on smoking cessation: Yes 'Breaking Loose' booklet given: 05/23/18 - Substance & Tx. History Hx Alcohol Use: Yes Hx Substance Use: Yes Substance Use Type: Cocaine, Heroin, Opiates Hx Substance Use Treatment: Yes ([facility]) - Substances Abused Alcohol Route: Oral Frequency: Daily Amount used: 1 PINT Age of first use: 20 Date of Last Use: 05/22/18 Heroin Route: Injection Frequency: Daily Amount used: 1 BUNDLE Age of first use: 23 Date of Last Use: 05/22/18 Cocaine Route: Smoking Frequency: Daily Amount used: 5 BAGS Age of first use: 20 Date of Last Use: 05/22/18 Family Disease History - Family Disease History Family Disease History: [place]: Father (alcohol, ), Other: Father Admission Physical Exam [facility] - Vital Signs Vital Signs: Vital Signs - 24 hr 05/22/18 22:17 Temperature 98.7 F Pulse Rate 90 Respiratory 18 Rate Blood Pressure 115/89 - Physical General Appearance: Yes: Moderate Distress, Tremorous, Irritable, Sweating HEENTM: Yes: Normal ENT Inspection, Normal Voice, BROD[place] Respiratory: Yes: Lungs Clear, Normal Breath Sounds, No Respiratory Distress Neck: Yes: Supple Breast: Yes: Breast Exam Deferred Cardiology: Yes: Tachycardia Abdominal: Yes: Normal Bowel Sounds, Soft Genitourinary: Yes: Within Normal Limits Back: Yes: Normal Inspection Musculoskeletal: Yes: Back pain, Muscle Pain Extremities: Yes: Tremors Neurological: Yes: Alert, Normal Mood/Affect Integumentary: Yes: Warm Lymphatic: Yes: Within Normal Limits - Diagnostic (1) Alcohol dependence with uncomplicated withdrawal Current Visit: Yes Status: Chronic (2) Asthma Current Visit: Yes Status: Chronic Qualifiers: Asthma severity: mild Asthma persistence: intermittent Asthma complication type: with status asthmaticus Qualified Code(s): J45.22 - Mild intermittent asthma with status asthmaticus (3) Cannabis dependence, uncomplicated Current Visit: Yes Status: Chronic (4) Cocaine dependence, uncomplicated Current Visit: Yes Status: Chronic (5) Hepatitis-C Current Visit: Yes Status: Chronic Qualifiers: Viral hepatitis chronicity: chronic Hepatic coma status: without hepatic coma Qualified Code(s): B18.2 - Chronic viral hepatitis C Comment: treated x 3 months completed (6) Nicotine dependence Current Visit: Yes Status: Chronic Qualifiers: Nicotine product type: cigarettes Substance use status: in withdrawal Qualified Code(s): F17.213 - Nicotine dependence, cigarettes, with withdrawal Cleared for Admission S - Detox or Rehab S Level of Care: Medically Managed Detox Regimen/Protocol: Methadone/Librium S Breath Alcohol Content Breath Alcohol Content: 0 Urine Drug Screen - Results Drug Screen Negative: No Urine Drug Screen Results: THC-Marijuana, ANDRE-Cocaine, OPI-Opiates
[2018-05-23] MEDS ORDERED: MAGNESIUM HYDROX 2400MG/30ML ORAL SUSPENSION 30 ML CUP PO PRN (01:16)
[2018-05-23] MEDS ORDERED: chlordiazePOXIDE HCL 25 MG CAPSULE PO PRN (01:16)
[2018-05-23] MEDS ORDERED: MAGNESIUM CITRATE 300 ML BOTTLE PO PRN (01:16)
[2018-05-23] MEDS ORDERED: METHADONE HCL 10 MG TABLET (FOR DETOX USE ONLY) PO ONE ×3 (01:16→22:00)
[2018-05-23] MEDS ORDERED: guaiFENesin/D-METHORPHAN HB 10 ML UNIT-DOSE CUPS PO PRN (01:16)
[2018-05-23] MEDS ORDERED: IBUPROFEN 400 MG TABLET (FP) PO PRN (01:16)
[2018-05-23] MEDS ORDERED: MENTHOL/PHENOL 1 EACH UD MM PRN (01:16)
[2018-05-23] MEDS ORDERED: chlordiazePOXIDE HCL 25 MG CAPSULE PO ONE (01:16)
[2018-05-23] MEDS ORDERED: NICOTINE POLACRILEX 2 MG GUM BC PRN (01:16)
[2018-05-23] MEDS ORDERED: LOPERAMIDE HCL 2 MG CAPSULE PO PRN (01:16)
[2018-05-23] MEDS ORDERED: P-EPHED 60MG/TRIPROLIDI 2.5MG TABLET PO PRN (01:16)
[2018-05-23] MEDS ORDERED: ACETAMINOPHEN 325 MG TABLET (FP) PO PRN (01:16)
[2018-05-23] MEDS ORDERED: MAG HYDROX/AL HYDROX/SIMETH 30 ML UNIT-DOSE CUP PO PRN (01:16)
[2018-05-23] MEDS ORDERED: ALBUTEROL SO4 8 GM HFA INHALER IH PRN (01:18)
[2018-05-23] MEDS: chlordiazePOXIDE HCL 25 MG CAPSULE PO SCH ×5 (06:06→23:06)
[2018-05-23] MEDS ORDERED: TRIMETHOBENZAMIDE HCL 200MG/2ML INJ IM PRN (09:18)
[2018-05-23] MEDS ORDERED: CYCLOBENZAPRINE HCL 10 MG TABLET (FP) PO PRN (09:19)
--- NOTE | 2018-05-23 09:52 | PN ---
S Progress Note Note: PATIENT ADMITTED EARLIER THIS MORNING FOR DETOX FROM ETOH/HEROIN. C/O NAUSEA AND VOMITING X 2, +BODY ACHES. Laboratory Tests 05/23/18 05:52 POC Glucometer 109 Vital Signs Temperature 96.5 F L 05/23/18 09:18 Pulse Rate 65 05/23/18 09:18 Respiratory Rate 18 05/23/18 09:18 Blood Pressure 130/79 05/23/18 09:18 O2 Sat by Pulse Oximetry (%) PE: SKIN WARM, + SWEATING CAR S1S2 RESP CTA BL GI SOFT, BS+, NT, ND EXT FULL ROM, +TREMORS ALERT AND ORIENTED X 3 A/P: WITHDRAWAL SX CONTINUE DETOX TIGAN ORDERED FOR N/V FLEXERIL PRN ENCOURAGE ORAL FLUIDS CONTINUE TO MONITOR
[2018-05-23] MEDS: NICOTINE 14 MG/24 HOURS TOPICAL PATCH TD SCH (10:41)
[2018-05-23] MEDS: PRENATAL VITAMINS W/ FOLIC ACID TABLET (FP) PO SCH (10:42)
--- NOTE | 2018-05-23 14:05 | EKG ---
Test Reason : Blood Pressure : / mmHG Vent. Rate : 070 BPM Atrial Rate : 070 BPM P-R Int : 114 ms QRS Dur : 092 ms QT Int : 386 ms P-R-T Axes : -40 126 060 degrees QTc Int : 416 ms UNUSUAL P AXIS, POSSIBLE ECTOPIC ATRIAL RHYTHM LEFT POSTERIOR FASCICULAR BLOCK ABNORMAL ECG WHEN COMPARED WITH ECG OF 25-NOV-2017 12:30, ECTOPIC ATRIAL RHYTHM HAS REPLACED SINUS RHYTHM Confirmed by Jace Pacheco MD ([id number]) on 05/23/2018 2:05:04 PM Referred By: Confirmed By:Jace Pacheco MD
[2018-05-23 15:26] LABS: URINE APPEARANCE CLOUDY; URINE BILIRUBIN NEGATIVE (<2.0 mg/dL); URINE COLOR YELLOW; URINE GLUCOSE (UA) NEGATIVE (NEGATIVE); URINE KETONE TRACE (NEGATIVE); URINE LEUK ESTERASE NEGATIVE (NEGATIVE); URINE NITRITE NEGATIVE (NEGATIVE); URINE PROTEIN 2+ (NEGATIVE)
[2018-05-23 15:31] LABS: URINE MUCUS RARE; YEAST FEW
--- NOTE | 2018-05-23 17:48 | CONSULT ---
[facility] Psychiatric Consult - Data Date of interview: 05/23/18 Admission source: [facility] Identifying data: Patient is a 42 year old single male, father of four, unemployed (denies receiving financial assistance), and is currently homeless. This is one of multiple admissions for patient. Patient admitted to for alcohol, cocaine, and opiate dependence. Substance Abuse History: Smoking Cessation. Smoking history: Current every day smoker. Have you smoked in the past 12 months: Yes. Aproximately how many cigarettes per day: 20. Cigars Per Day: 0. Hx Chewing Tobacco Use: No. Initiated information on smoking cessation: Yes. 'Breaking Loose' booklet given : 05/23/18. - Substance & Tx. History. Hx Alcohol Use: Yes. Hx Substance Use : Yes. Substance Use Type: Cocaine, Heroin, Opiates. Hx Substance Use Treatment: Yes ([facility]). - Substances Abused. Alcohol. Route: Oral. Frequency: Daily. Amount used: 1 PINT. Age of first use: 20. Date of Last Use : 05/22/18. Heroin. Route: Injection. Frequency: Daily. Amount used: 1 BUNDLE. Age of first use: 23. Date of Last Use: 05/22/18. Cocaine. Route : Smoking. Frequency: Daily. Amount used: 5 BAGS. Age of first use: 20. Date of Last Use: 05/22/18 Medical History: Asthma, Hep C, appendectomy Psychiatric History: Patient is a poor historian. He denies h/o psychtric hospitalization. States he last saw an outpatient psychiatrist 2 years ago. He denies taking psychotrophic medications. [employer] saw patient in September of 2017 and he reported h/o psychiatric hospitalizations. Patient denies h/o suicide attempt. Physical/Sexual Abuse/Trauma History: denies. Mental Status Exam - Mental Status Exam Alert and Oriented to: Time, Place, Person Cognitive Function: Good Patient Appearance: Well Groomed Mood: Withdrawn Affect: Mood Congruent Patient Behavior: Fatigued Speech Pattern: Delayed Voice Loudness: Moderately Soft/Quiet Thought Process: Goal Oriented Thought Disorder: Not Present Hallucinations: Denies Suicidal Ideation: Denies Homicidal Ideation: Denies Insight/Judgement: Poor Sleep: Fair Appetite: Fair Muscle strength/Tone: Normal Gait/Station: Normal Psychiatric Findings - Problem List ([place] 1, 2,3) (1) Alcohol dependence with uncomplicated withdrawal Current Visit: Yes Status: Acute (2) Cannabis dependence, uncomplicated Current Visit: Yes Status: Chronic (3) Cocaine dependence, uncomplicated Current Visit: Yes Status: Chronic (4) Opioid dependence with withdrawal Current Visit: Yes Status: Acute (5) Substance induced mood disorder Current Visit: Yes Status: Acute - Initial Treatment Plan Initial Treatment Plan: Psychoeducation provided. Detoxification in progress. Observation.
[2018-05-23] MEDS ORDERED: MELATONIN 5 MG TABLETS PO PRN (22:00)
[2018-05-23] MEDS: THIAMINE HCL 100 MG TABLET (FP) PO SCH (22:56)
[2018-05-24] MEDS: chlordiazePOXIDE HCL 25 MG CAPSULE PO SCH ×4 (06:14→22:43)
[2018-05-24] MEDS: PRENATAL VITAMINS W/ FOLIC ACID TABLET (FP) PO SCH (09:59)
[2018-05-24] MEDS: NICOTINE 14 MG/24 HOURS TOPICAL PATCH TD SCH (09:59)
[2018-05-24] MEDS ORDERED: METHADONE HCL 10 MG TABLET (FOR DETOX USE ONLY) PO SCH (10:00)
[2018-05-24 10:20] LABS: HEMATOCRIT 44.8 % (35.4-49); HEMOGLOBIN 14.3 GM/dL (11.7-16.9); MCH 27.6 pg (25.7-33.7); MCHC 31.9 g/dl (32.0-35.9); MEAN CELL VOLUME 86.8 fl (80-96); MEAN PLT VOLUME 8.3 fl (7.5-11.1); PLATELET COUNT 322 K/MM3 (134-434); RBC 5.16 M/mm3 (4.00-5.60); RDW 14.3 % (11.9-15.9); WHITE BLOOD COUNT 13.1 K/mm3 (4.0-10.0)
[2018-05-24] MEDS ORDERED: ONDANSETRON *ODT* 4 MG TABLET SL PRN (10:21)
[2018-05-24 11:09] LABS: ALBUMIN 3.7 g/dl (3.4-5.0); ALK PHOS 78 U/L (45-117); ANION GAP 10 MMOL/L (8-16); BILIRUBIN,TOTAL 0.6 mg/dL (0.2-1); BLOOD UREA NITROGEN 12 mg/dL (7-18); CALCIUM 9.2 mg/dL (8.5-10.1); CHLORIDE 96 mmol/L (98-107); CO2 25 mmol/L (21-32); CREATININE 0.7 mg/dL (0.55-1.3); GLUCOSE,RANDOM 99 mg/dL (74-106); SGOT/AST 25 U/L (15-37); SGPT/ALT 43 U/L (13-61); SODIUM 131 mmol/L (136-145); TOT PROT 7.7 g/dl (6.4-8.2)
--- NOTE | 2018-05-24 12:12 | PN ---
S CIWA - CIWA Score Nausea/Vomitin Muscle Tremors: 4-Moderate,w/Arms Extend Anxiety: 3 Agitation: 3 Paroxysmal Sweats: 3 Orientation: 0-Oriented Tacttile Disturbances: 0-None Auditory Disturbances: 0-None Visual Disturbances: 0-None Headache: 0-None Present CIWA-Ar Total Score: 15 [facility] COWS - Scale Resting Pulse: 0= [place] 80 or Below Sweatin= Chills/Flushing Restless Observation: 3= Extraneous Movement Pupil Size: 0= Normal to Room Light Bone or Joint Aches: 2= Severe Diffuse Aches Runny Nose/ Eye Tearin= Runny Nose/Eyes GI Upset > 30mins: 3= Vomiting/Diarrhea Tremor Observation of Outstretched Hands: 2= Slight Tremor Visible Yawning Observation: 1= 1-2x During Session Anxiety or Irritability: 2=Irritable/Anxious Goose Flesh Skin: 0=Smooth Skin COWS Score: 16 S Progress Note (SOAP) Subjective: Tremor, vomited x 4, interrupted sleep, sweating Objective: 05/24/18 12:08 Last Vital Signs Temp Pulse Resp BP Pulse Ox 96.4 F L 73 18 134/71 05/24/18 09:26 05/24/18 09:26 05/24/18 09:26 05/24/18 09:26 Laboratory Tests 05/23/18 05/23/18 05/24/18 05:52 13:20 07:00 WBC 13.1 H RBC 5.16 Hgb 14.3 Hct 44.8 D MCV 86.8 MCH 27.6 MCHC 31.9 L RDW 14.3 Plt Count 322 D MPV 8.3 Sodium Potassium Chloride Carbon Dioxide Anion Gap BUN Creatinine Creat Clearance w eGFR POC Glucometer 109 Random Glucose Calcium Total Bilirubin AST ALT Alkaline Phosphatase Total Protein Albumin Urine Color Yellow Urine Appearance Cloudy Urine pH 9.0 H D Ur Specific [place] 1.025 Urine Protein 2+ H Urine Glucose (UA) Negative Urine Ketones Trace H Urine Blood Negative Urine Nitrite Negative Urine Bilirubin Negative Urine Urobilinogen 2.0 Ur Leukocyte Esterase Negative Urine WBC (Auto) 8 Urine RBC (Auto) 2 Urine Mucus Rare Urine Yeast Few 05/24/18 07:00 WBC RBC Hgb Hct MCV MCH MCHC RDW Plt Count MPV Sodium 131 L Potassium 4.0 Chloride 96 L Carbon Dioxide 25 Anion Gap 10 BUN 12 Creatinine 0.7 Creat Clearance w eGFR > 60 POC Glucometer Random Glucose 99 Calcium 9.2 Total Bilirubin 0.6 AST 25 ALT 43 Alkaline Phosphatase 78 Total Protein 7.7 Albumin 3.7 Urine Color Urine Appearance Urine pH Ur Specific [place] Urine Protein Urine Glucose (UA) Urine Ketones Urine Blood Urine Nitrite Urine Bilirubin Urine Urobilinogen Ur Leukocyte Esterase Urine WBC (Auto) Urine RBC (Auto) Urine Mucus Urine Yeast Labs reviewed: wbc 13.1, abnormal UA/yeast, Na 131 Assessment: 05/24/18 12:11 Withdrawal symptoms Noted with leukocytosis, hyponatremia, abnormal UA and Yeast UTI Plan: Continue detox Leukocytosis: asymptomatic, repeat CBC Hyponatremia: most likely due to vomiting, repeat serum sodium (will order BMP instead due to vomiting) Abnormal UA: encouraged PO water intake, repeat UA Yeast UTI: diflucan 150mg PO x 1 dose
[2018-05-24] MEDS ORDERED: FLUCONAZOLE 50 MG TABLET PO ONE (12:20)
--- NOTE | 2018-05-24 15:43 | EKG ---
Test Reason : Blood Pressure : / mmHG Vent. Rate : 073 BPM Atrial Rate : 073 BPM P-R Int : 114 ms QRS Dur : 096 ms QT Int : 404 ms P-R-T Axes : 000 090 072 degrees QTc Int : 445 ms SINUS RHYTHM WITH FUSION COMPLEXES RIGHTWARD AXIS BORDERLINE ECG WHEN COMPARED WITH ECG OF 23-MAY-2018 02:36, SINUS RHYTHM HAS REPLACED ECTOPIC ATRIAL RHYTHM QRS AXIS SHIFTED LEFT Confirmed by JEN LANG, BEBETO ([id number]) on 05/24/2018 3:43:36 PM Referred By: Confirmed By:BEBETO LI MD
[2018-05-24] MEDS: THIAMINE HCL 100 MG TABLET (FP) PO SCH (22:44)
[2018-05-25] MEDS: chlordiazePOXIDE 5 MG CAPSULE PO SCH ×2 (06:20→10:18)
[2018-05-25 09:24] VITALS: BP 112/75; PULSE 71; TEMP 97.3
--- NOTE | 2018-05-25 09:30 | PN ---
[facility] CIWA - CIWA Score Nausea/Vomitin-Mild Nausea/No Vomiting Muscle Tremors: 3 Anxiety: 2 Agitation: 2 Paroxysmal Sweats: 1-Minimal Palms Moist Orientation: 0-Oriented Tacttile Disturbances: 1-Very Mild Itch/Numbness Auditory Disturbances: 1-Very Mild Visual Disturbances: 0-None Headache: 1-Very Mild CIWA-Ar Total Score: 12 S COWS - Scale Resting Pulse: 0= [place] 80 or Below Sweatin= Chills/Flushing Restless Observation: 1= Difficult to Sit Still Pupil Size: 0= Normal to Room Light Bone or Joint Aches: 1= Mild Discomfort Runny Nose/ Eye Tearin= Nasal Congestion GI Upset > 30mins: 2= Nausea/Diarrhea Tremor Observation of Outstretched Hands: 1= Tremor [place], Not Seen Yawning Observation: 1= 1-2x During Session Anxiety or Irritability: 1=Feels Anxious/Irritable Goose Flesh Skin: 3=Piloerection COWS Score: 12 [facility] Progress Note (SOAP) Subjective: diarrhea nausea sweat tremor body aches anxiety restlessness Objective: 05/25/18 09:29 Vital Signs Temperature 97.3 F L 05/25/18 09:23 Pulse Rate 71 05/25/18 09:23 Respiratory Rate 18 05/25/18 09:23 Blood Pressure 112/75 05/25/18 09:23 O2 Sat by Pulse Oximetry (%) Laboratory Last Values WBC 13.1 K/mm3 (4.0-10.0) H 05/24/18 07:00 RBC 5.16 M/mm3 (4.00-5.60) 05/24/18 07:00 Hgb 14.3 GM/dL (11.7-16.9) 05/24/18 07:00 Hct 44.8 % (35.4-49) D 05/24/18 07:00 MCV 86.8 fl (80-96) 05/24/18 07:00 MCH 27.6 pg (25.7-33.7) 05/24/18 07:00 MCHC 31.9 g/dl (32.0-35.9) L 05/24/18 07:00 RDW 14.3 % (11.9-15.9) 05/24/18 07:00 Plt Count 322 K/MM3 (134-434) D 05/24/18 07:00 MPV 8.3 fl (7.5-11.1) 05/24/18 07:00 Sodium 131 mmol/L (136-145) L 05/24/18 07:00 Potassium 4.0 mmol/L (3.5-5.1) 05/24/18 07:00 Chloride 96 mmol/L (98-107) L 05/24/18 07:00 Carbon Dioxide 25 mmol/L (21-32) 05/24/18 07:00 Anion Gap 10 MMOL/L (8-16) 05/24/18 07:00 BUN 12 mg/dL (7-18) 05/24/18 07:00 Creatinine 0.7 mg/dL (0.55-1.3) 05/24/18 07:00 Creat Clearance w eGFR > 60 (>60) 05/24/18 07:00 POC Glucometer 109 UNITS (80-120) 05/23/18 05:52 Random Glucose 99 mg/dL (74-106) 05/24/18 07:00 Calcium 9.2 mg/dL (8.5-10.1) 05/24/18 07:00 Total Bilirubin 0.6 mg/dL (0.2-1) 05/24/18 07:00 AST 25 U/L (15-37) 05/24/18 07:00 ALT 43 U/L (13-61) 05/24/18 07:00 Alkaline Phosphatase 78 U/L (45-117) 05/24/18 07:00 Total Protein 7.7 g/dl (6.4-8.2) 05/24/18 07:00 Albumin 3.7 g/dl (3.4-5.0) 05/24/18 07:00 Urine Color Yellow 05/23/18 13:20 Urine Appearance Cloudy 05/23/18 13:20 Urine pH 9.0 (5.0-8.0) H D 05/23/18 13:20 Ur Specific [place] 1.025 (1.010-1.035) 05/23/18 13:20 Urine Protein 2+ (NEGATIVE) H 05/23/18 13:20 Urine Glucose (UA) Negative (NEGATIVE) 05/23/18 13:20 Urine Ketones Trace (NEGATIVE) H 05/23/18 13:20 Urine Blood Negative (NEGATIVE) 05/23/18 13:20 Urine Nitrite Negative (NEGATIVE) 05/23/18 13:20 Urine Bilirubin Negative (<2.0 mg/dL) 05/23/18 13:20 Urine Urobilinogen 2.0 mg/dL (0.2-1.0) 05/23/18 13:20 Ur Leukocyte Esterase Negative (NEGATIVE) 05/23/18 13:20 Urine WBC (Auto) 8 /hpf (3-5) 05/23/18 13:20 Urine RBC (Auto) 2 /hpf (0-3) 05/23/18 13:20 Urine Mucus Rare 05/23/18 13:20 Urine Yeast Few 05/23/18 13:20 lab noted Assessment: 05/25/18 09:30 withdrawal sx Plan: continue detox
[2018-05-25] MEDS ORDERED: METHADONE HCL 5 MG TABLET (FOR DETOX USE ONLY) PO SCH (10:00)
[2018-05-25] MEDS: PRENATAL VITAMINS W/ FOLIC ACID TABLET (FP) PO SCH (10:17)
[2018-05-25] MEDS: NICOTINE 14 MG/24 HOURS TOPICAL PATCH TD SCH (10:18)
[2018-05-25 10:19] LABS: BASO % 0.6 % (0-2.0); EOS % 0.8 % (0-4.5); HEMOGLOBIN 14.2 GM/dL (11.7-16.9); LYMPH % 53.4 % (8-40); MCH 27.3 pg (25.7-33.7); MCHC 31.5 g/dl (32.0-35.9); MEAN CELL VOLUME 86.9 fl (80-96); MEAN PLT VOLUME 8.5 fl (7.5-11.1); MONO % 6.9 % (3.8-10.2); NEUT % 38.3 % (42.8-82.8); PLATELET COUNT 295 K/MM3 (134-434); RBC 5.18 M/mm3 (4.00-5.60); RDW 14.5 % (11.9-15.9); WHITE BLOOD COUNT 12.1 K/mm3 (4.0-10.0)
[2018-05-25 10:40] LABS: ANION GAP 11 MMOL/L (8-16); BLOOD UREA NITROGEN 13 mg/dL (7-18); CALCIUM 8.4 mg/dL (8.5-10.1); CHLORIDE 95 mmol/L (98-107); CO2 25 mmol/L (21-32); CREATININE 0.8 mg/dL (0.55-1.3); GLUCOSE,RANDOM 85 mg/dL (74-106); POTASSIUM 4.4 mmol/L (3.5-5.1); SODIUM 131 mmol/L (136-145)
--- NOTE | 2018-05-25 14:45 | DS ---
[facility] Detox Discharge Summary Admission Date: 05/22/18 Discharge Date: 05/25/18 - History Present History: Alcohol Dependence, Cocaine Dependence Additional Comments: 42 years old male admitted on 05/23/18 for alcohol and opiate withdrawal sx insists to leave the detox unit today patient is alert oriented x 3 no acute distress denies suicidal denies homocidal no self destructive behavior patient wants to go back to [place] and "know the way" Pertinent Past History: encourage the patient to attend community self help groups and meeting for alcohol and opiate addiction as well as medication assisted program such as methadone or suboxone maintenance program - Physical Exam Results Vital Signs: Vital Signs Temperature 97.3 F L 05/25/18 09:23 Pulse Rate 71 05/25/18 09:23 Respiratory Rate 18 05/25/18 09:23 Blood Pressure 112/75 05/25/18 09:23 O2 Sat by Pulse Oximetry (%) Pertinent Admission Physical Exam Findings: alcohol and opiate withdrawal sx Vital Signs Temperature 97.3 F L 05/25/18 09:23 Pulse Rate 71 05/25/18 09:23 Respiratory Rate 18 05/25/18 09:23 Blood Pressure 112/75 05/25/18 09:23 O2 Sat by Pulse Oximetry (%) Laboratory Last Values WBC 12.1 K/mm3 (4.0-10.0) H 05/25/18 07:50 RBC 5.18 M/mm3 (4.00-5.60) 05/25/18 07:50 Hgb 14.2 GM/dL (11.7-16.9) 05/25/18 07:50 Hct 45.0 % (35.4-49) 05/25/18 07:50 MCV 86.9 fl (80-96) 05/25/18 07:50 MCH 27.3 pg (25.7-33.7) 05/25/18 07:50 MCHC 31.5 g/dl (32.0-35.9) L 05/25/18 07:50 RDW 14.5 % (11.9-15.9) 05/25/18 07:50 Plt Count 295 K/MM3 (134-434) 05/25/18 07:50 MPV 8.5 fl (7.5-11.1) 05/25/18 07:50 Absolute Neuts (auto) 4.6 K/mm3 (1.5-8.0) 05/25/18 07:50 Neutrophils % 38.3 % (42.8-82.8) L 05/25/18 07:50 Lymphocytes % 53.4 % (8-40) H 05/25/18 07:50 Monocytes % 6.9 % (3.8-10.2) 05/25/18 07:50 Eosinophils % 0.8 % (0-4.5) 05/25/18 07:50 Basophils % 0.6 % (0-2.0) 05/25/18 07:50 Nucleated RBC % 0 % (0-0) 05/25/18 07:50 Sodium 131 mmol/L (136-145) L 05/25/18 07:50 Potassium 4.4 mmol/L (3.5-5.1) 05/25/18 07:50 Chloride 95 mmol/L (98-107) L 05/25/18 07:50 Carbon Dioxide 25 mmol/L (21-32) 05/25/18 07:50 Anion Gap 11 MMOL/L (8-16) 05/25/18 07:50 BUN 13 mg/dL (7-18) 05/25/18 07:50 Creatinine 0.8 mg/dL (0.55-1.3) 05/25/18 07:50 Creat Clearance w eGFR > 60 (>60) 05/25/18 07:50 POC Glucometer 109 UNITS (80-120) 05/23/18 05:52 Random Glucose 85 mg/dL (74-106) 05/25/18 07:50 Calcium 8.4 mg/dL (8.5-10.1) L 05/25/18 07:50 Total Bilirubin 0.6 mg/dL (0.2-1) 05/24/18 07:00 AST 25 U/L (15-37) 05/24/18 07:00 ALT 43 U/L (13-61) 05/24/18 07:00 Alkaline Phosphatase 78 U/L (45-117) 05/24/18 07:00 Total Protein 7.7 g/dl (6.4-8.2) 05/24/18 07:00 Albumin 3.7 g/dl (3.4-5.0) 05/24/18 07:00 Urine Color Yellow 05/23/18 13:20 Urine Appearance Cloudy 05/23/18 13:20 Urine pH 9.0 (5.0-8.0) H D 05/23/18 13:20 Ur Specific [place] 1.025 (1.010-1.035) 05/23/18 13:20 Urine Protein 2+ (NEGATIVE) H 05/23/18 13:20 Urine Glucose (UA) Negative (NEGATIVE) 05/23/18 13:20 Urine Ketones Trace (NEGATIVE) H 05/23/18 13:20 Urine Blood Negative (NEGATIVE) 05/23/18 13:20 Urine Nitrite Negative (NEGATIVE) 05/23/18 13:20 Urine Bilirubin Negative (<2.0 mg/dL) 05/23/18 13:20 Urine Urobilinogen 2.0 mg/dL (0.2-1.0) 05/23/18 13:20 Ur Leukocyte Esterase Negative (NEGATIVE) 05/23/18 13:20 Urine WBC (Auto) 8 /hpf (3-5) 05/23/18 13:20 Urine RBC (Auto) 2 /hpf (0-3) 05/23/18 13:20 Urine Mucus Rare 05/23/18 13:20 Urine Yeast Few 05/23/18 13:20 RPR Titer Nonreactive (NONREACTIVE) 05/24/18 07:00 lab noted - Treatment Hospital Course: Detox Protocol Followed, Responded well Patient has Accepted a Rehab Referral to: community self help meetings and groups - Medication Discharge Medications: Ambulatory Orders Albuterol Sulfate Inhaler - [Ventolin HFA Inhaler -] 2 inh PO Q4H PRN #1 inhaler 09/07/17 - Diagnosis (1) Alcohol dependence with uncomplicated withdrawal Status: Acute (2) Opioid dependence with withdrawal Status: Acute (3) Substance induced mood disorder Status: Suspected (4) Asthma Status: Chronic Qualifiers: Asthma severity: mild Asthma persistence: intermittent Asthma complication type: with status asthmaticus Qualified Code(s): J45.22 - Mild intermittent asthma with status asthmaticus (5) Hepatitis-C Status: Chronic Qualifiers: Viral hepatitis chronicity: chronic Hepatic coma status: without hepatic coma Qualified Code(s): B18.2 - Chronic viral hepatitis C (6) Nicotine dependence Status: Acute Qualifiers: Nicotine product type: cigarettes Substance use status: in withdrawal Qualified Code(s): F17.213 - Nicotine dependence, cigarettes, with withdrawal (7) Weight loss Status: Acute - AMA Did Patient Leave Against Medical Advice: Yes
[2018-05-26] MEDS ORDERED: chlordiazePOXIDE HCL 10 MG CAPSULE PO SCH (05:00)
[2018-05-27] MEDS ORDERED: METHADONE HCL 10 MG TABLET (FOR DETOX USE ONLY) PO SCH (10:00)
[2018-05-28] MEDS ORDERED: METHADONE HCL 5 MG TABLET (FOR DETOX USE ONLY) PO SCH (06:00)
== END 2018-05-25 13:49 | disposition left against medical advice (07) | DRG 770 ==
LOC: YASAS 18:32 → Y3N 23:35
PROVIDERS: ADMIT Neuromusculoskeletal Medicine & OMM; ATTEND Neuromusculoskeletal Medicine & OMM
PROC: HZ2ZZZZ Detoxification Services for Substance Abuse Treatment (ICD-10-PCS; principal; 2018-05-22)
DX: F11.23 Opioid dependence with withdrawal (principal); F10.230 Alcohol dependence with withdrawal, uncomplicated; F14.20 Cocaine dependence, uncomplicated; F12.20 Cannabis dependence, uncomplicated; F17.213 Nicotine dependence, cigarettes, with withdrawal; F19.24 Other psychoactive substance dependence with psychoactive substance-induced mood disorder; B18.2 Chronic viral hepatitis C; B37.49 Other urogenital candidiasis; E87.1 Hypo-osmolality and hyponatremia; D72.829 Elevated white blood cell count, unspecified; R82.90 Unspecified abnormal findings in urine; R63.4 Abnormal weight loss; Z68.21 Body mass index [BMI] 21.0-21.9, adult
CPT/HCPCS: 36415; 80048; 80053; 81003; 81015; 82962; 85025; 85027; 86593; 93005; 93010

== ENCOUNTER 2018-10-02 08:48 | Inpatient (IN) | payer OTHER ==
--- NOTE | 2018-10-02 10:02 | HP ---
COWS - Scale Resting Pulse: 0= [place] 80 or Below Sweatin= Chills/Flushing Restless Observation: 1= Difficult to Sit Still Pupil Size: 1= Pupils >than Normal Bone or Joint Aches: 2= Severe Diffuse Aches Runny Nose/ Eye Tearin= Runny Nose/Eyes GI Upset > 30mins: 2= Nausea/Diarrhea Tremor Observation: 2= Slight Tremor Visible Yawning Observation: 2= >3x During Session Anxiety or Irritability: 2=Irritable/Anxious Goose Flesh Skin: 0=Smooth Skin COWS Score: 15 CIWA Score - Admission Criteria [facility]ASAS Guidelines: Admission for Medically Managed Detox: Requires at least one of the followin. CIWA greater than 12 2. Seizures within the past 24 hours 3. Delirium tremens within the past 24 hours 4. Hallucinations within the past 24 hours 5. Acute intervention needed for co occurring medical disorder 6. Acute intervention needed for co occurring psychiatric disorder 7. Severe withdrawal that cannot be handled at a lower level of care (continued vomiting, continued diarrhea, abnormal vital signs) requiring intravenous medication and/or fluids 8. Admission ROS [facility] Chief Complaint: i need help to stop using heroin,cocaine and marijuana Allergies/Adverse Reactions: Allergies Allergy/AdvReac Type Severity Reaction Status Date / Time No Known Allergies Allergy Verified 10/02/18 09:12 History of Present Illness: This 43 years old male with heroin,cocaine and marijuana dependence,seeking detox,withdrawal symptom, multiple admissions in detox but keep relapsing,last detox [facility] 05/22/18 to 05/25 hepatitis c nicotine dependence 1 pack/day, weight loss history of panic attack longest sobriety 5 years plan for rehab after detox asthma - Ebola screening Have you traveled outside of the country in the last 21 days: No Have you had contact with anyone from an Ebola affected area: No - Review of Systems Constitutional: Chills, Loss of Appetite, Malaise, Night Sweats, Changes in sleep, Weakness, Unintentional Wgt. Loss EENT: reports: Tearing, Nose Congestion Respiratory: reports: No Symptoms reported Cardiac: reports: No Symptoms Reported GI: reports: Nausea, Vomiting, Abdominal cramping : reports: No Symptoms Reported Musculoskeletal: reports: Back Pain, Joint Pain, Muscle Pain, Joint Stiffness Integumentary: reports: Dryness Neuro: reports: Headache, Tremors Endocrine: reports: No Symptoms Reported Hematology: reports: No Symptoms Reported Psychiatric: reports: No Sypmtoms Reported, Judgement Intact, Mood/Affect Appropiate, Orientated x3, other (panick attack) Patient History - Patient Medical History Hx Anemia: No Hx Asthma: Yes (Proventil) Hx Chronic Obstructive Pulmonary Disease (COPD): No Hx Cancer: No Hx Cardiac Disorders: No Hx Congestive Heart Failure: No Hx Hypertension: No Hx Hypercholesterolemia: No Hx Pacemaker: No HX Cerebrovascular Accident: No Hx Seizures: No Hx Dementia: No Hx Diabetes: No Hx Gastrointestinal Disorders: No Hx Liver Disease: No Hx Genitourinary Disorders: No Hx Sexually Transmitted Disorders: No Hx Renal Disease (ESRD): No Hx Thyroid Disease: No Hx Human Immunodeficiency Virus (HIV): No (04/20 negative) Hx Hepatitis C: Yes (undetecable- Not on medication) Hx Depression: No Hx Suicide Attempt: No (Denies suicidal ideation at this time) Hx Bipolar Disorder: Yes Hx Schizophrenia: No Other Medical History: no suicidal,no homicidal - Patient Surgical History Past Surgical History: Yes Hx Neurologic Surgery: No Hx Cataract Extraction: No Hx Cardiac Surgery: No Hx Lung Surgery: No Hx Breast Surgery: No Hx Breast Biopsy: No Hx Abdominal Surgery: Yes (appendectomy at age 36) Hx Appendectomy: No Hx Cholecystectomy: No Hx Genitourinary Surgery: No Hx Section: No Hx Orthopedic Surgery: No Hx Hysterectomy: No Anesthesia Reaction: No - PPD History Previous Implant?: Yes Documented Results: Negative w/proof Implanted On Prior [facility] Admission?: Yes Date: 09/23/17 Results: 0 PPD to be Administered?: No - Smoking Cessation Smoking history: Current every day smoker Have you smoked in the past 12 months: Yes Aproximately how many cigarettes per day: 20 Cigars Per Day: 0 Hx Chewing Tobacco Use: No Initiated information on smoking cessation: Yes 'Breaking Loose' booklet given: 10/02/18 - Substance & Tx. History Hx Alcohol Use: No Hx Substance Use: Yes Substance Use Type: Cocaine, Heroin, Marijuana Hx Substance Use Treatment: Yes ([facility] 05/22/18 to 05/25/18) - Substances abused Heroin Substance route: Injection Frequency: Daily Amount used: 10 bags Age of first use: 38 Date of last use: 10/02/18 Cocaine Substance route: Injection Frequency: Daily Amount used: 100$ Age of first use: 38 Date of last use: 10/02/18 Marijuana/Hashish Substance route: Smoking Amount used: 20$ Age of first use: 38 Date of last use: 10/02/18 Family Disease History - Family Disease History Family Disease History: [place]: Father (alcohol, ), Other: Father Admission Physical Exam BHS - Vital Signs Vital Signs: Vital Signs - 24 hr 10/02/18 09:50 Temperature 97.1 F L Pulse Rate 71 Respiratory 20 Rate Blood Pressure 120/82 - Physical General Appearance: Yes: Moderate Distress, Irritable, Sweating HEENTM: Yes: Normal ENT Inspection, Normocephalic, BRODERICK, Pharynx Normal Respiratory: Yes: Within Normal Limits, Lungs Clear, Normal Breath Sounds Neck: Yes: Within Normal Limits, Supple, Trachea in good position Breast: Yes: Within Normal Limits Cardiology: Yes: Within Normal Limits, Regular Rhythm, Regular Rate, S1, S2 Abdominal: Yes: Within Normal Limits, Normal Bowel Sounds, Non Tender, Soft Genitourinary: Yes: Within Normal Limits Back: Yes: Muscle Spasm Musculoskeletal: Yes: full range of Motion, Back pain, Muscle Pain Extremities: Yes: Tremors Neurological: Yes: Within Normal Limits, croze cutter II-XII NML intact, Fully Oriented, Alert, Motor Strength 5/5 Integumentary: Yes: Dry, Track Lewis Lymphatic: Yes: Within Normal Limits - Diagnostic (1) Opioid dependence with withdrawal Current Visit: No Status: Acute (2) Nicotine dependence Current Visit: No Status: Acute Qualifiers: Nicotine product type: cigarettes Substance use status: in withdrawal Qualified Code(s): F17.213 - Nicotine dependence, cigarettes, with withdrawal (3) Track lewis due to intravenous drug abuse Current Visit: No Status: Acute (4) Weight loss Current Visit: No Status: Acute (5) Asthma Current Visit: No Status: Chronic Qualifiers: Asthma severity: mild Asthma persistence: intermittent Asthma complication type: with status asthmaticus Qualified Code(s): J45.22 - Mild intermittent asthma with status asthmaticus (6) Cocaine dependence Current Visit: No Status: Chronic Qualifiers: Substance use status: uncomplicated Qualified Code(s): F14.20 - Cocaine dependence, uncomplicated (7) Hepatitis-C Current Visit: No Status: Chronic Qualifiers: Viral hepatitis chronicity: chronic Hepatic coma status: without hepatic coma Qualified Code(s): B18.2 - Chronic viral hepatitis C Comment: treated x 3 months completed (8) IVDU (intravenous drug user) Current Visit: Yes Status: Acute (9) Cannabis dependence Current Visit: Yes Status: Acute Cleared for Admission S - Detox or Rehab [facility] Level of Care: Medically Managed Detox Regimen/Protocol: Methadone Breathalyzer - Breathalyzer Breathalyzer: 0 Urine Drug Screen - Test Device Lot number: [id number] Expiration date: 06/02/20 - Control Is test valid?: Yes - Results Drug screen NEGATIVE: No Urine drug screen results: THC-Marijuana, ANDRE-Cocaine, MOP-Opiates Inpatient Rehab Admission - Rehab Decision to Admit Inpatient rehab admission?: No
[2018-10-02] MEDS ORDERED: MAGNESIUM HYDROX 2400MG/30ML ORAL SUSPENSION 30 ML CUP PO PRN (10:14)
[2018-10-02] MEDS ORDERED: MAG HYDROX/AL HYDROX/SIMETH 30 ML UNIT-DOSE CUP PO PRN (10:14)
[2018-10-02] MEDS ORDERED: cloNIDine HCL 0.1 MG TABLET PO PRN (10:14)
[2018-10-02] MEDS ORDERED: MAGNESIUM CITRATE 300 ML BOTTLE PO PRN (10:14)
[2018-10-02] MEDS ORDERED: METHOCARBAMOL 500 MG TABLET PO PRN (10:14)
[2018-10-02] MEDS ORDERED: NICOTINE POLACRILEX 2 MG GUM BUC PRN (10:14)
[2018-10-02] MEDS ORDERED: hydrOXYzine PAMOATE 25 MG CAPSULE (FP) PO PRN (10:14)
[2018-10-02] MEDS ORDERED: BISMUTH SUBSALICYLATE 262 MG/15 ML BTL PO PRN (10:14)
[2018-10-02] MEDS ORDERED: ACETAMINOPHEN 325 MG TABLET (FP) PO PRN ×2 (10:14)
[2018-10-02] MEDS ORDERED: MELATONIN 5 MG TABLETS PO PRN (10:14)
[2018-10-02] MEDS ORDERED: MENTHOL/PHENOL 1 EACH UD MM PRN (10:14)
[2018-10-02] MEDS ORDERED: IBUPROFEN 400 MG TABLET (FP) PO PRN (10:14)
[2018-10-02] MEDS ORDERED: METHADONE HCL 10 MG TABLET (FOR DETOX USE ONLY) PO ONE ×3 (10:45→23:00)
[2018-10-02] MEDS: NICOTINE 21 MG/24 HOURS TOPICAL PATCH TD SCH (13:38)
[2018-10-02] MEDS ORDERED: TRIMETHOBENZAMIDE HCL 200MG/2ML INJ IM ONE (19:22)
[2018-10-02] MEDS: THIAMINE HCL 100 MG TABLET (FP) PO SCH (22:46)
[2018-10-03] MEDS: diazePAM 5 MG TABLET PO PRN ×2 (08:52→17:43)
[2018-10-03 09:57] LABS: HEMATOCRIT 40.8 % (35.4-49); HEMOGLOBIN 13.1 GM/dL (11.7-16.9); MCH 27.7 pg (25.7-33.7); MCHC 32.1 g/dl (32.0-35.9); MEAN CELL VOLUME 86.5 fl (80-96); MEAN PLT VOLUME 9.5 fl (7.5-11.1); PLATELET COUNT 285 K/MM3 (134-434); RBC 4.71 M/mm3 (4.00-5.60); RDW 14.6 % (11.9-15.9); WHITE BLOOD COUNT 9.6 K/mm3 (4.0-10.0)
[2018-10-03] MEDS ORDERED: METHADONE HCL 10 MG TABLET (FOR DETOX USE ONLY) PO ONE (10:00)
[2018-10-03 10:24] LABS: ALBUMIN 3.5 g/dl (3.4-5.0); ALK PHOS 79 U/L (45-117); ANION GAP 6 MMOL/L (8-16); BILIRUBIN,TOTAL 0.4 mg/dL (0.2-1); BLOOD UREA NITROGEN 12 mg/dL (7-18); CALCIUM 9.1 mg/dL (8.5-10.1); CHLORIDE 102 mmol/L (98-107); CO2 27 mmol/L (21-32); CREATININE 0.7 mg/dL (0.55-1.3); GLUCOSE,RANDOM 83 mg/dL (74-106); POTASSIUM 4.6 mmol/L (3.5-5.1); SGOT/AST 32 U/L (15-37); SGPT/ALT 41 U/L (13-61); SODIUM 135 mmol/L (136-145); TOT PROT 7.6 g/dl (6.4-8.2)
[2018-10-03] MEDS: PROCHLORPERAZINE MALEATE 5 MG TABLET PO PRN ×2 (10:26→17:43)
[2018-10-03] MEDS: NICOTINE 21 MG/24 HOURS TOPICAL PATCH TD SCH (10:27)
[2018-10-03] MEDS: PRENATAL VITAMINS W/ FOLIC ACID TABLET (FP) PO SCH (10:27)
--- NOTE | 2018-10-03 14:39 | PN ---
[facility] COWS - Scale Resting Pulse: 0= [place] 80 or Below Sweatin= Chills/Flushing Restless Observation: 0= Sits Still Pupil Size: 0= Normal to Room Light Bone or Joint Aches: 2= Severe Diffuse Aches Runny Nose/ Eye Tearin= None GI Upset > 30mins: 3= Vomiting/Diarrhea Tremor Observation of Outstretched Hands: 2= Slight Tremor Visible Yawning Observation: 1= 1-2x During Session Anxiety or Irritability: 2=Irritable/Anxious Goose Flesh Skin: 3=Piloerection COWS Score: 14 BHS Progress Note (SOAP) Subjective: Body Aches, Vomiting, Tremors, Interrupted Sleep. Objective: PATIENT A & O X 3. IN NO ACUTE DISTRESS. 10/03/18 14:40 Vital Signs Temperature 98.6 F 10/03/18 13:52 Pulse Rate 58 L 10/03/18 13:52 Respiratory Rate 18 10/03/18 13:52 Blood Pressure 118/71 10/03/18 13:52 O2 Sat by Pulse Oximetry (%) Laboratory Tests 10/03/18 10/03/18 05:50 05:50 WBC 9.6 RBC 4.71 Hgb 13.1 Hct 40.8 MCV 86.5 MCH 27.7 MCHC 32.1 RDW 14.6 Plt Count 285 MPV 9.5 D Sodium 135 L Potassium 4.6 Chloride 102 Carbon Dioxide 27 Anion Gap 6 L BUN 12 Creatinine 0.7 Creat Clearance w eGFR 124.28 Random Glucose 83 Calcium 9.1 Total Bilirubin 0.4 AST 32 ALT 41 Alkaline Phosphatase 79 Total Protein 7.6 Albumin 3.5 LABS NOTED. RPR RESULT PENDING. 10/03/18 14:41 Assessment: 10/03/18 14:41 WITHDRAWAL SYMPTOMS. Plan: CONTINUE DETOX. PRN COMPAZINE PO FOR NAUSEA/VOMITING.
[2018-10-03] MEDS: THIAMINE HCL 100 MG TABLET (FP) PO SCH (22:28)
[2018-10-04 09:10] VITALS: BP 123/78; PULSE 67; TEMP 97.5
[2018-10-04] MEDS ORDERED: METHADONE HCL 10 MG TABLET (FOR DETOX USE ONLY) PO ONE (10:00)
[2018-10-04] MEDS: PRENATAL VITAMINS W/ FOLIC ACID TABLET (FP) PO SCH (10:24)
[2018-10-04] MEDS: NICOTINE 21 MG/24 HOURS TOPICAL PATCH TD SCH (10:25)
--- NOTE | 2018-10-04 17:17 | PN ---
[facility] COWS - Scale Resting Pulse: 0= [place] 80 or Below Sweatin= Chills/Flushing Restless Observation: 1= Difficult to Sit Still Pupil Size: 0= Normal to Room Light Bone or Joint Aches: 2= Severe Diffuse Aches Runny Nose/ Eye Tearin= None GI Upset > 30mins: 0= None Tremor Observation of Outstretched Hands: 0= None Yawning Observation: 1= 1-2x During Session Anxiety or Irritability: 2=Irritable/Anxious Goose Flesh Skin: 3=Piloerection COWS Score: 10 BHS Progress Note (SOAP) Subjective: Body Aches, Anxious, Interrupted Sleep. Objective: PATIENT A & O X 3, OBSERVED AMBULATING ON UNIT. IN NO ACUTE DISTRESS. 10/04/18 17:17 Vital Signs Temperature 97.5 F L 10/04/18 09:09 Pulse Rate 67 10/04/18 09:09 Respiratory Rate 18 10/04/18 09:09 Blood Pressure 123/78 10/04/18 09:09 O2 Sat by Pulse Oximetry (%) Laboratory Tests 10/03/18 10/03/18 10/03/18 05:50 05:50 05:50 WBC 9.6 RBC 4.71 Hgb 13.1 Hct 40.8 MCV 86.5 MCH 27.7 MCHC 32.1 RDW 14.6 Plt Count 285 MPV 9.5 D Sodium 135 L Potassium 4.6 Chloride 102 Carbon Dioxide 27 Anion Gap 6 L BUN 12 Creatinine 0.7 Creat Clearance w eGFR 124.28 Random Glucose 83 Calcium 9.1 Total Bilirubin 0.4 AST 32 ALT 41 Alkaline Phosphatase 79 Total Protein 7.6 Albumin 3.5 RPR Titer Nonreactive LABS NOTED. Assessment: 10/04/18 17:17 WITHDRAWAL SYMPTOMS. Plan: CONTINUE DETOX.
--- NOTE | 2018-10-04 17:19 | DS ---
[facility] Detox Discharge Summary Admission Date: 10/02/18 Discharge Date: 10/04/18 - History Present History: Cannabis Dependence, Cocaine Dependence, Opioid Dependence Additional Comments: DESPITE EFFORTS BY COL[employer]OR OF INTERNAL REVENUE AND BY NURSING STAFF TO ADDRESS PATIENT'S MEDICAL NEEDS / CONCERNS, PATIENT DOES NOT WISH TO REMAIN TO COMPLETE DETOX REGIMEN. RISKS OF LEAVING DETOX UNIT AGAINST MEDICAL ADVICE AND PRIOR TO COMPLETION OF DETOX REGIMEN EXPLAINED TO PATIENT. PATIENT ADVISED TO GO IMMEDIATELY TO NEAREST ER SHOULD ANY INTOLERABLE WITHDRAWAL / DETOX SYMPTOMS DEVELOP AT ANY TIME. PATIENT VERBALIZED UNDERSTANDING OF ALL INFORMATION / RECOMMENDATIONS PRESENTED TO HIM PRIOR TO DEPARTURE FROM DETOX UNIT. PATIENT LEFT DETOX UNIT IN STABLE MEDICAL CONDITION. Pertinent Past History: Asthma, Hep C, Nicotine Dependence, Weight Loss, History of Panic Attacks, Intravenous Drug Use (I.V.D.U.), Track Lewis Due to Intravenous Drug Use. - Physical Exam Results Vital Signs: Vital Signs Temperature 97.5 F L 10/04/18 09:09 Pulse Rate 67 10/04/18 09:09 Respiratory Rate 18 10/04/18 09:09 Blood Pressure 123/78 10/04/18 09:09 O2 Sat by Pulse Oximetry (%) Pertinent Admission Physical Exam Findings: WITHDRAWAL SYMPTOMS. Laboratory Tests 10/03/18 10/03/18 10/03/18 05:50 05:50 05:50 WBC 9.6 RBC 4.71 Hgb 13.1 Hct 40.8 MCV 86.5 MCH 27.7 MCHC 32.1 RDW 14.6 Plt Count 285 MPV 9.5 D Sodium 135 L Potassium 4.6 Chloride 102 Carbon Dioxide 27 Anion Gap 6 L BUN 12 Creatinine 0.7 Creat Clearance w eGFR 124.28 Random Glucose 83 Calcium 9.1 Total Bilirubin 0.4 AST 32 ALT 41 Alkaline Phosphatase 79 Total Protein 7.6 Albumin 3.5 RPR Titer Nonreactive LABS NOTED. - Treatment Hospital Course: Detox Protocol Followed, Detoxed Safely - Medication Discharge Medications: Ambulatory Orders NK [No Known Home Medication] 10/02/18 - Diagnosis (1) Hyponatremia Status: Acute (2) IVDU (intravenous drug user) Status: Acute (3) Nicotine dependence Status: Acute Qualifiers: Nicotine product type: cigarettes Substance use status: in withdrawal Qualified Code(s): F17.213 - Nicotine dependence, cigarettes, with withdrawal (4) Opioid dependence with withdrawal Status: Acute (5) Track lewis due to intravenous drug abuse Status: Acute (6) Weight loss Status: Acute (7) Asthma Status: Chronic Qualifiers: Asthma severity: mild Asthma persistence: intermittent Asthma complication type: with status asthmaticus Qualified Code(s): J45.22 - Mild intermittent asthma with status asthmaticus (8) Cocaine dependence, uncomplicated Status: Chronic (9) History of hepatitis C Status: Resolved (10) Cannabis dependence, uncomplicated Status: Chronic - AMA Did Patient Leave Against Medical Advice: Yes (PATIENT DID NOT WISH TO REMAIN TO COMPLETE DETOX REGIMEN.)
[2018-10-05] MEDS ORDERED: METHADONE HCL 10 MG TABLET (FOR DETOX USE ONLY) PO ONE (10:00)
[2018-10-06] MEDS ORDERED: METHADONE HCL 5 MG TABLET (FOR DETOX USE ONLY) PO ONE (06:00)
== END 2018-10-04 11:00 | disposition left against medical advice (07) | DRG 770 ==
LOC: YASAS 08:48 → Y3N 10:28
PROVIDERS: ADMIT Surgery; ATTEND Surgery
PROC: HZ2ZZZZ Detoxification Services for Substance Abuse Treatment (ICD-10-PCS; principal; 2018-10-02)
DX: F11.23 Opioid dependence with withdrawal (principal); F14.20 Cocaine dependence, uncomplicated; F12.20 Cannabis dependence, uncomplicated; F17.213 Nicotine dependence, cigarettes, with withdrawal; B18.2 Chronic viral hepatitis C; J45.22 Mild intermittent asthma with status asthmaticus; E87.1 Hypo-osmolality and hyponatremia; L90.5 Scar conditions and fibrosis of skin; R63.4 Abnormal weight loss
CPT/HCPCS: 36415; 80053; 85027; 86593

== ENCOUNTER 2020-08-31 08:40 | Inpatient (IN) | payer OTHER ==
[2020-08-31 10:06] VITALS: BMI 25.4
[2020-08-31] MEDS ORDERED: NICOTINE POLACRILEX 2 MG GUM BUC PRN (10:44)
[2020-08-31] MEDS ORDERED: METHADONE HCL 10 MG TABLET (FOR DETOX USE ONLY) PO ONE (10:44)
[2020-08-31] MEDS ORDERED: METHOCARBAMOL 500 MG TABLET PO PRN (10:44)
[2020-08-31] MEDS ORDERED: MAGNESIUM HYDROX 2400MG/30ML ORAL SUSPENSION 30 ML CUP PO PRN (10:44)
[2020-08-31] MEDS ORDERED: IBUPROFEN 400 MG TABLET (FP) PO PRN (10:44)
[2020-08-31] MEDS ORDERED: MAG HYDROX/AL HYDROX/SIMETH 30 ML UNIT-DOSE CUP PO PRN (10:44)
[2020-08-31] MEDS ORDERED: ACETAMINOPHEN 325 MG TABLET (FP) PO PRN ×2 (10:44)
[2020-08-31] MEDS ORDERED: cloNIDine HCL 0.1 MG TABLET PO PRN (10:44)
[2020-08-31] MEDS ORDERED: BISMUTH SUBSALICYLATE 524 MG/30 ML UD PO PRN (10:44)
[2020-08-31] MEDS ORDERED: ONDANSETRON *ODT* 4 MG TABLET SL PRN (10:44)
[2020-08-31] MEDS ORDERED: MENTHOL/PHENOL 1 EACH UD MM PRN (10:44)
[2020-08-31] MEDS ORDERED: chlordiazePOXIDE HCL 25 MG CAPSULE PO PRN (10:44)
[2020-08-31] MEDS ORDERED: MAGNESIUM CITRATE 300 ML BOTTLE PO PRN (10:44)
[2020-08-31] MEDS: hydrOXYzine PAMOATE 25 MG CAPSULE (FP) PO SCH ×3 (13:38→22:24)
[2020-08-31] MEDS: SILVER SULFADIAZINE 1% TOP CREAM 50 GM JAR TP SCH ×2 (16:50→22:28)
[2020-08-31] MEDS: chlordiazePOXIDE HCL 25 MG CAPSULE PO SCH ×2 (17:51→22:24)
[2020-08-31] MEDS: MELATONIN 5 MG TABLETS PO SCH (22:24)
[2020-08-31] MEDS: THIAMINE HCL 100 MG TABLET (FP) PO SCH (22:24)
[2020-09-01] MEDS: hydrOXYzine PAMOATE 25 MG CAPSULE (FP) PO SCH ×5 (07:10→23:05)
[2020-09-01] MEDS: chlordiazePOXIDE HCL 25 MG CAPSULE PO SCH ×4 (07:13→23:04)
[2020-09-01] MEDS ORDERED: METHADONE HCL 5 MG TABLET (FOR DETOX USE ONLY) ONE (09:52)
[2020-09-01] MEDS ORDERED: METHADONE HCL 10 MG TABLET (FOR DETOX USE ONLY) ONE (09:52)
[2020-09-01] MEDS ORDERED: METHADONE (DETOX) 20 MG, METHADONE (DETOX) 5 MG PO ONE (10:00)
[2020-09-01] MEDS ORDERED: PRENATAL VITAMINS W/ FOLIC ACID TABLET (FP) PO SCH (10:00)
[2020-09-01] MEDS: SILVER SULFADIAZINE 1% TOP CREAM 50 GM JAR TP SCH ×2 (11:00→23:05)
[2020-09-01] MEDS ORDERED: amLODIPine BESYLATE 5 MG TABLET (FP) PO SCH (12:00)
[2020-09-01 12:08] LABS: HEMATOCRIT 39.4 % (35.4-49); HEMOGLOBIN 13.3 GM/dL (11.7-16.9); MCH 27.6 pg (25.7-33.7); MCHC 33.8 g/dl (32.0-35.9); MEAN CELL VOLUME 81.7 fl (80-96); MEAN PLT VOLUME 8.2 fl (7.5-11.1); PLATELET COUNT 290 K/MM3 (134-434); RBC 4.82 M/mm3 (4.00-5.60); WHITE BLOOD COUNT 9.9 K/mm3 (4.0-10.0)
[2020-09-01 12:13] LABS: POTASSIUM 4.2 mmol/L (3.5-5.1)
[2020-09-01 12:23] LABS: ALBUMIN 3.2 g/dl (3.4-5.0); BLOOD UREA NITROGEN 12.5 mg/dL (7-18); CALCIUM 8.8 mg/dL (8.5-10.1)
[2020-09-01 12:26] LABS: CREATININE 0.6 mg/dL (0.55-1.3)
[2020-09-01 12:28] LABS: BILIRUBIN,TOTAL 0.6 mg/dL (0.2-1)
[2020-09-01 12:29] LABS: TOT PROT 7.5 g/dl (6.4-8.2)
[2020-09-01] MEDS: THIAMINE HCL 100 MG TABLET (FP) PO SCH (23:04)
[2020-09-01] MEDS: MELATONIN 5 MG TABLETS PO SCH (23:05)
[2020-09-02] MEDS ORDERED: chlordiazePOXIDE HCL 25 MG CAPSULE PO SCH (05:00)
[2020-09-02] MEDS: hydrOXYzine PAMOATE 25 MG CAPSULE (FP) PO SCH (06:01)
[2020-09-02] MEDS ORDERED: METHADONE HCL 10 MG TABLET (FOR DETOX USE ONLY) PO ONE (10:00)
[2020-09-02 10:58] VITALS: BP 132/79; PULSE 82; TEMP 97.1
[2020-09-03] MEDS ORDERED: chlordiazePOXIDE HCL 10 MG CAPSULE PO PRN
[2020-09-03] MEDS ORDERED: chlordiazePOXIDE HCL 10 MG CAPSULE PO SCH (05:00)
[2020-09-03] MEDS ORDERED: METHADONE (DETOX) 10 MG, METHADONE (DETOX) 5 MG PO ONE (10:00)
[2020-09-04] MEDS ORDERED: chlordiazePOXIDE HCL 10 MG CAPSULE PO SCH (05:00)
[2020-09-04] MEDS ORDERED: METHADONE HCL 10 MG TABLET (FOR DETOX USE ONLY) PO ONE (10:00)
[2020-09-05] MEDS ORDERED: chlordiazePOXIDE HCL 10 MG CAPSULE PO ONE (05:00)
[2020-09-05] MEDS ORDERED: METHADONE HCL 5 MG TABLET (FOR DETOX USE ONLY) PO ONE (06:00)
== END 2020-09-02 10:05 | disposition left against medical advice (07) | DRG 770 ==
LOC: YASAS 08:40 → Y6N 12:23
PROVIDERS: ADMIT Allergy & Immunology; ATTEND Allergy & Immunology
PROC: HZ2ZZZZ Detoxification Services for Substance Abuse Treatment (ICD-10-PCS; principal; 2020-08-31)
DX: F11.23 Opioid dependence with withdrawal (principal); F10.230 Alcohol dependence with withdrawal, uncomplicated; I10 Essential (primary) hypertension; L97.811 Non-pressure chronic ulcer of other part of right lower leg limited to breakdown of skin
CPT/HCPCS: 36415; 80053; 81025; 85027; 86780; C9803; J0735; Q0162; U0003